=== PATIENT | male | born 1935 ===

== ENCOUNTER 2017-02-08 09:14 | Emergency (ER) | payer MEDICARE, OTHER ==
[2017-02-08 09:22] VITALS: BMI 30.9
[2017-02-08 09:25] VITALS: RESP 18
[2017-02-08 10:10] LABS: BASO % 0.5 % (0.0-2.0); EOS # 0.2 K/uL (0.0-0.7); EOS % 3.6 % (0.0-4.0); LYMPH # 1.2 K/uL (1.0-4.3); LYMPH % 21.1 % (20.0-40.0); MEAN CELL VOLUME 97.8 fL (80.0-94.0); MEAN CORPUSCULAR HEMOGLOBIN 31.8 pg (27.0-31.0); MEAN CORPUSCULAR HGB CONC 32.6 g/dL (33.0-37.0); MEAN PLATELET VOLUME 9.7 fL (7.2-11.7); MONO # 0.3 K/uL (0.0-0.8); MONO % 4.9 % (0.0-10.0); NEUT # 3.9 K/uL (1.8-7.0); NEUT % 69.9 % (50.0-75.0); NRBC % 0.1 % (0.0-2.0); RBC 3.78 Mil/uL (4.40-5.90); RED CELL DISTRIBUTION WIDTH 13.4 % (11.5-14.5); WHITE BLOOD COUNT 5.6 K/uL (4.8-10.8)
[2017-02-08 10:19] LABS: ALBUMIN 3.8 g/dL (3.5-5.0)
[2017-02-08 10:22] LABS: ALB/GLOB RATIO 1.1 (1.0-2.1); AST/SGOT 19 U/L (17-59); BLOOD UREA NITROGEN 20 mg/dL (9-20); GFR AFRICAN-AMERICAN > 60; GFR NON-AFRICAN AMERICAN > 60
[2017-02-08 10:23] LABS: ALT/SGPT 16 U/L (21-72); CALCIUM 8.5 mg/dl (8.6-10.4); LIPASE 79 U/L (23-300)
[2017-02-08] MEDS ORDERED: (Novolin R) Insulin Human Regular 100 units/ml vial IV ONE (10:28)
[2017-02-08 10:29] LABS: CK-MB 1.14 ng/mL (0.0-3.38)
--- NOTE | 2017-02-08 10:37 | C.PDOC ---
History Of Present Illness 81 y/o male that presents to the ED for evaluation of constant mid and low back pain that radiates to chest for the last 6 days. Patient states that pain is worse with movement. Notes having similar symptoms in the past when he was in [place], seen by a physician there at that time who provided pain medication - patient unsure of the cause his symptoms. He denies extremity weakness, sensory changes, urinary/bowel incontinence, urinary retention, dysuria, abdominal pain, nausea, vomiting, shortness of breath, fever/chills, Time Seen by Provider: 02/08/17 09:28 Chief Complaint (Nursing): Back Pain History Per: Patient History/Exam Limitations: no limitations Onset/Duration Of Symptoms: Days (6) Current Symptoms Are (Timing): Still Present Quality Of Discomfort: "Pain" Severity: Moderate Previous Symptoms: Back Pain. denies: Chronic Pain Associated Symptoms: None. denies: Incontinence, New Weakness, New Numbness Exacerbating Factor(s): Movement Additional History Per: Patient Past Medical History Reviewed: Historical Data, Nursing Documentation, Vital Signs Vital Signs: Last Vital Signs Temp 98.1 F 02/08/17 14:10 Pulse 52 L 02/08/17 14:10 Resp 18 02/08/17 14:10 BP 121/60 02/08/17 14:10 Pulse Ox 96 02/08/17 14:10 - Medical History PMH: Cardia Arrhythmia, Diabetes (IDDM), HTN, Hypercholesterolemia, Peripheral Edema Family History: States: No Known Family Hx - Social History Hx Alcohol Use: No Hx Substance Use: No - Immunization History Hx Tetanus Toxoid Vaccination: No Hx Influenza Vaccination: No Hx Pneumococcal Vaccination: No Review Of Systems Except As Marked, All Systems Reviewed And Found Negative. Constitutional: Negative for: Fever, Chills Cardiovascular: Negative for: Chest Pain Respiratory: Negative for: Cough, Shortness of Breath Gastrointestinal: Negative for: Nausea, Vomiting, Abdominal Pain Genitourinary: Negative for: Dysuria, Frequency, Incontinence Musculoskeletal: Positive for: Back Pain Skin: Negative for: Rash Neurological: Negative for: Weakness, Numbness Physical Exam - Physical Exam Appears: Non-toxic, Other (In moderate pain) Skin: Normal Color, Warm, Dry, No Rash Head: Atraumatic, Normacephalic Eye(s): bilateral: Normal Inspection Oral Mucosa: Moist Neck: Normal, Normal ROM, No Midline Cervical Tenderness, No Paracervical Tenderness, No Step Off Deformity, Supple Chest: Symmetrical, No Tenderness Cardiovascular: Rhythm Regular Respiratory: Normal Breath Sounds, No Rales, No Rhonchi, No Wheezing Gastrointestinal/Abdominal: Normal Exam, Bowel Sounds, Soft, No Tenderness, Other (obese abdomen) Back: No CVA Tenderness, No Vertebral Tenderness, Paraspinal Tenderness ( bilateral lower thoracic/upper lumbar paraspinal TTP) Extremity: Normal ROM, No Tenderness, No Pedal Edema, No Calf Tenderness, No Deformity Extremity: Bilateral: Atraumatic, Normal Color And Temperature, Normal ROM Pulses: Left Dorsalis Pedis: Normal, Right Dorsalis Pedis: Normal Neurological/Psych: Oriented x3, Normal Motor, Normal Sensation Gait: Steady ED Course And Treatment - Laboratory Results Result Diagrams: 02/08/17 10:02 02/08/17 10:02 ECG: Interpreted By Me, Viewed By Me (NSR 68 bpm, normal axis, RBBB, no acute ST changes) ECG Interpretation: No Acute Changes O2 Sat by Pulse Oximetry: 100 (on RA) Pulse Ox Interpretation: Normal - CT Scan/US ct chest/abd angio Other Rad Studies (CT/US): Read By Radiologist, Radiology Report Reviewed CT/US Interpretation: Accession No. : [id number]. Patient Name / ID : EDUARDO STEVE / [id number]. Exam Date : 02/08/2017 11:24:45 ( Approved ). Study Comment : Sex / Age : M / 81Y. Creator : KAREN RHODES. Dictator : Manager Eligibility : Lab Instructor : KAREN RHODES. Approver2 : Report Date : 2016 20:36:00. My Comment : . [facility] Division of Radiology. [address] [place] [address]. Tel. no. . . . Patient Name: EVI CLARK . Pt. Address: [address] [place] [address]. Rec #: [id number]. [place] [address]: Hrotencia Cardoso DO Pt Phone: Order Location: [facility] : 1935 Male Age : 81 Order #: [id number]. Reason for exam: back, chest, epigastric pain - evaluate aorta. . . . . . CT Scan. . . ANGIO CHEST/ABDOMEN/PELVIS Exam Date: . . This imaging exam was performed at [facility]. EXAM: CT Chest Without and With Intravenous Contrast. CT Abdomen and Pelvis Without and With Intravenous Contrast. . CLINICAL HISTORY: 81 years old, male; Pain; Chest pain; Type not specified; Abdominal pain;. Epigastric; Additional info: Back, chest, epigastric pain - evaluate aorta. . TECHNIQUE: Axial computed tomography images of the chest, abdomen and pelvis without and. with intravenous contrast during the arterial phase of enhancement. This CT. exam was performed using one or more of the following dose reduction. techniques: automated exposure control, adjustment of the mA and/or kV. according to patient size, and/or use of iterative reconstruction technique. Coronal and sagittal reformatted images were created and reviewed. . CONTRAST: 100 mL of [id number] administered intravenously. . COMPARISON: No relevant prior studies available. . FINDINGS: . VASCULATURE: Aorta: No acute findings. No aortic aneurysm. No dissection. Pulmonary arteries: Unremarkable as visualized. No pulmonary embolism is. identified. Great vessels of aortic arch: No acute findings. No dissection. No. arterial occlusion or significant stenosis. Celiac trunk and mesenteric arteries: No acute findings. No occlusion or. significant stenosis. Renal arteries: No acute findings. No occlusion or significant stenosis. Iliac arteries: No acute findings. No occlusion or significant stenosis. . CHEST: Lungs: Hypoventilatory changes are noted in the dependent portion of both. lung bases. Pleural space: Unremarkable. No significant effusion. No pneumothorax. Heart: Unremarkable. No cardiomegaly. No significant pericardial effusion. Mediastinum: There is a small hiatal hernia. Thyroid: The 1.7 cm hypodense nodule is noted in the right lobe of the. thyroid posteriorly. . ABDOMEN: Liver: Hepatic parenchymal calcifications are present. Gallbladder and bile ducts: Unremarkable. No calcified stones. No ductal. dilation. Pancreas: Unremarkable. No ductal dilation. No mass. Spleen: Unremarkable. No splenomegaly. Adrenals: Unremarkable. No mass. Kidneys and ureters: Parapelvic cyst is noted in the mid right kidney with a. maximum diameter of 4 cm and a density measurement of 6H. A. 4 mm low density. lesion in the upper pole right kidney is too small to fully characterize. An. exophytic cyst projects off the midportion of the left kidney with a maximal. diameter of 1.3 cm and in the density measurement of 4H. A second cyst seen in. the upper pole of the left kidney with a maximum diameter 1.4 cm and a density. measurement of 8H In the lower pole of left kidney there is a 1.9 cm cyst with. a density measurement of 6H. No obstructing stones. Stomach and bowel: Unremarkable. No obstruction. No mucosal thickening. Appendix: No findings to suggest acute appendicitis. . PELVIS: Bladder: Unremarkable. No stones. No mass. Reproductive: Unremarkable as visualized. . CHEST, ABDOMEN and PELVIS: Intraperitoneal space: Unremarkable. No significant fluid collection. No. free air. Bones/joints: Degenerative changes are noted of the thoracic spine. Bridging osteophytes are noted on the right side of several adjacent thoracic. vertebral bodies. No acute fracture. No dislocation. Soft tissues: Unremarkable. Lymph nodes: Unremarkable. No enlarged lymph nodes. . IMPRESSION: 1. No evidence of a aortic dissection or aneurysm. No pulmonary embolism. . 2. Small hiatal hernia. . 3. Bilateral renal cysts. . 4. Degenerative changes of the thoracic spine. . 5. Nodule in the right lobe of the thyroid measuring 1.7 cm. . . . . EXAM: CT Abdomen and Pelvis Without and With Intravenous Contrast. . CLINICAL HISTORY: 81 years old, male; Pain; Chest pain; Type not specified; Abdominal pain;. Epigastric; Additional info: Back, chest, epigastric pain - evaluate aorta. . TECHNIQUE: Axial computed tomography images of the abdomen and pelvis without and with. intravenous contrast during the arterial phase of enhancement. This CT exam. was performed using one or more of the following dose reduction techniques: automated exposure control, adjustment of the mA and/or kV according to patient. size, and/or use of iterative reconstruction technique. Coronal and sagittal reformatted images were created and reviewed. . CONTRAST: 100 mL of [id number] administered intravenously. . EXAM DATE/TIME: Exam ordered 02/08/2017 9 :45 AM. . COMPARISON: No relevant prior studies available. . FINDINGS: Lower thorax: No acute findings. . VASCULATURE: Aorta: No acute findings. No abdominal aortic aneurysm. No dissection. Celiac trunk and mesenteric arteries: No acute findings. No occlusion or. significant stenosis. Renal arteries: No acute findings. No occlusion or significant stenosis. Iliac arteries: No acute findings. No occlusion or significant stenosis. . ABDOMEN : Liver: Hepatic parenchymal calcifications are present. Gallbladder and bile ducts: Unremarkable. No calcified stones. No ductal. dilation. Pancreas: Unremarkable. No ductal dilation. No mass. Spleen: Unremarkable. No splenomegaly. Adrenals: Unremarkable. No mass. Kidneys and ureters: Parapelvic cyst is noted in the mid right kidney with a. maximum diameter of 4 cm and a density measurement of 6H.. A 4 mm low density. lesion in the upper pole right kidney is too small to fully characterize. An. exophytic cyst projects off the midportion of the left kidney with a maximal. diameter of 1.3 cm and a density measurement of 4H. A second cyst seen in the. upper pole of the left kidney with a maximum diameter 1.4 cm and a density. measurement of 8H. In the lower pole of left kidney there is a 1.9 cm cyst. with a density measurement of 6H. No obstructing stones. Stomach and bowel: Unremarkable. No obstruction. No mucosal thickening. Appendix: No findings to suggest acute appendicitis. . PELVIS: Bladder: Unremarkable. No stones. No mass. Reproductive: The prostate measures 4.7 x 4.8 x 5.6 cm. . ABDOMEN and PELVIS : Intraperitoneal space: Unremarkable. No significant fluid collection. No. free air. Bones/joints: No acute fracture. No dislocation. Soft tissues: There is a small umbilical hernia containing fat. Lymph nodes: Unremarkable. No enlarged lymph nodes. . IMPRESSION: 1. No evidence of aortic dissection. . 2. Hepatic parenchymal calcifications suggest previous granulomatous disease. . 3. Bilateral renal cysts. . 4. Small umbilical hernia containing fat. . Dictated By: Karen Rhodes MD. Dictated Date/Time: 02/08/172035. Signed By: Karen Rhodes MD. Date Signed: 02/08/172035. Transcribed By: MEDMIREILLE. Transcribe Date/Time: 02/08/172035. [facility] Progress Note: Blood work, EKG, CT Angio chest/abdomen ordered and reviewed. Patient given PO tylenol and flexeril. IV insulin given for hyperglycemia. Reevaluation Time: 13:50 Reassessment Condition: Improved (On reassessment, patient states his pain has improved and he feels better. He is ambulating normally in ED. CT angio (-) for aortic dissection/PE. Patient made aware of incidental CT findings and given copies of results to bring to his doctor. He was instructed to follow up with PMD in 1-2 days, and understands he should return to ED if symptoms worsen. ) Disposition Counseled Patient/Family Regarding: Studies Performed, Diagnosis, Need For Followup, Rx Given - Disposition Referrals: Andre Freedman MD [Staff Provider] - Disposition: HOME/ ROUTINE Disposition Time: 13:55 Condition: STABLE Additional Instructions: SEGUIMIENTO CON VELAZQUEZ MDICO EN 1-2 VAZ USE MEDICAMENTOS NARCISA SEA NECESARIO DEVUELVA A LA GEOVANNY DE EMERGENCIA SI LOS SNTOMAS EMPEORARAN Prescriptions: Cyclobenzaprine [Cyclobenzaprine HCl] 10 mg PO BID PRN #12 tab PRN Reason: pain/muscle Naproxen [Naprosyn Tab] 375 mg PO BID PRN #20 tab PRN Reason: pain Instructions: Back Pain (ED) Print Language: SLOVAK - POA Present On Arrival: None - Clinical Impression Clinical Impression: Back pain - Scribe Statement The provider has reviewed the documentation as recorded by the Angelineiblora Thakur All medical record entries made by the Angelineiblora were at my direction and personally dictated by me. I have reviewed the chart and agree that the record accurately reflects my personal performance of the history, physical exam, medical decision making, and the department course for this patient. I have also personally directed, reviewed, and agree with the discharge instructions and disposition.
[2017-02-08] MEDS ORDERED: (Novolin R) Insulin Human Regular 100 units/ml vial ONE (11:04)
[2017-02-08] MEDS ORDERED: Iodixanol 320 mg/ml 150 ml Bottle IV ONE (11:18)
[2017-02-08 11:38] LABS: URINE BILIRUBIN NEGATIVE (NEGATIVE); URINE CLARITY Clear (Clear); URINE COLOR Yellow (YELLOW); URINE GLUCOSE (UA) 3+ mg/dL (Normal); URINE LEUKOCYTE ESTERASE NEG Leu/uL (Negative); URINE NITRATE NEGATIVE (NEGATIVE); URINE PROTEIN 1+ mg/dL (NEGATIVE); URINE UROBILINOGEN NORMAL mg/dL (0.2-1.0)
[2017-02-08 11:45] LABS: SQUAMOUS EPITHIAL 1 /hpf (0-5)
[2017-02-08 11:46] LABS: URINE BLOOD TRACE (NEGATIVE)
[2017-02-08 12:17] VITALS: PULSE 52
[2017-02-08 14:11] VITALS: BP 121/60; TEMP 98.1
--- NOTE | 2017-02-08 20:37 | CT ---
EXAM: CT Chest Without and With Intravenous Contrast CT Abdomen and Pelvis Without and With Intravenous Contrast CLINICAL HISTORY: 81 years old, male; Pain; Chest pain; Type not specified; Abdominal pain; Epigastric; Additional info: Back, chest, epigastric pain - evaluate aorta TECHNIQUE: Axial computed tomography images of the chest, abdomen and pelvis without and with intravenous contrast during the arterial phase of enhancement. This CT exam was performed using one or more of the following dose reduction techniques: automated exposure control, adjustment of the mA and/or kV according to patient size, and/or use of iterative reconstruction technique. Coronal and sagittal reformatted images were created and reviewed. CONTRAST: 100 mL of [id number] administered intravenously. COMPARISON: No relevant prior studies available. FINDINGS: VASCULATURE: Aorta: No acute findings. No aortic aneurysm. No dissection. Pulmonary arteries: Unremarkable as visualized. No pulmonary embolism is identified. Great vessels of aortic arch: No acute findings. No dissection. No arterial occlusion or significant stenosis. Celiac trunk and mesenteric arteries: No acute findings. No occlusion or significant stenosis. Renal arteries: No acute findings. No occlusion or significant stenosis. Iliac arteries: No acute findings. No occlusion or significant stenosis. CHEST: Lungs: Hypoventilatory changes are noted in the dependent portion of both lung bases. Pleural space: Unremarkable. No significant effusion. No pneumothorax. Heart: Unremarkable. No cardiomegaly. No significant pericardial effusion. Mediastinum: There is a small hiatal hernia. Thyroid: The 1.7 cm hypodense nodule is noted in the right lobe of the thyroid posteriorly ABDOMEN: Liver: Hepatic parenchymal calcifications are present. Gallbladder and bile ducts: Unremarkable. No calcified stones. No ductal dilation. Pancreas: Unremarkable. No ductal dilation. No mass. Spleen: Unremarkable. No splenomegaly. Adrenals: Unremarkable. No mass. Kidneys and ureters: Parapelvic cyst is noted in the mid right kidney with a maximum diameter of 4 cm and a density measurement of 6H. A. 4 mm low density lesion in the upper pole right kidney is too small to fully characterize. An exophytic cyst projects off the midportion of the left kidney with a maximal diameter of 1.3 cm and in the density measurement of 4H. A second cyst seen in the upper pole of the left kidney with a maximum diameter 1.4 cm and a density measurement of 8H In the lower pole of left kidney there is a 1.9 cm cyst with a density measurement of 6H. No obstructing stones. Stomach and bowel: Unremarkable. No obstruction. No mucosal thickening. Appendix: No findings to suggest acute appendicitis. PELVIS: Bladder: Unremarkable. No stones. No mass. Reproductive: Unremarkable as visualized. CHEST, ABDOMEN and PELVIS: Intraperitoneal space: Unremarkable. No significant fluid collection. No free air. Bones/joints: Degenerative changes are noted of the thoracic spine. Bridging osteophytes are noted on the right side of several adjacent thoracic vertebral bodies. No acute fracture. No dislocation. Soft tissues: Unremarkable. Lymph nodes: Unremarkable. No enlarged lymph nodes. IMPRESSION: 1. No evidence of a aortic dissection or aneurysm. No pulmonary embolism. 2. Small hiatal hernia 3. Bilateral renal cysts. 4. Degenerative changes of the thoracic spine. 5. Nodule in the right lobe of the thyroid measuring 1.7 cm EXAM: CT Abdomen and Pelvis Without and With Intravenous Contrast CLINICAL HISTORY: 81 years old, male; Pain; Chest pain; Type not specified; Abdominal pain; Epigastric; Additional info: Back, chest, epigastric pain - evaluate aorta TECHNIQUE: Axial computed tomography images of the abdomen and pelvis without and with intravenous contrast during the arterial phase of enhancement. This CT exam was performed using one or more of the following dose reduction techniques: automated exposure control, adjustment of the mA and/or kV according to patient size, and/or use of iterative reconstruction technique. Coronal and sagittal reformatted images were created and reviewed. CONTRAST: 100 mL of [id number] administered intravenously. EXAM DATE/TIME: Exam ordered 02/08/2017 9:45 AM COMPARISON: No relevant prior studies available. FINDINGS: Lower thorax: No acute findings. VASCULATURE: Aorta: No acute findings. No abdominal aortic aneurysm. No dissection. Celiac trunk and mesenteric arteries: No acute findings. No occlusion or significant stenosis. Renal arteries: No acute findings. No occlusion or significant stenosis. Iliac arteries: No acute findings. No occlusion or significant stenosis. ABDOMEN: Liver: Hepatic parenchymal calcifications are present. Gallbladder and bile ducts: Unremarkable. No calcified stones. No ductal dilation. Pancreas: Unremarkable. No ductal dilation. No mass. Spleen: Unremarkable. No splenomegaly. Adrenals: Unremarkable. No mass. Kidneys and ureters: Parapelvic cyst is noted in the mid right kidney with a maximum diameter of 4 cm and a density measurement of 6H.. A 4 mm low density lesion in the upper pole right kidney is too small to fully characterize. An exophytic cyst projects off the midportion of the left kidney with a maximal diameter of 1.3 cm and a density measurement of 4H. A second cyst seen in the upper pole of the left kidney with a maximum diameter 1.4 cm and a density measurement of 8H. In the lower pole of left kidney there is a 1.9 cm cyst with a density measurement of 6H. No obstructing stones. Stomach and bowel: Unremarkable. No obstruction. No mucosal thickening. Appendix: No findings to suggest acute appendicitis. PELVIS: Bladder: Unremarkable. No stones. No mass. Reproductive: The prostate measures 4.7 x 4.8 x 5.6 cm. ABDOMEN and PELVIS: Intraperitoneal space: Unremarkable. No significant fluid collection. No free air. Bones/joints: No acute fracture. No dislocation. Soft tissues: There is a small umbilical hernia containing fat Lymph nodes: Unremarkable. No enlarged lymph nodes. IMPRESSION: 1. No evidence of aortic dissection. 2. Hepatic parenchymal calcifications suggest previous granulomatous disease. 3. Bilateral renal cysts. 4. Small umbilical hernia containing fat.
--- NOTE | 2017-02-10 13:31 | CARD ---
APPROVED REPORT EKG Measurement Heart [id number] CO [id number] <Conclusion> Normal sinus rhythm Right bundle branch block Abnormal ECG
[2017-02-18 09:07] VITALS: O2SAT 100
== END 2017-02-08 14:13 | disposition home or self-care (01) ==
LOC: C.ER 09:14
DX: M54.89 Other dorsalgia (principal); E11.9 Type 2 diabetes mellitus without complications
CPT/HCPCS: 71270; 74175; 80053; 81001; 82550; 82553; 82948; 83690; 84484; 85025; 93005; 96374; 96375; 99284; J1885; Q9965

== ENCOUNTER 2017-05-25 17:07 | Inpatient (IN) | payer MEDICARE, OTHER ==
[2017-05-25 17:07] VITALS: BMI 30.9
--- NOTE | 2017-05-25 17:26 | C.PDOC ---
History Of Present Illness 81 year old male, whose PMHx includes Diabetes, HTN, and unknown heart disease, is brought to the ED by EMS for evaluation of a pressure and tightness sensation to his chest which has been constant for the past 4 days. Patient states his symptoms are exacerbated with movement and deep inspiration. He also reports experiencing shortness of breath for 1 day. Patient reports taking Advil and Aspirin at home with some relief. Patient denies fever, chills, cough. Patient was evaluated in [facility] on 02/2017 for similar complaints. Patient underwent a chest/abdomen/pelvis CTA, which was negative for aortic dissection/ PE. Time Seen by Provider: 05/25/17 17:14 Chief Complaint (Nursing): Chest Pain History Per: Patient History/Exam Limitations: no limitations Onset/Duration Of Symptoms: Hrs Current Symptoms Are (Timing): Still Present Quality: Tightness, Pressure, "Pain" Exacerbating Factors: Movement, Deep Breathing Additional History Per: Patient Past Medical History Reviewed: Historical Data, Nursing Documentation, Vital Signs Vital Signs: Last Vital Signs Temp 98.9 F 05/25/17 17:12 Pulse 56 L 05/25/17 18:22 Resp 15 05/25/17 18:22 BP 132/63 05/25/17 18:22 Pulse Ox 97 05/25/17 20:16 - Medical History PMH: Cardia Arrhythmia, Diabetes (IDDM), HTN, Hypercholesterolemia, Peripheral Edema Denies: Chronic Kidney Disease Surgical History: No Surg Hx Family History: States: Unknown Family Hx - Social History Hx Alcohol Use: Yes Hx Substance Use: No - Immunization History Hx Tetanus Toxoid Vaccination: No Hx Influenza Vaccination: Yes (2016) Hx Pneumococcal Vaccination: Yes Review Of Systems Constitutional: Negative for: Fever, Chills Cardiovascular: Positive for: Chest Pain Respiratory: Negative for: Cough, Shortness of Breath Physical Exam - Physical Exam Appears: Non-toxic, No Acute Distress Skin: Normal Color, Warm, Dry Head: Atraumatic, Normacephalic Eye(s): bilateral: Normal Inspection Oral Mucosa: Moist Neck: Supple Chest: Symmetrical, No Deformity, No Tenderness Cardiovascular: Rhythm Regular, No Murmur Respiratory: Rales (left base), No Rhonchi, No Wheezing Gastrointestinal/Abdominal: Soft, No Tenderness, No Guarding, No Rebound Extremity: Normal ROM, No Pedal Edema, Capillary Refill (less than 2 seconds ) Pulses: Left Dorsalis Pedis: Normal, Right Dorsalis Pedis: Normal Neurological/Psych: Oriented x3, Normal Speech, Normal Cognition Gait: Steady ED Course And Treatment - Laboratory Results Result Diagrams: 05/25/17 17:23 05/25/17 17:23 Lab Interpretation: Abnormal (d-dimer 485) ECG: Interpreted By Me, Viewed By La ECG Rhythm: R BBB (with PACs) ECG Interpretation: No Changes From Prior O2 Sat by Pulse Oximetry: 97 (on RA) Pulse Ox Interpretation: Normal - Radiology CXR: Interpreted by Me CXR Interpretation: Yes: No Acute Disease - CT Scan/US CT Angio Other Rad Studies (CT/US): Interpreted By Me, Read By Radiologist, Radiology Report Reviewed CT/US Interpretation: EXAM: CT Angiography Chest With Intravenous Contrast. CLINICAL HISTORY: 81 years old, male; Chest pain and dyspnea. Elevated d- dimer. Rule out pulmonary embolism. TECHNIQUE: Axial computed tomographic angiography images of the chest with intravenous contrast using. pulmonary embolism protocol. All CT scans at this facility use one or more dose reduction. techniques, viz.: automated exposure control; ma/kV adjustment per patient size (including targeted. exams where dose is matched to indication; i.e. head); or iterative reconstruction technique. MIP reconstructed images were created and reviewed. Coronal and sagittal reformatted images were created and reviewed. CONTRAST: 100 mL of VISIPAQUE 320 administered intravenously. COMPARISON: Report from the CTA of the chest, abdomen and pelvis dated February 08, 2017. The images are not. available for review. FINDINGS : Pulmonary arteries: The timing of the contrast in the pulmonary arteries is delayed. No central. pulmonary embolism. The peripheral pulmonary artery branches are not optimally assessed. Aorta: Atherosclerotic calcifications of the aorta, great vessels, coronary arteries and aortic valve. No thoracic aortic aneurysm or dissection. Lungs: Small dependent atelectasis is noted at the lung bases. No infiltrate or pulmonary nodule. The central airways are patent. Pleural space: No pneumothorax or pleural effusion is seen. Heart: The left ventricular myocardium is thickened. It measures 1.9 CM in thickness in the lateral. wall. Thinning of the left ventricular apex. No pericardial effusion is seen. Thyroid: 1.9 CM hypoattenuation in the posterior right thyroid lobe. Bones/joints: Mild dextroscoliosis and degenerative spurs in the thoracic spine. Hypertrophic facet. joints cause indentation of the posterior lateral thecal sac in the thoracic spine. At the T9-10, it. contributes to spinal canal stenosis. No acute fracture. No dislocation. Soft tissues: Unremarkable. Lymph nodes: Unremarkable. No enlarged lymph nodes. Liver: Scattered hepatic granulomas. Pancreas: Fatty infiltration of the pancreas. Kidneys: In the left kidney, there are 1.3 CM hypoattenuation in the upper pole , 1.2 CM exophytic. cortical hypoattenuation in the mid, 2.2 CM hypoattenuation in the lower pole kidney. In the right. kidney, there are 7 mm tiny hypoattenuation in the upper pole and 4.2 CM peripelvic cyst in the mid. kidney. No calculus or hydronephrosis. IMPRESSION: No central pulmonary embolism but delayed IV contrast in the pulmonary arteries. Thickened left ventricular myocardium. Left apical thinning versus old infarct. Peripheral vascular calcifications including the coronary arteries. 1.9 CM right thyroid nodule, described on the prior study. Bilateral renal cysts. Progress Note: Bloodwork, urinalysis, CXR, EKG ordered and reviewed. Reevaluation Time: 21:24 Reassessment Condition: Improved (Patient remains comfortable) - Physician Consult Information Time Consulting Physician Contacted: 21:24 Physician Contacted: Darren Yates MD Outcome Of Conversation: Patient to be admitted for cardiac observation. Disposition - Disposition Disposition: HOSPITALIZED Disposition Time: 21:24 Condition: STABLE - Clinical Impression Clinical Impression: Chest pain - Scribe Statement The provider has reviewed the documentation as recorded by the Scribe (Noris Thakur) Provider Attestation: All medical record entries made by the Scribe were at my direction and personally dictated by me. I have reviewed the chart and agree that the record accurately reflects my personal performance of the history, physical exam, medical decision making, and the department course for this patient. I have also personally directed, reviewed, and agree with the discharge instructions and disposition.
[2017-05-25 17:27] LABS: BASO % 0.4 % (0.0-2.0); EOS # 0.2 K/uL (0.0-0.7); EOS % 3.5 % (0.0-4.0); HEMATOCRIT 38.2 % (35.0-51.0); LYMPH # 1.4 K/uL (1.0-4.3); LYMPH % 25.3 % (20.0-40.0); MEAN CELL VOLUME 97.6 fL (80.0-94.0); MEAN CORPUSCULAR HEMOGLOBIN 32.1 pg (27.0-31.0); MEAN CORPUSCULAR HGB CONC 32.9 g/dL (33.0-37.0); MEAN PLATELET VOLUME 9.7 fL (7.2-11.7); MONO # 0.3 K/uL (0.0-0.8); MONO % 4.7 % (0.0-10.0); NRBC % 0.1 % (0.0-2.0); RED CELL DISTRIBUTION WIDTH 13.1 % (11.5-14.5); WHITE BLOOD COUNT 5.5 K/uL (4.8-10.8)
[2017-05-25 17:35] LABS: CHLORIDE 96 mmol/L (98-107); POTASSIUM 4.5 mmol/L (3.6-5.2); SODIUM 135 mmol/L (132-148)
[2017-05-25 17:37] LABS: ALB/GLOB RATIO 1.4 (1.0-2.1); ALKALINE PHOSPHATASE 57 U/L (38-126); AST/SGOT 21 U/L (17-59); BILIRUBIN,TOTAL 0.8 mg/dL (0.2-1.3); CARBON DIOXIDE 27 mmol/L (22-30); GFR AFRICAN-AMERICAN > 60; TOTAL PROTEIN 7.9 g/dL (6.3-8.3)
[2017-05-25 17:38] LABS: ALT/SGPT 31 U/L (21-72); BLOOD UREA NITROGEN 19 mg/dL (9-20); CALCIUM 9.8 mg/dl (8.6-10.4); GLUCOSE,RANDOM 188 mg/dL (75-110)
[2017-05-25] MEDS ORDERED: Iodixanol 320 MG/ML 100 ML BOTTLE IV ONE (18:22)
--- NOTE | 2017-05-25 22:27 | CP.PCM.HP ---
<AndresVandana CharlotteTran - Last Filed: 05/25/17 22:35> History of Present Illness - History of Present Illness History of Present Illness: CC: "Chest Pain" HPI: 81 year old male presents to the emergency room for chest pain. Patient states he has been having chest pain since Friday. The pain is constant and it is a 7/10. He states he only uses one pillow to sleep and the pain is made worse when he is laying down. He states he only had shortness of breath one night because he was congested but otherwise he does not experience shortness of breath. He states he comes today to the hospital because his sugar was about 350. He also states he has been having back pain on his right side that radiates to his left side which is constant and also started on Friday. Patient denies heart attacks in the past. PMD: Dr. Freedman Past Medical history: hypertension, diabetes, hyperlipidemia, BPH Past surgical history: right ankle surgery Past Family History: Mom- heart disease and diabetes Medications: Humulin 70/30; Valsartan 320mg daily; Nifedipine ER 60mg daily; Metformin 1,000mg BID; Furosemide 20mg daily; Dutasteride-tamsulosin .5-.4 ACHS Allergies: NKDA Social History: Past smoker - quit about 15 year ago, alcohol- quit about 15 year ago, denies illicit drug use, lives at home with , retired - previously worked as a [employer]. Present on Admission - Present on Admission Any Indicators Present on Admission: No Review of Systems - Constitutional Constitutional: absent: Fever, Headache, Night Sweats - EENT Eyes: absent: Change in Vision Nose/Mouth/Throat: absent: Nasal Discharge - Cardiovascular Cardiovascular: Chest Pain. absent: Dyspnea, Lightheadedness, Palpitations, Pedal Edema - Respiratory Respiratory: absent: Cough, Dyspnea - Gastrointestinal Gastrointestinal: absent: Constipation, Diarrhea, Nausea, Vomiting - Genitourinary Genitourinary: absent: Dysuria - Musculoskeletal Musculoskeletal: Back Pain - Neurological Neurological: absent: Dizziness, Headaches - Endocrine Endocrine: absent: Fatigue, Palpitations Past Patient History - Past Medical History & Family History Past Medical History?: Yes - Past Social History Smoking Status: Former Smoker - CARDIAC Hx Cardia Arrhythmia: Yes Hx Hypercholesterolemia: Yes Hx Hypertension: Yes Hx Peripheral Edema: Yes - PULMONARY Hx Respiratory Disorders: No - NEUROLOGICAL Hx Neurological Disorder: No - HEENT Hx HEENT Problems: No - RENAL Hx Chronic Kidney Disease: No - ENDOCRINE/METABOLIC Hx Endocrine Disorders: Yes Hx Diabetes Mellitus Type 2: Yes - HEMATOLOGICAL/ONCOLOGICAL Hx Blood Disorders: No - INTEGUMENTARY Hx Dermatological Problems: No - MUSCULOSKELETAL/RHEUMATOLOGICAL Hx Musculoskeletal Disorders: No Hx Falls: No - GASTROINTESTINAL Hx Gastrointestinal Disorders: No - GENITOURINARY/GYNECOLOGICAL Hx Genitourinary Disorders: Yes Hx Prostate Problems: Yes - PSYCHIATRIC Hx Substance Use: No - SURGICAL HISTORY Hx Surgeries: Yes Hx Orthopedic Surgery: Yes (left ankle) Other/Comment: Lt. lower leg surgery - ANESTHESIA Hx Anesthesia: Yes Hx Anesthesia Reactions: No Hx Malignant Hyperthermia: No Meds Allergies/Adverse Reactions: Allergies Allergy/AdvReac Type Severity Reaction Status Date / Time No Known Allergies Allergy Verified 05/25/17 17:17 Physical Exam - Constitutional Appears: Well, No Acute Distress - Head Exam Head Exam: ATRAUMATIC, NORMAL INSPECTION, NORMOCEPHALIC - Eye Exam Eye Exam: EOMI, Normal appearance, PERRL Pupil Exam: NORMAL ACCOMODATION - ENT Exam ENT Exam: Mucous Membranes Moist - Respiratory Exam Respiratory Exam: Clear to Auscultation Bilateral, NORMAL BREATHING PATTERN. absent: Rales, Rhonchi, Wheezes, Stridor - Cardiovascular Exam Cardiovascular Exam: REGULAR RHYTHM, RRR, +S1, +S2 - GI/Abdominal Exam GI & Abdominal Exam: Normal Bowel Sounds, Soft. absent: Tenderness - Extremities Exam Extremities exam: Positive for: normal inspection. Negative for: pedal edema, tenderness - Neurological Exam Neurological exam: Alert, CN II-XII Intact, Oriented x3 - Expanded Neurological Exam Expanded Patient oriented to: person, place, time Cranial nerves: EOM's Intact: Normal Sensory exam: Upper Extremity 2 Point Discrimination: Normal Neuro motor strength exam: Left Upper Extremity: 5, Right Upper Extremity: 5, Left Lower Extremity: 5, Right Lower Extremity: 5 Coma Scale Eye Opening: SPONTANEOUS Coma Scale Motor Response: OBEYS COMMANDS - Psychiatric Exam Psychiatric exam: Normal Affect, Normal Mood - Skin Skin Exam: Normal Color, Warm Results - Vital Signs Recent Vital Signs: Last Vital Signs Temp 98.9 F 05/25/17 17:12 Pulse 56 L 05/25/17 18:22 Resp 15 05/25/17 18:22 BP 132/63 05/25/17 18:22 Pulse Ox 97 05/25/17 21:25 - Labs Result Diagrams: 05/25/17 17:23 05/25/17 17:23 Labs: Laboratory Results - last 24 hr 05/25/17 05/25/17 05/25/17 17:23 17:23 17:23 WBC 5.5 RBC 3.92 L Hgb 12.6 Hct 38.2 MCV 97.6 H MCH 32.1 H MCHC 32.9 L RDW 13.1 Plt Count 239 MPV 9.7 Neut % (Auto) 66.1 Lymph % (Auto) 25.3 [place] % (Auto) 4.7 Eos % (Auto) 3.5 Baso % (Auto) 0.4 Neut # 3.6 Lymph # 1.4 [place] # 0.3 Eos # 0.2 Baso # 0.0 D-Dimer, Quantitative 485 H Sodium 135 Potassium 4.5 Chloride 96 L Carbon Dioxide 27 Anion Gap 17 BUN 19 Creatinine 0.8 Est GFR ( Amer) > 60 Est GFR (Non-Af Amer) > 60 POC Glucose (mg/dL) Random Glucose 188 H Calcium 9.8 Total Bilirubin 0.8 AST 21 ALT 31 Alkaline Phosphatase 57 Troponin I < 0.0120 NT-Pro-B Natriuret Pep 62.1 Total Protein 7.9 Albumin 4.6 Globulin 3.3 Albumin/Globulin Ratio 1.4 Lipase 100 05/25/17 17:23 WBC RBC Hgb Hct MCV MCH MCHC RDW Plt Count MPV Neut % (Auto) Lymph % (Auto) [place] % (Auto) Eos % (Auto) Baso % (Auto) Neut # Lymph # [place] # Eos # Baso # D-Dimer, Quantitative Sodium Potassium Chloride Carbon Dioxide Anion Gap BUN Creatinine Est GFR ( Amer) Est GFR (Non-Af Amer) POC Glucose (mg/dL) 190 H Random Glucose Calcium Total Bilirubin AST ALT Alkaline Phosphatase Troponin I NT-Pro-B Natriuret Pep Total Protein Albumin Globulin Albumin/Globulin Ratio Lipase Assessment & Plan - Assessment and Plan (Free Text) Assessment: 1.) r/o Acute Coronary Syndrome - Admit to Tele - vitals q4 - 1st Tropinin Negative - f/u SHERYL x2 - Cardiology Consult: Dr. Aviles --> help appreciated - Aspirin 81mg daily - Tylenol PRN for pain - f/u Lipid panel, TSH 2.) History of Diabetes - Insulin Sliding scale - Accucheks - f/u Ha1C 3.) History of Hypertension - Losartan 100mg daily - Nifedipine ER 60mg daily - Furosemide 20mg daily 4.) History of BPH - Tamsulosin daily 5.) Prophylaxis - Protonix - Heparin SC 5,000 daily Case Discussed with Dr. Trudy Campos PGY-1 <Trudy SU,Darren - Last Filed: 05/26/17 09:23> Results - Vital Signs Recent Vital Signs: Last Vital Signs Temp 98.4 F 05/26/17 00:00 Pulse 64 05/26/17 08:20 Resp 13 05/26/17 04:00 BP 154/71 H 05/26/17 03:35 Pulse Ox 99 05/26/17 04:00 - Labs Result Diagrams: 05/26/17 05:34 05/26/17 05:34 Labs: Laboratory Results - last 24 hr 05/25/17 05/25/17 05/25/17 17:23 17:23 17:23 WBC 5.5 RBC 3.92 L Hgb 12.6 Hct 38.2 MCV 97.6 H MCH 32.1 H MCHC 32.9 L RDW 13.1 Plt Count 239 MPV 9.7 Neut % (Auto) 66.1 Lymph % (Auto) 25.3 [place] % (Auto) 4.7 Eos % (Auto) 3.5 Baso % (Auto) 0.4 Neut # 3.6 Lymph # 1.4 [place] # 0.3 Eos # 0.2 Baso # 0.0 APTT D-Dimer, Quantitative 485 H Sodium 135 Potassium 4.5 Chloride 96 L Carbon Dioxide 27 Anion Gap 17 BUN 19 Creatinine 0.8 Est GFR ( Amer) > 60 Est GFR (Non-Af Amer) > 60 POC Glucose (mg/dL) Random Glucose 188 H Hemoglobin A1c Calcium 9.8 Total Bilirubin 0.8 AST 21 ALT 31 Alkaline Phosphatase 57 Total Creatine Kinase CK-MB (Mass) Troponin I < 0.0120 Troponin I, Quant NT-Pro-B Natriuret Pep 62.1 Total Protein 7.9 Albumin 4.6 Globulin 3.3 Albumin/Globulin Ratio 1.4 Triglycerides Cholesterol LDL Cholesterol Direct HDL Cholesterol Lipase 100 TSH 3rd Generation 05/25/17 05/25/17 05/26/17 17:23 23:19 04:27 WBC RBC Hgb Hct MCV MCH MCHC RDW Plt Count MPV Neut % (Auto) Lymph % (Auto) [place] % (Auto) Eos % (Auto) Baso % (Auto) Neut # Lymph # [place] # Eos # Baso # APTT D-Dimer, Quantitative Sodium Potassium Chloride Carbon Dioxide Anion Gap BUN Creatinine Est GFR ( Amer) Est GFR (Non-Af Amer) POC Glucose (mg/dL) 190 H 76 Random Glucose Hemoglobin A1c Calcium Total Bilirubin AST ALT Alkaline Phosphatase Total Creatine Kinase 43 L CK-MB (Mass) 0.77 Troponin I Troponin I, Quant 0.0150 NT-Pro-B Natriuret Pep Total Protein Albumin Globulin Albumin/Globulin Ratio Triglycerides Cholesterol LDL Cholesterol Direct HDL Cholesterol Lipase TSH 3rd Generation 05/26/17 05/26/17 05/26/17 05:34 05:34 05:34 WBC 5.7 RBC 3.82 L Hgb 12.4 Hct 37.0 MCV 96.9 H MCH 32.5 H MCHC 33.5 RDW 13.3 Plt Count 232 MPV 10.6 Neut % (Auto) 59.7 Lymph % (Auto) 29.2 [place] % (Auto) 6.4 Eos % (Auto) 4.1 H Baso % (Auto) 0.6 Neut # 3.4 Lymph # 1.7 [place] # 0.4 Eos # 0.2 Baso # 0.0 APTT D-Dimer, Quantitative Sodium 135 Potassium 3.9 Chloride 98 Carbon Dioxide 27 Anion Gap 14 BUN 17 Creatinine 0.7 L Est GFR ( Amer) > 60 Est GFR (Non-Af Amer) > 60 POC Glucose (mg/dL) Random Glucose 47 L Hemoglobin A1c 6.9 H Calcium 9.6 Total Bilirubin 1.0 AST 21 ALT 35 Alkaline Phosphatase 45 Total Creatine Kinase CK-MB (Mass) Troponin I Troponin I, Quant NT-Pro-B Natriuret Pep Total Protein 8.0 Albumin 4.1 Globulin 3.9 Albumin/Globulin Ratio 1.1 Triglycerides 55 Cholesterol 153 LDL Cholesterol Direct 94 HDL Cholesterol 60 Lipase TSH 3rd Generation 2.84 05/26/17 05/26/17 05:34 07:37 WBC RBC Hgb Hct MCV MCH MCHC RDW Plt Count MPV Neut % (Auto) Lymph % (Auto) [place] % (Auto) Eos % (Auto) Baso % (Auto) Neut # Lymph # [place] # Eos # Baso # APTT 27 D-Dimer, Quantitative Sodium Potassium Chloride Carbon Dioxide Anion Gap BUN Creatinine Est GFR ( Amer) Est GFR (Non-Af Amer) POC Glucose (mg/dL) 91 Random Glucose Hemoglobin A1c Calcium Total Bilirubin AST ALT Alkaline Phosphatase Total Creatine Kinase CK-MB (Mass) Troponin I Troponin I, Quant NT-Pro-B Natriuret Pep Total Protein Albumin Globulin Albumin/Globulin Ratio Triglycerides Cholesterol LDL Cholesterol Direct HDL Cholesterol Lipase TSH 3rd Generation Attending/Attestation - Attestation I have personally seen and examined this patient.: Yes I have fully participated in the care of the patient.: Yes I have reviewed all pertinent clinical information: Yes Notes (Text): -I agree with the above H&P completed by the resident physician with the following additions and/or changes: -The patient is a 81 year old Indonesian speaking man with a history of BPH, poorly controlled NIDDM, hyperlipidemia and HTN, who presents with acute chest pain and elevated blood glucose levels. His chest pain is intermittent, substernal, non-radiating and worsens in the supine position. The pain is unaffected exertion or oral intake and is not associated with any SOB or diaphoresis. He also denies any leg swelling, orthopnea or PND. His EKG, done in the ED, didn't show any acute ischemic findings and was essentially the same as his previous EKG on record. Of note, a 2D-echo done in March 2016 showed a normal EF and evidence of diastolic heart disease. He will be admitted to the telemetry wallace for observation in order to rule out ACS. Serial trop's and EKG' s have been ordered. Also, will order TSH, HgA1c, lipid panel. Cardiology has been consulted as well. The patient will be placed on a medium dose regular Insulin sliding scale alongside a heart healthy, consistent carbohydrate diet. His home oral hypoglycemic medication will be held. His other home meds, however , will be continued.
[2017-05-25] MEDS ORDERED: (Novolin R) Insulin Human Regular 100 units/ml vial SC ONE (22:45)
[2017-05-26 05:36] LABS: BASO % 0.6 % (0.0-2.0); EOS # 0.2 K/uL (0.0-0.7); EOS % 4.1 % (0.0-4.0); LYMPH # 1.7 K/uL (1.0-4.3); LYMPH % 29.2 % (20.0-40.0); MEAN CELL VOLUME 96.9 fL (80.0-94.0); MEAN CORPUSCULAR HEMOGLOBIN 32.5 pg (27.0-31.0); MEAN CORPUSCULAR HGB CONC 33.5 g/dL (33.0-37.0); MEAN PLATELET VOLUME 10.6 fL (7.2-11.7); MONO # 0.4 K/uL (0.0-0.8); MONO % 6.4 % (0.0-10.0); NRBC % 0.1 % (0.0-2.0); RED CELL DISTRIBUTION WIDTH 13.3 % (11.5-14.5); WHITE BLOOD COUNT 5.7 K/uL (4.8-10.8)
[2017-05-26 05:46] LABS: CHLORIDE 98 mmol/L (98-107); POTASSIUM 3.9 mmol/L (3.6-5.2); SODIUM 135 mmol/L (132-148)
[2017-05-26 05:48] LABS: ALB/GLOB RATIO 1.1 (1.0-2.1); AST/SGOT 21 U/L (17-59); BLOOD UREA NITROGEN 17 mg/dL (9-20); CARBON DIOXIDE 27 mmol/L (22-30); CHOLESTEROL 153 mg/dL (0-199); GFR AFRICAN-AMERICAN > 60
[2017-05-26 05:49] LABS: ALKALINE PHOSPHATASE 45 U/L (38-126); ALT/SGPT 35 U/L (21-72); CALCIUM 9.6 mg/dl (8.6-10.4); GLUCOSE,RANDOM 47 mg/dL (75-110)
[2017-05-26 06:19] LABS: THYROID STIMULATING HORMONE 2.84 mIU/L (0.46-4.68)
[2017-05-26] MEDS: (Novolin R) Insulin Human Regular 100 units/ml vial SC SCH ×4 (08:19→22:38)
--- NOTE | 2017-05-26 08:53 | RAD ---
PROCEDURE: CHEST RADIOGRAPH, 1 VIEW HISTORY: chest pain COMPARISON: 03/07/2016 FINDINGS: LUNGS: Moderate venous congestion. Patchy consolidative changes at the left lung base. PLEURA: As above. CARDIOVASCULAR: Cardiomegaly. Calcification at the aortic knob. Tortuous ectatic aorta. OSSEOUS STRUCTURES: Degenerative changes. VISUALIZED UPPER ABDOMEN: Normal. OTHER FINDINGS: None. IMPRESSION: Moderate venous congestion. Patchy consolidative changes at the left lung base.
--- NOTE | 2017-05-26 08:57 | CT ---
PROCEDURE: CT Chest with contrast (Pulmonary Angiogram) HISTORY: chest pain, elevated d-dimer COMPARISON: None available. TECHNIQUE: Axial computed tomography images were obtained of the chest in the pulmonary arterial phase of enhancement. Coronal and sagittal reformatted images were created and reviewed. Intravenous contrast dose: 100 mL Visipaque 320 Radiation dose: Total exam DLP = 532.83 mGy-cm. This CT exam was performed using one or more of the following dose reduction techniques: Automated exposure control, adjustment of the mA and/or kV according to patient size, and/or use of iterative reconstruction technique. FINDINGS: PULMONARY ARTERIES: Examination limited by either timing or injection rate. Suboptimal evaluation of segmental/subsegmental pulmonary artery branches. Main and lobar vessels show no filling defect. There is no gross evidence of pulmonary embolism. AORTA: No acute findings. No thoracic aortic aneurysm. LUNGS: Minimal ill-defined opacity in the right lower lobe (series 4, image [id number]). Nonspecific. Possible early pneumonia. Followup advised. No other opacity elsewhere. PLEURAL SPACES: Unremarkable. No effusion or pneuomothorax. HEART: Normal size. There is apical thinning of the left ventricular myocardium. Consider correlation with echocardiography. LYMPH NODES: No lymphadenopathy. BONES, CHEST WALL: Unremarkable. No fracture or destructive lesion OTHER FINDINGS: 1.4 cm nodule lower pole right lobe of thyroid. Recommend correlation with thyroid ultrasound examination. Small nodular calcifications in superior right lobe of liver consistent with calcified granulomas. Bilateral renal cortical cysts. Largest 4.3 cm mid right kidney. Consider correlation with ultrasound examination. No change from prior examination. IMPRESSION: Limited examination. No evidence of central pulmonary embolism. Minimal patchy opacity right lower lobe. Nonspecific. Rule out early pneumonia. Apical thinning of left ventricular myocardium. Correlate with echocardiography. Right lobe thyroid nodule. Bilateral renal cortical cysts. Recommend correlation with thyroid ultrasound examination. Consider correlation with renal ultrasound. Preliminary interpretation of this examination was reported by [employer] at 7:57 p.m. on 05/25/2017. There is concurrence of this report with the preliminary interpretation.
[2017-05-26] MEDS: NIFEdipine 60 mg ER Tab PO SCH ×2 (09:28→14:21)
[2017-05-26] MEDS: Pantoprazole 40 mg EC Tab PO SCH (09:28)
--- NOTE | 2017-05-26 11:36 | CP.PCM.PN ---
<Sherin Hughes - Last Filed: 05/26/17 13:18> Subjective - Date & Time of Evaluation Date of Evaluation: 05/26/17 Time of Evaluation: 11:36 - Subjective Subjective: Medicine Note for Dr. Garcia Patient seen and examined at bedside. Patient doing well and resting comfortably in bed with no new complaints at this time. Patient is still having some left sided chest pain that comes and goes and does not radiate. I asked if he has ever taken any medication for his cholesterol and he says he does but cannot remember the name of it and did not bring it with the rest of his medications that he brought with him to the hospital. Patient denies SOB, cough , abdominal pain, N&V, diarrhea, constipation, fever, chills, leg pain, and leg swelling. Objective - Vital Signs/Intake and Output Vital Signs (last 24 hours): Temp Pulse Resp BP Pulse Ox 98.4 F 64 13 146/64 99 05/26/17 00:00 05/26/17 08:20 05/26/17 04:00 05/26/17 09:28 05/26/17 04:00 Intake and Output: 05/26/17 05/26/17 06:59 18:59 Intake Total 550 Balance 550 - Medications Medications: Current Medications Acetaminophen (Tylenol 325mg Tab) 650 mg PO Q4 PRN PRN Reason: Pain, Mild (1-3) Aspirin (Aspirin Chewable) 81 mg PO DAILY [facility] Last Admin: 05/26/17 09:27 Dose: 81 mg Furosemide (Lasix) 20 mg PO DAILY [facility] Last Admin: 05/26/17 09:28 Dose: 20 mg Heparin Sodium (Porcine) (Heparin) 5,000 units SC Q8 [facility] Last Admin: 05/26/17 06:59 Dose: 5,000 units Insulin Human Regular (Novolin R) 0 unit SC ACHS [facility] PRN Reason: Protocol Last Admin: 05/26/17 08:19 Dose: Not Given Losartan Potassium (Cozaar) 100 mg PO DAILY [facility] Last Admin: 05/26/17 09:28 Dose: 100 mg Nifedipine (Procardia Xl) 60 mg PO DAILY [facility] Last Admin: 05/26/17 09:28 Dose: 60 mg Pantoprazole Sodium (Protonix Ec Tab) 40 mg PO DAILY [facility] Last Admin: 05/26/17 09:28 Dose: 40 mg Tamsulosin HCl (Flomax) 0.4 mg PO DAILY [facility] Last Admin: 05/26/17 09:28 Dose: 0.4 mg - Labs Labs: 05/26/17 05:34 05/26/17 05:34 APTT 27 SECONDS (21-34) 05/26/17 05:34 - Constitutional Appears: Non-toxic, No Acute Distress - Head Exam Head Exam: NORMAL INSPECTION - Eye Exam Eye Exam: EOMI, Normal appearance - ENT Exam ENT Exam: Mucous Membranes Moist - Respiratory Exam Respiratory Exam: Clear to Ausculation Bilateral, NORMAL BREATHING PATTERN. absent: Accessory Muscle Use, Rales, Rhonchi, Wheezes, Respiratory Distress - Cardiovascular Exam Cardiovascular Exam: REGULAR RHYTHM, +S1, +S2. absent: Bradycardia, Tachycardia , Murmur - GI/Abdominal Exam GI & Abdominal Exam: Soft. absent: Distended, Tenderness - Extremities Exam Extremities Exam: Normal Inspection. absent: Calf Tenderness, Pedal Edema - Neurological Exam Neurological Exam: Alert, Awake - Psychiatric Exam Psychiatric exam: Normal Affect, Normal Mood - Skin Skin Exam: Dry, Intact, Normal Color, Warm Assessment and Plan (1) Chest pain Assessment & Plan: * Admit to Tele * vitals q4 * D dimer: 485 * SHERYL negative x2, f/u 3rd Trop * Cardiology Consult: Dr. Stefan garcia appreciated * Aspirin 81mg daily * Tylenol PRN for pain * Lipid panel: Trig 55, Chol 153, LDL 94, HDL 60 * TSH: 2.84 * CT Chest: Limited examination. No evidence of central pulmonary embolism. Minimal patchy opacity right lower lobe. Nonspecific. Rule out early pneumonia. Apical thinning of left ventricular myocardium. Correlate with echocardiography. Right lobe thyroid nodule. Bilateral renal cortical cysts. Recommend correlation with thyroid ultrasound examination. Consider correlation with renal ultrasound. * Zithromax * Ceftriaxone * f/u echocardiogram * Consider outpatient US of thyroid Status: Acute (2) Diabetes Assessment & Plan: * ISS * Home med per Pharmacy: Humalin 70/30 25 U QD * Accuchecks * HbA1c: 6.9 Status: Chronic (3) Hypertension Assessment & Plan: * Losartan 100mg daily * Nifedipine ER 60mg daily * Furosemide 20mg daily Status: Chronic (4) Hyperlipidemia Assessment & Plan: * Lipid panel as above * Simvastatin 20 mg QD (home med) Status: Acute (5) BPH (benign prostatic hyperplasia) Assessment & Plan: Tamsulosin daily (home med) Status: Chronic (6) Prophylactic measure Assessment & Plan: Protonix Heparin SC 5,000 QD Status: Acute <Raymond Garciafloreslitzy - Last Filed: 05/26/17 13:53> Objective - Vital Signs/Intake and Output Vital Signs (last 24 hours): Temp Pulse Resp BP Pulse Ox 98.4 F 64 13 146/64 99 05/26/17 00:00 05/26/17 08:20 05/26/17 04:00 05/26/17 09:28 05/26/17 04:00 Intake and Output: 05/26/17 05/26/17 06:59 18:59 Intake Total 550 Balance 550 - Medications Medications: Current Medications Acetaminophen (Tylenol 325mg Tab) 650 mg PO Q4 PRN PRN Reason: Pain, Mild (1-3) Aspirin (Aspirin Chewable) 81 mg PO DAILY [facility] Last Admin: 05/26/17 09:27 Dose: 81 mg Furosemide (Lasix) 20 mg PO DAILY [facility] Last Admin: 05/26/17 09:28 Dose: 20 mg Heparin Sodium (Porcine) (Heparin) 5,000 units SC Q8 [facility] Last Admin: 05/26/17 06:59 Dose: 5,000 units Ceftriaxone Sodium 1 gm/ (Sodium Chloride) 100 mls @ 100 mls/hr IVPB DAILY [facility] Azithromycin (Zithromax 500mg In Ns Addvantage) 500 mg in 250 mls @ 167 mls/hr IVPB Q24H [facility] Insulin Human Regular (Novolin R) 0 unit SC ACHS [facility] PRN Reason: Protocol Last Admin: 05/26/17 08:19 Dose: Not Given Losartan Potassium (Cozaar) 100 mg PO DAILY [facility] Last Admin: 05/26/17 09:28 Dose: 100 mg Nifedipine (Procardia Xl) 60 mg PO DAILY [facility] Last Admin: 05/26/17 09:28 Dose: 60 mg Pantoprazole Sodium (Protonix Ec Tab) 40 mg PO DAILY [facility] Last Admin: 05/26/17 09:28 Dose: 40 mg Rosuvastatin Calcium (Crestor) 2.5 mg PO HS [facility] Tamsulosin HCl (Flomax) 0.4 mg PO DAILY [facility] Last Admin: 05/26/17 09:28 Dose: 0.4 mg - Labs Labs: 05/26/17 05:34 05/26/17 05:34 APTT 27 SECONDS (21-34) 05/26/17 05:34 Attending/Attestation - Attestation I have personally seen and examined this patient.: Yes I have fully participated in the care of the patient.: Yes I have reviewed all pertinent clinical information, including history, physical exam and plan: Yes Notes (Text): 05/26/17 13:42 This is a 81years old pleasant male with history of HTN,DM,hyperlipidemia and BPH is here for evaluation of chest pain.On admission his troponin negative,EKG with no ischemic changes.D dimer high,CTA negative for PE.Chest xray possible LLL pneumonia.Denies fever,no cough,s/p SOB once at home.On examination LLL rales Patient was seen and examined.Discussed with the resident and RN. Agrees with the residents documentation. 1.Chest pain and SOB follow Echo and 3rd troponin 2.Pneumonia-ceftriaxone and zithromax Repeat chest x ray as an out in 3 weeks 3.HTN-continue home meds 4.DM-continue home meds 5.BPH 6.DVT and GI prophylaxis 7.Thyroid nodule-Out pt US
[2017-05-26] MEDS ORDERED: Azithromycin 500mg/250ML NS 500 MG/250 ML BAG IVPB SCH ×2 (13:00→15:00)
[2017-05-26] MEDS: Azithromycin 500 MG in Sodium Chloride 0.9% 250 ML IVPB SCH (16:22)
--- NOTE | 2017-05-26 16:28 | US ---
Thyroid ultrasound History: Nodule. Comparison: None available. Technique: Real-time sonography was performed through the thyroid. Findings: Right lobe: 5.4 x 2.3 x 1.9 centimeters. Heterogeneous echotexture. Normal flow. In the lower pole of the right lobe of the thyroid, there is a hypoechoic cystic nodule measuring 1.4 x 1.5 x 1.4 centimeters with associated internal thickened septations and peripheral nodularity. Thyroid isthmus measures 2.2 millimeters. Heterogeneous echotexture. Normal flow. Left lobe: 5.1 x 2.0 x 1.8 centimeters. Heterogeneous echotexture. Normal flow. Impression: Complex cystic nodule in the lower pole of the right lobe of the thyroid measuring up to 1.5 centimeters.
[2017-05-26 19:27] LABS: PHOSPHOROUS 3.3 mg/dL (2.5-4.5)
[2017-05-26 19:28] LABS: MAGNESIUM 1.5 mg/dL (1.6-2.3)
--- NOTE | 2017-05-26 21:50 | CP.PCM.CON ---
History of Present Illness - History of Present Illness History of Present Illness: Patient seen and evaluated Admitted with chest pain Troponins are negative For stress test and ECHO in am Past Patient History - Past Medical History & Family History Past Medical History?: Yes - Past Social History Smoking Status: Former Smoker - CARDIAC Hx Cardiac Disorders: Yes Hx Cardia Arrhythmia: Yes Hx Hypercholesterolemia: Yes Hx Hypertension: Yes Hx Peripheral Edema: Yes - PULMONARY Hx Respiratory Disorders: No - NEUROLOGICAL Hx Neurological Disorder: No - HEENT Hx HEENT Problems: No - RENAL Hx Chronic Kidney Disease: No - ENDOCRINE/METABOLIC Hx Endocrine Disorders: Yes Hx Diabetes Mellitus Type 2: Yes - HEMATOLOGICAL/ONCOLOGICAL Hx Blood Disorders: No - INTEGUMENTARY Hx Dermatological Problems: No - MUSCULOSKELETAL/RHEUMATOLOGICAL Hx Musculoskeletal Disorders: No Hx Falls: No - GASTROINTESTINAL Hx Gastrointestinal Disorders: No - GENITOURINARY/GYNECOLOGICAL Hx Genitourinary Disorders: Yes Hx Prostate Problems: Yes - PSYCHIATRIC Hx Substance Use: No - SURGICAL HISTORY Hx Surgeries: Yes Hx Orthopedic Surgery: Yes (left ankle) Other/Comment: Lt. lower leg surgery - ANESTHESIA Hx Anesthesia: Yes Hx Anesthesia Reactions: No Hx Malignant Hyperthermia: No Meds Allergies/Adverse Reactions: Allergies Allergy/AdvReac Type Severity Reaction Status Date / Time No Known Allergies Allergy Verified 05/25/17 17:17 - Medications Medications: Current Medications Acetaminophen (Tylenol 325mg Tab) 650 mg PO Q4 PRN PRN Reason: Pain, Mild (1-3) Aspirin (Aspirin Chewable) 81 mg PO DAILY [facility] Last Admin: 05/26/17 09:27 Dose: 81 mg Furosemide (Lasix) 20 mg PO DAILY [facility] Last Admin: 05/26/17 09:28 Dose: 20 mg Heparin Sodium (Porcine) (Heparin) 5,000 units SC Q8 [facility] Last Admin: 05/26/17 14:24 Dose: 5,000 units Ceftriaxone Sodium 1 gm/ (Sodium Chloride) 100 mls @ 100 mls/hr IVPB Q24H [facility] Last Admin: 05/26/17 15:19 Dose: 100 mls/hr Azithromycin 500 mg/ Sodium (Chloride) 250 mls @ 167 mls/hr IVPB Q24H [facility] Last Admin: 05/26/17 16:22 Dose: 167 mls/hr Insulin Human Regular (Novolin R) 0 unit SC ACHS [facility] PRN Reason: Protocol Last Admin: 05/26/17 17:21 Dose: 4 unit Losartan Potassium (Cozaar) 100 mg PO DAILY [facility] Last Admin: 05/26/17 09:28 Dose: 100 mg Nifedipine (Procardia Xl) 60 mg PO DAILY [facility] Last Admin: 05/26/17 14:21 Dose: Not Given Pantoprazole Sodium (Protonix Ec Tab) 40 mg PO DAILY [facility] Last Admin: 05/26/17 09:28 Dose: 40 mg Rosuvastatin Calcium (Crestor) 2.5 mg PO [facility] Tamsulosin HCl (Flomax) 0.4 mg PO DAILY [facility] Last Admin: 05/26/17 09:28 Dose: 0.4 mg Results - Vital Signs Recent Vital Signs: Last Vital Signs Temp 98.1 F 05/26/17 20:00 Pulse 54 L 05/26/17 19:22 Resp 14 05/26/17 19:22 BP 120/49 L 05/26/17 19:22 Pulse Ox 99 05/26/17 19:22 - Labs Result Diagrams: 05/26/17 05:34 05/26/17 05:34 Labs: Laboratory Results - last 24 hr 05/25/17 05/26/17 05/26/17 23:19 04:27 05:34 WBC 5.7 RBC 3.82 L Hgb 12.4 Hct 37.0 MCV 96.9 H MCH 32.5 H MCHC 33.5 RDW 13.3 Plt Count 232 MPV 10.6 Neut % (Auto) 59.7 Lymph % (Auto) 29.2 [place] % (Auto) 6.4 Eos % (Auto) 4.1 H Baso % (Auto) 0.6 Neut # 3.4 Lymph # 1.7 [place] # 0.4 Eos # 0.2 Baso # 0.0 APTT Sodium Potassium Chloride Carbon Dioxide Anion Gap BUN Creatinine Est GFR ( Amer) Est GFR (Non-Af Amer) POC Glucose (mg/dL) 76 Random Glucose Hemoglobin A1c Calcium Phosphorus Magnesium Total Bilirubin AST ALT Alkaline Phosphatase Total Creatine Kinase 43 L CK-MB (Mass) 0.77 Troponin I, Quant 0.0150 Total Protein Albumin Globulin Albumin/Globulin Ratio Triglycerides Cholesterol LDL Cholesterol Direct HDL Cholesterol TSH 3rd Generation 05/26/17 05/26/17 05/26/17 05:34 05:34 05:34 WBC RBC Hgb Hct MCV MCH MCHC RDW Plt Count MPV Neut % (Auto) Lymph % (Auto) [place] % (Auto) Eos % (Auto) Baso % (Auto) Neut # Lymph # [place] # Eos # Baso # APTT 27 Sodium 135 Potassium 3.9 Chloride 98 Carbon Dioxide 27 Anion Gap 14 BUN 17 Creatinine 0.7 L Est GFR ( Amer) > 60 Est GFR (Non-Af Amer) > 60 POC Glucose (mg/dL) Random Glucose 47 L Hemoglobin A1c 6.9 H Calcium 9.6 Phosphorus Magnesium Total Bilirubin 1.0 AST 21 ALT 35 Alkaline Phosphatase 45 Total Creatine Kinase CK-MB (Mass) Troponin I, Quant Total Protein 8.0 Albumin 4.1 Globulin 3.9 Albumin/Globulin Ratio 1.1 Triglycerides 55 Cholesterol 153 LDL Cholesterol Direct 94 HDL Cholesterol 60 TSH 3rd Generation 2.84 05/26/17 05/26/17 05/26/17 07:37 11:44 14:46 WBC RBC Hgb Hct MCV MCH MCHC RDW Plt Count MPV Neut % (Auto) Lymph % (Auto) [place] % (Auto) Eos % (Auto) Baso % (Auto) Neut # Lymph # [place] # Eos # Baso # APTT Sodium Potassium Chloride Carbon Dioxide Anion Gap BUN Creatinine Est GFR ( Amer) Est GFR (Non-Af Amer) POC Glucose (mg/dL) 91 188 H Random Glucose Hemoglobin A1c Calcium Phosphorus 3.3 Magnesium 1.5 L Total Bilirubin AST ALT Alkaline Phosphatase Total Creatine Kinase 48 L CK-MB (Mass) 0.79 Troponin I, Quant < 0.0120 Total Protein Albumin Globulin Albumin/Globulin Ratio Triglycerides Cholesterol LDL Cholesterol Direct HDL Cholesterol TSH 3rd Generation 05/26/17 05/26/17 16:12 21:21 WBC RBC Hgb Hct MCV MCH MCHC RDW Plt Count MPV Neut % (Auto) Lymph % (Auto) [place] % (Auto) Eos % (Auto) Baso % (Auto) Neut # Lymph # [place] # Eos # Baso # APTT Sodium Potassium Chloride Carbon Dioxide Anion Gap BUN Creatinine Est GFR ( Amer) Est GFR (Non-Af Amer) POC Glucose (mg/dL) 254 H 278 H Random Glucose Hemoglobin A1c Calcium Phosphorus Magnesium Total Bilirubin AST ALT Alkaline Phosphatase Total Creatine Kinase CK-MB (Mass) Troponin I, Quant Total Protein Albumin Globulin Albumin/Globulin Ratio Triglycerides Cholesterol LDL Cholesterol Direct HDL Cholesterol TSH 3rd Generation
[2017-05-26] MEDS: Rosuvastatin Calcium 2.5 mg Tab PO SCH (22:37)
--- NOTE | 2017-05-26 23:23 | CARD ---
APPROVED REPORT EXAM: Two-dimensional and M-mode echocardiogram with Doppler and color Doppler. Other Information Quality : GoodRhythm : NSR INDICATION Chest Pain RISK FACTORS Hypertension Hyperlipidemia M-Mode DIMENSIONS RVDd1.72 (2.1-3.2cm)Left Atrium (MM)4.30 (2.5-4.0cm) IVSd1.17 (0.7-1.1cm)Aortic Root2.97 (2.2-3.7cm) LVDd5.78 (4.0-5.6cm)Aortic Cusp Exc.1.91 (1.5-2.0cm) PWd1.37 (0.7-1.1cm)FS (%) 33 % LVDs3.87 (2.0-3.8cm)LVEF (%)61 (>50%) Aortic Valve AoV Peak Jpldvvoi582.0cm/Jordi Peak GR.9mmHg Mitral Valve MV E Yenewwbj64.4cm/sMV A Rxejfhfu51.7cm/sE/A ratio0.6 TDI E/Lateral E'0.0E/Medial E'0.0 Tricuspid Valve TR Peak [id number]/sTR Peak Gr.[id number] LEFT VENTRICLE The Left Ventricle is mildly dilated. There is mild concentric left ventricular hypertrophy. Left ventricle systolic function is normal. The Ejection Fraction is 60-65%. There is normal LV segmental wall motion. Tissue Doppler imaging reveals abnormal left ventricular diastolic dysfunction. No left ventricle thrombus noted on this study. RIGHT VENTRICLE The right ventricle is normal size. There is normal right ventricular wall thickness. The right ventricular systolic function is normal. ATRIA The left atrium is mildly dilated. The right atrium size is normal. The interatrial septum is intact with no evidence for an atrial septal defect. AORTIC VALVE The aortic valve is mildly sclerotic and calcified. No aortic regurgitation is present. There is no aortic valvular stenosis. Cannot exclude aortic valvular vegetation. Suggest ADRIANNE if strongly suspected. Please correlate clinically. MITRAL VALVE The mitral valve is normal in structure. There is no evidence of mitral valve prolapse. There is no mitral valve stenosis. Mitral regurgitation is mild. TRICUSPID VALVE The tricuspid valve is normal in structure. There is trace to mild tricuspid regurgitation. Right ventricular systolic pressure is estimated at less than 30 mmHg. There is no pulmonary hypertension. PULMONIC VALVE The pulmonic valve is not well visualized. There is no pulmonic valvular regurgitation. GREAT VESSELS The aortic root is normal in size. PERICARDIAL EFFUSION There is no significant pericardial effusion. <Conclusion> Left ventricle systolic function is normal. The Ejection Fraction is 60-65%. Hypertensive heart disease. Diastolic dysfunction. No aortic regurgitation is present. Cannot exclude aortic valvular vegetation. Suggest ADRIANNE if strongly suspected. Please correlate clinically. Mitral regurgitation is mild. There is trace to mild tricuspid regurgitation. There is no pulmonary hypertension. There is no pulmonic valvular regurgitation.
[2017-05-27] MEDS ORDERED: Magnesium Sulfate 1 gm in D5W 1 GM/100 ML BAG IVPB ONE (00:02)
[2017-05-27 06:20] LABS: BASO % 0.4 % (0.0-2.0); EOS # 0.2 K/uL (0.0-0.7); EOS % 3.7 % (0.0-4.0); LYMPH # 1.4 K/uL (1.0-4.3); LYMPH % 21.9 % (20.0-40.0); MEAN CELL VOLUME 97.3 fL (80.0-94.0); MEAN CORPUSCULAR HEMOGLOBIN 32.5 pg (27.0-31.0); MEAN CORPUSCULAR HGB CONC 33.5 g/dL (33.0-37.0); MEAN PLATELET VOLUME 10.3 fL (7.2-11.7); MONO # 0.4 K/uL (0.0-0.8); MONO % 6.8 % (0.0-10.0); NRBC % 0.1 % (0.0-2.0); RED CELL DISTRIBUTION WIDTH 13.1 % (11.5-14.5); WHITE BLOOD COUNT 6.3 K/uL (4.8-10.8)
[2017-05-27 06:37] LABS: CHLORIDE 95 mmol/L (98-107); SODIUM 129 mmol/L (132-148)
[2017-05-27 06:39] LABS: AST/SGOT 20 U/L (17-59); BILIRUBIN,TOTAL 0.8 mg/dL (0.2-1.3); CARBON DIOXIDE 27 mmol/L (22-30); GFR AFRICAN-AMERICAN > 60
[2017-05-27 06:40] LABS: ALKALINE PHOSPHATASE 48 U/L (38-126); ALT/SGPT 33 U/L (21-72); BLOOD UREA NITROGEN 27 mg/dL (9-20); CALCIUM 8.9 mg/dl (8.6-10.4); GLUCOSE,RANDOM 329 mg/dL (75-110); MAGNESIUM 2.3 mg/dL (1.6-2.3); PHOSPHOROUS 3.9 mg/dL (2.5-4.5); TOTAL PROTEIN 7.2 g/dL (6.3-8.3)
[2017-05-27] MEDS ORDERED: Aminophylline 25 mg/ml Inj ONE ×2 (07:15→07:35)
[2017-05-27] MEDS: (Novolin R) Insulin Human Regular 100 units/ml vial SC SCH ×4 (07:30→21:23)
--- NOTE | 2017-05-27 07:40 | CP.PCM.PN ---
<Sherin Hughes - Last Filed: 05/27/17 12:58> Subjective - Date & Time of Evaluation Date of Evaluation: 05/27/17 Time of Evaluation: 07:36 - Subjective Subjective: Medicine note for Dr. Garcia Patient seen and examined at bedside. Patient resting comfortably in bed with no new complaints at this time. Patient is still having some mild left sided chest pain that he says is worse when he moves his left arm and shoulder. Patient says he had a headache but it is now gone. He denies fever, chills, SOB , abdominal pain, N&V, diarrhea, constipation, leg pain, and leg swelling. Objective - Vital Signs/Intake and Output Vital Signs (last 24 hours): Temp Pulse Resp BP Pulse Ox 98.1 F 46 L 14 100/45 L 98 05/26/17 20:00 05/27/17 06:22 05/27/17 06:22 05/27/17 06:22 05/27/17 06:22 Intake and Output: 05/27/17 05/27/17 06:59 18:59 Intake Total 700 Output Total 1050 Balance -350 - Medications Medications: Current Medications Acetaminophen (Tylenol 325mg Tab) 650 mg PO Q4 PRN PRN Reason: Pain, Mild (1-3) Aspirin (Aspirin Chewable) 81 mg PO DAILY [facility] Last Admin: 05/26/17 09:27 Dose: 81 mg Furosemide (Lasix) 20 mg PO DAILY [facility] Last Admin: 05/26/17 09:28 Dose: 20 mg Heparin Sodium (Porcine) (Heparin) 5,000 units SC Q8 [facility] Last Admin: 05/27/17 06:39 Dose: 5,000 units Ceftriaxone Sodium 1 gm/ (Sodium Chloride) 100 mls @ 100 mls/hr IVPB Q24H [facility] Last Admin: 05/26/17 15:19 Dose: 100 mls/hr Azithromycin 500 mg/ Sodium (Chloride) 250 mls @ 167 mls/hr IVPB Q24H [facility] Last Admin: 05/26/17 16:22 Dose: 167 mls/hr Insulin Human Regular (Novolin R) 0 unit SC ACHS [facility] PRN Reason: Protocol Last Admin: 05/26/17 22:38 Dose: Not Given Losartan Potassium (Cozaar) 100 mg PO DAILY [facility] Last Admin: 10/23/17 09:28 Dose: 100 mg Nifedipine (Procardia Xl) 60 mg PO DAILY [facility] Last Admin: 05/26/17 14:21 Dose: Not Given Pantoprazole Sodium (Protonix Ec Tab) 40 mg PO DAILY [facility] Last Admin: 05/26/17 09:28 Dose: 40 mg Rosuvastatin Calcium (Crestor) 2.5 mg PO HS [facility] Last Admin: 05/26/17 22:37 Dose: 2.5 mg Tamsulosin HCl (Flomax) 0.4 mg PO DAILY [facility] Last Admin: 05/26/17 09:28 Dose: 0.4 mg - Labs Labs: 05/27/17 06:14 05/27/17 06:10 APTT 27 SECONDS (21-34) 05/26/17 05:34 - Constitutional Appears: Non-toxic, No Acute Distress - Head Exam Head Exam: NORMAL INSPECTION - Eye Exam Eye Exam: EOMI, Normal appearance - ENT Exam ENT Exam: Mucous Membranes Moist - Respiratory Exam Respiratory Exam: Clear to Ausculation Bilateral, NORMAL BREATHING PATTERN. absent: Accessory Muscle Use, Rales, Rhonchi, Wheezes, Respiratory Distress - Cardiovascular Exam Cardiovascular Exam: Bradycardia, REGULAR RHYTHM, +S1, +S2. absent: Tachycardia , Murmur - GI/Abdominal Exam GI & Abdominal Exam: Soft. absent: Distended, Tenderness - Extremities Exam Extremities Exam: Normal Inspection. absent: Calf Tenderness, Pedal Edema - Neurological Exam Neurological Exam: Alert, Awake - Psychiatric Exam Psychiatric exam: Normal Affect, Normal Mood - Skin Skin Exam: Dry, Intact, Normal Color, Warm Assessment and Plan (1) Chest pain Assessment & Plan: * vitals q4 * D dimer: 485 * SHERYL negative x3 * Cardiology Consult: Dr. Stefan garcia appreciated * f/u echocardiogram and stress test * Aspirin 81mg daily * Tylenol PRN for pain * Lipid panel: Trig 55, Chol 153, LDL 94, HDL 60 * TSH: 2.84 * CT Chest: Limited examination. No evidence of central pulmonary embolism. Minimal patchy opacity right lower lobe. Nonspecific. Rule out early pneumonia. Apical thinning of left ventricular myocardium. Correlate with echocardiography. Right lobe thyroid nodule. Bilateral renal cortical cysts. Recommend correlation with thyroid ultrasound examination. Consider correlation with renal ultrasound. * Zithromax * Ceftriaxone * US of thyroid: Complex cystic nodule of the lower pole of the right lobe measuring 1.5 cm Status: Acute (2) Cystic thyroid nodule Assessment & Plan: * 1.5 cm complex cystic nodule of lower pole of the right lobe of thyroid as described above * f/u FNA biopsy Status: Acute (3) Diabetes Assessment & Plan: * ISS * Home med per Pharmacy: Humalin 70/30 25 U QD * Accuchecks * HbA1c: 6.9 Status: Chronic (4) Hypertension Assessment & Plan: * Losartan 100mg daily * Nifedipine ER 60mg daily * Furosemide 20mg daily Status: Chronic (5) Hyperlipidemia Assessment & Plan: * Lipid panel as above * Simvastatin 20 mg QD (home med) Status: Acute (6) BPH (benign prostatic hyperplasia) Assessment & Plan: * Tamsulosin daily (home med) Status: Chronic (7) Prophylactic measure Assessment & Plan: * Protonix * Heparin SC 5,000 QD Status: Acute <Wilfrido Garcia - Last Filed: 05/27/17 14:21> Objective - Vital Signs/Intake and Output Vital Signs (last 24 hours): Temp Pulse Resp BP Pulse Ox 98.1 F 46 L 12 145/54 L 99 05/26/17 20:00 05/27/17 12:34 05/27/17 12:07 05/27/17 12:07 05/27/17 12:07 Intake and Output: 05/27/17 05/27/17 06:59 18:59 Intake Total 700 Output Total 1050 Balance -350 - Medications Medications: Current Medications Acetaminophen (Tylenol 325mg Tab) 650 mg PO Q4 PRN PRN Reason: Pain, Mild (1-3) Aspirin (Aspirin Chewable) 81 mg PO DAILY [facility] Last Admin: 05/27/17 10:10 Dose: 81 mg Furosemide (Lasix) 20 mg PO DAILY [facility] Last Admin: 05/27/17 10:10 Dose: 20 mg Heparin Sodium (Porcine) (Heparin) 5,000 units SC Q8 [facility] Last Admin: 05/27/17 13:29 Dose: 5,000 units Ceftriaxone Sodium 1 gm/ (Sodium Chloride) 100 mls @ 100 mls/hr IVPB Q24H [facility] Last Admin: 05/26/17 15:19 Dose: 100 mls/hr Azithromycin 500 mg/ Sodium (Chloride) 250 mls @ 167 mls/hr IVPB Q24H [facility] Last Admin: 10/23/17 16:22 Dose: 167 mls/hr Insulin Human Regular (Novolin R) 0 unit SC ACHS [facility] PRN Reason: Protocol Last Admin: 05/27/17 13:29 Dose: 6 unit Losartan Potassium (Cozaar) 100 mg PO DAILY [facility] Last Admin: 05/27/17 10:14 Dose: Not Given Nifedipine (Procardia Xl) 60 mg PO DAILY [facility] Last Admin: 05/27/17 10:14 Dose: Not Given Pantoprazole Sodium (Protonix Ec Tab) 40 mg PO DAILY [facility] Last Admin: 05/27/17 10:10 Dose: 40 mg Rosuvastatin Calcium (Crestor) 2.5 mg PO HS [facility] Last Admin: 05/26/17 22:37 Dose: 2.5 mg Tamsulosin HCl (Flomax) 0.4 mg PO DAILY [facility] Last Admin: 05/27/17 10:10 Dose: 0.4 mg - Labs Labs: 05/27/17 06:14 05/27/17 06:10 APTT 27 SECONDS (21-34) 05/26/17 05:34 Attending/Attestation - Attestation I have personally seen and examined this patient.: Yes I have fully participated in the care of the patient.: Yes I have reviewed all pertinent clinical information, including history, physical exam and plan: Yes Notes (Text): This is a 81years old pleasant male with history of HTN,DM,hyperlipidemia and BPH is here for evaluation of chest pain.On admission his troponin negative,EKG with no ischemic changes.D dimer high,CTA negative for PE.Chest xray possible LLL pneumonia.Denies fever,no cough,s/p SOB once at home.On examination LLL rales Patient was seen and examined this afternoon with his RN No complain,no chest pain .Discussed with the resident Agrees with the residents documentation. 1.Chest pain and SOB follow Echo and stress test report 2.Pneumonia-ceftriaxone and zithromax Repeat chest x ray as an out in 3 weeks 3.HTN-continue home meds 4.DM-continue home meds 5.BPH 6.DVT and GI prophylaxis 7.Thyroid nodule-US done shows 1.5cm nodule request US guided biopsy 8.Asymptomatic bradycardia not on beta blockers,normal TSH The plan was explained to the patient in [place] by RN
[2017-05-27] MEDS: Pantoprazole 40 mg EC Tab PO SCH (10:10)
[2017-05-27] MEDS: NIFEdipine 60 mg ER Tab PO SCH (10:14)
[2017-05-27] MEDS: Azithromycin 500 MG in Sodium Chloride 0.9% 250 ML IVPB SCH (14:42)
--- NOTE | 2017-05-27 16:35 | CP.PCM.PN ---
<Sherin Albrecht DO - Last Filed: 05/27/17 16:27> Subjective - Date & Time of Evaluation Date of Evaluation: 05/27/17 Time of Evaluation: 08:10 - Subjective Subjective: Cardiology progress note for Dr. Aviles Patient seen and examined in nuclear stress lab. Patient asymptomatic this morning and denies chest pain or dyspnea. Patient tolerated lexiscan nuclear stress test well. Objective - Vital Signs/Intake and Output Vital Signs (last 24 hours): Temp Pulse Resp BP Pulse Ox 98.1 F 55 L 12 145/54 L 99 05/26/17 20:00 05/27/17 15:25 05/27/17 12:07 05/27/17 12:07 05/27/17 12:07 Intake and Output: 05/27/17 05/27/17 06:59 18:59 Intake Total 990 Output Total 2700 Balance -1710 - Medications Medications: Current Medications Acetaminophen (Tylenol 325mg Tab) 650 mg PO Q4 PRN PRN Reason: Pain, Mild (1-3) Aspirin (Aspirin Chewable) 81 mg PO DAILY [facility] Last Admin: 05/27/17 10:10 Dose: 81 mg Furosemide (Lasix) 20 mg PO DAILY [facility] Last Admin: 05/27/17 10:10 Dose: 20 mg Heparin Sodium (Porcine) (Heparin) 5,000 units SC Q8 [facility] Last Admin: 05/27/17 13:29 Dose: 5,000 units Ceftriaxone Sodium 1 gm/ (Sodium Chloride) 100 mls @ 100 mls/hr IVPB Q24H [facility] Last Admin: 05/26/17 15:19 Dose: 100 mls/hr Azithromycin 500 mg/ Sodium (Chloride) 250 mls @ 167 mls/hr IVPB Q24H [facility] Last Admin: 05/27/17 14:42 Dose: 167 mls/hr Insulin Human Regular (Novolin R) 0 unit SC ACHS [facility] PRN Reason: Protocol Last Admin: 05/27/17 13:29 Dose: 6 unit Losartan Potassium (Cozaar) 100 mg PO DAILY [facility] Last Admin: 05/27/17 10:14 Dose: Not Given Nifedipine (Procardia Xl) 60 mg PO DAILY [facility] Last Admin: 05/27/17 10:14 Dose: Not Given Pantoprazole Sodium (Protonix Ec Tab) 40 mg PO DAILY [facility] Last Admin: 05/27/17 10:10 Dose: 40 mg Rosuvastatin Calcium (Crestor) 2.5 mg PO HS [facility] Last Admin: 05/26/17 22:37 Dose: 2.5 mg Tamsulosin HCl (Flomax) 0.4 mg PO DAILY [facility] Last Admin: 05/27/17 10:10 Dose: 0.4 mg - Labs Labs: 05/27/17 06:14 05/27/17 06:10 APTT 27 SECONDS (21-34) 05/26/17 05:34 - Constitutional Appears: Non-toxic, No Acute Distress - Head Exam Head Exam: ATRAUMATIC, NORMOCEPHALIC - Eye Exam Eye Exam: EOMI - ENT Exam ENT Exam: Mucous Membranes Moist - Respiratory Exam Respiratory Exam: Clear to Ausculation Bilateral, NORMAL BREATHING PATTERN. absent: Wheezes - Cardiovascular Exam Cardiovascular Exam: +S1, +S2 - GI/Abdominal Exam GI & Abdominal Exam: Soft, Normal Bowel Sounds. absent: Tenderness - Extremities Exam Extremities Exam: Normal Inspection. absent: Pedal Edema - Neurological Exam Neurological Exam: Alert, Awake - Psychiatric Exam Psychiatric exam: Normal Affect - Skin Skin Exam: Normal Color, Warm Assessment and Plan - Assessment and Plan (Free Text) Assessment: 81 year old male with PMHx DM, HTN, HLD admitted for chest pain. Chest pain, r/o ACS troponin negative x 3 nuclear stress test noted to show borderline positive inferior ischemia recommend cath tomorrow AM due to combination of bradycardia and stress test results, will put patient NPO past MN except for medications Asymptomatic bradycardia continue losartan and procardia patient is not on Beta blockers heart rate noted to have gone down to 42 during hospitalization will continue to monitor, patient may benefit from further monitoring or PPM TSH noted to be in normal range Diastolic dysfunction EF 60-65% diastolic dysfunction no aortic regurg mild mitral regurg trace to mild tricuspid regurg no pulm HTN or pulmonic valvular regurgitation Plan as per Dr. Aviles <Po Aviles - Last Filed: 05/27/17 23:18> Objective - Vital Signs/Intake and Output Vital Signs (last 24 hours): Temp Pulse Resp BP Pulse Ox 98.3 F 46 L 19 138/53 L 96 05/27/17 20:00 05/27/17 20:00 05/27/17 18:06 05/27/17 18:06 05/27/17 18:06 Intake and Output: 05/27/17 05/28/17 18:59 06:59 Intake Total 990 Output Total 2700 Balance -1710 - Medications Medications: Current Medications Acetaminophen (Tylenol 325mg Tab) 650 mg PO Q4 PRN PRN Reason: Pain, Mild (1-3) Aspirin (Aspirin Chewable) 81 mg PO DAILY [facility] Last Admin: 05/27/17 10:10 Dose: 81 mg Furosemide (Lasix) 20 mg PO DAILY [facility] Last Admin: 05/27/17 10:10 Dose: 20 mg Heparin Sodium (Porcine) (Heparin) 5,000 units SC Q8 [facility] Last Admin: 05/27/17 21:19 Dose: 5,000 units Ceftriaxone Sodium 1 gm/ (Sodium Chloride) 100 mls @ 100 mls/hr IVPB Q24H [facility] Last Admin: 05/27/17 16:44 Dose: 100 mls/hr Azithromycin 500 mg/ Sodium (Chloride) 250 mls @ 167 mls/hr IVPB Q24H [facility] Last Admin: 05/27/17 14:42 Dose: 167 mls/hr Insulin Human Regular (Novolin R) 0 unit SC ACHS [facility] PRN Reason: Protocol Last Admin: 05/27/17 21:23 Dose: Not Given Losartan Potassium (Cozaar) 100 mg PO DAILY [facility] Last Admin: 05/27/17 10:14 Dose: Not Given Nifedipine (Procardia Xl) 60 mg PO DAILY [facility] Last Admin: 05/27/17 10:14 Dose: Not Given Pantoprazole Sodium (Protonix Ec Tab) 40 mg PO DAILY [facility] Last Admin: 05/27/17 10:10 Dose: 40 mg Rosuvastatin Calcium (Crestor) 2.5 mg PO HS [facility] Last Admin: 05/27/17 21:19 Dose: 2.5 mg Tamsulosin HCl (Flomax) 0.4 mg PO DAILY [facility] Last Admin: 05/27/17 10:10 Dose: 0.4 mg - Labs Labs: 05/27/17 06:14 05/27/17 06:10 APTT 27 SECONDS (21-34) 05/26/17 05:34 Assessment and Plan - Assessment and Plan (Free Text) Assessment: Patient seen and evaluated with the medical office asst Plan of care as documented
[2017-05-27] MEDS: Rosuvastatin Calcium 2.5 mg Tab PO SCH (21:19)
[2017-05-28 06:28] LABS: BASO % 0.6 % (0.0-2.0); EOS # 0.2 K/uL (0.0-0.7); LYMPH # 1.2 K/uL (1.0-4.3); LYMPH % 20.9 % (20.0-40.0); MEAN CELL VOLUME 97.6 fL (80.0-94.0); MEAN CORPUSCULAR HEMOGLOBIN 32.7 pg (27.0-31.0); MEAN CORPUSCULAR HGB CONC 33.5 g/dL (33.0-37.0); MEAN PLATELET VOLUME 10.2 fL (7.2-11.7); MONO # 0.4 K/uL (0.0-0.8); NRBC % 0.1 % (0.0-2.0); WHITE BLOOD COUNT 5.5 K/uL (4.8-10.8)
[2017-05-28 06:38] LABS: CHLORIDE 96 mmol/L (98-107); POTASSIUM 4.9 mmol/L (3.6-5.2); SODIUM 133 mmol/L (132-148)
[2017-05-28 06:40] LABS: GFR AFRICAN-AMERICAN > 60
[2017-05-28 06:41] LABS: ALKALINE PHOSPHATASE 52 U/L (38-126); ALT/SGPT 38 U/L (21-72); AST/SGOT 17 U/L (17-59); BILIRUBIN,TOTAL 0.9 mg/dL (0.2-1.3); BLOOD UREA NITROGEN 24 mg/dL (9-20); CARBON DIOXIDE 26 mmol/L (22-30); GLUCOSE,RANDOM 281 mg/dL (75-110); PHOSPHOROUS 3.3 mg/dL (2.5-4.5); TOTAL PROTEIN 7.4 g/dL (6.3-8.3)
[2017-05-28 06:42] LABS: MAGNESIUM 1.7 mg/dL (1.6-2.3)
[2017-05-28] MEDS: (Novolin R) Insulin Human Regular 100 units/ml vial SC SCH ×2 (08:00→12:06)
[2017-05-28] MEDS ORDERED: Midazolam 2 MG/2 ML VIAL ONE (08:43)
[2017-05-28] MEDS ORDERED: Iodixanol 320 MG/ML 200 ML BOTTLE IV ONE (08:46)
[2017-05-28] MEDS ORDERED: Influenza Vaccine 60 mcg/0.5 mL SYR (4YR UP) IM ONE (10:00)
[2017-05-28] MEDS: Pantoprazole 40 mg EC Tab PO SCH (10:33)
[2017-05-28] MEDS: NIFEdipine 60 mg ER Tab PO SCH (10:36)
[2017-05-28 12:30] VITALS: TEMP 98.4
[2017-05-28 12:54] VITALS: BP 153/58; PULSE 49; O2SAT 97
--- NOTE | 2017-05-28 19:34 | CP.PCM.DIS ---
<Sheirn Hughes - Last Filed: 05/28/17 19:31> Provider - Provider Date of Admission: 05/25/17 22:11 Attending physician: Wilfrido Garcia MD Consults: Dr. Aviles Time Spent in preparation of Discharge (in minutes): 35 Diagnosis - Discharge Diagnosis (1) Chest pain Status: Acute (2) Cystic thyroid nodule Status: Acute (3) Diabetes Status: Chronic (4) Hypertension Status: Chronic (5) Hyperlipidemia Status: Acute (6) BPH (benign prostatic hyperplasia) Status: Chronic (7) Prophylactic measure Status: Acute Hospital Course - Lab Results Lab Results: Micro Results 05/25/17 23:35 Naris MRSA Culture (Admit) - Final MRSA NOT DETECTED Most Recent Lab Values WBC 5.5 K/uL (4.8-10.8) 05/28/17 06:20 RBC 3.69 Mil/uL (4.40-5.90) L 05/28/17 06:20 Hgb 12.0 g/dL (12.0-18.0) 05/28/17 06:20 Hct 36.0 % (35.0-51.0) 05/28/17 06:20 MCV 97.6 fL (80.0-94.0) H 05/28/17 06:20 MCH 32.7 pg (27.0-31.0) H 05/28/17 06:20 MCHC 33.5 g/dL (33.0-37.0) 05/28/17 06:20 RDW 13.0 % (11.5-14.5) 05/28/17 06:20 Plt Count 213 K/uL (130-400) 05/28/17 06:20 MPV 10.2 fL (7.2-11.7) 05/28/17 06:20 Neut % (Auto) 67.5 % (50.0-75.0) 05/28/17 06:20 Lymph % (Auto) 20.9 % (20.0-40.0) 05/28/17 06:20 Kings % (Auto) 7.0 % (0.0-10.0) 05/28/17 06:20 Eos % (Auto) 4.0 % (0.0-4.0) 05/28/17 06:20 Baso % (Auto) 0.6 % (0.0-2.0) 05/28/17 06:20 Neut # 3.7 K/uL (1.8-7.0) 05/28/17 06:20 Lymph # 1.2 K/uL (1.0-4.3) 05/28/17 06:20 Kings # 0.4 K/uL (0.0-0.8) 05/28/17 06:20 Eos # 0.2 K/uL (0.0-0.7) 05/28/17 06:20 Baso # 0.0 K/uL (0.0-0.2) 05/28/17 06:20 PT 10.9 SECONDS (9.7-12.2) 05/28/17 06:16 INR 1.0 05/28/17 06:16 APTT 32 SECONDS (21-34) D 05/28/17 06:16 D-Dimer, Quantitative 485 ng/mlDDU (0-243) H 05/25/17 17:23 Sodium 133 mmol/L (132-148) 05/28/17 06:17 Potassium 4.9 mmol/L (3.6-5.2) 05/28/17 06:17 Chloride 96 mmol/L (98-107) L 05/28/17 06:17 Carbon Dioxide 26 mmol/L (22-30) 05/28/17 06:17 Anion Gap 16 (10-20) 05/28/17 06:17 BUN 24 mg/dL (9-20) H 05/28/17 06:17 Creatinine 0.9 mg/dL (0.8-1.5) 05/28/17 06:17 Est GFR ( Amer) > 60 05/28/17 06:17 Est GFR (Non-Af Amer) > 60 05/28/17 06:17 POC Glucose (mg/dL) 281 mg/dL (65-110) H 05/28/17 11:00 Random Glucose 281 mg/dL (75-110) H 05/28/17 06:17 Hemoglobin A1c 6.9 % (4.2-6.5) H 05/26/17 05:34 Calcium 9.0 mg/dl (8.6-10.4) 05/28/17 06:17 Phosphorus 3.3 mg/dL (2.5-4.5) 05/28/17 06:17 Magnesium 1.7 mg/dL (1.6-2.3) 05/28/17 06:17 Total Bilirubin 0.9 mg/dL (0.2-1.3) 05/28/17 06:17 AST 17 U/L (17-59) 05/28/17 06:17 ALT 38 U/L (21-72) 05/28/17 06:17 Alkaline Phosphatase 52 U/L (38-126) 05/28/17 06:17 Total Creatine Kinase 48 U/L (55-170) L 05/26/17 14:46 CK-MB (Mass) 0.79 ng/mL (0.0-3.38) 05/26/17 14:46 Troponin I < 0.0120 ng/mL (0.00-0.120) 05/25/17 17:23 Troponin I, Quant < 0.0120 ng/mL (0.00-0.120) 05/26/17 14:46 NT-Pro-B Natriuret Pep 62.1 pg/mL (0-900) 05/25/17 17:23 Total Protein 7.4 g/dL (6.3-8.3) 05/28/17 06:17 Albumin 3.7 g/dL (3.5-5.0) 05/28/17 06:17 Globulin 3.7 gm/dL (2.2-3.9) 05/28/17 06:17 Albumin/Globulin Ratio 1.0 (1.0-2.1) 05/28/17 06:17 Triglycerides 55 mg/dL (0-149) 05/26/17 05:34 Cholesterol 153 mg/dL (0-199) 05/26/17 05:34 LDL Cholesterol Direct 94 mg/dL (0-129) 05/26/17 05:34 HDL Cholesterol 60 mg/dL (30-70) 05/26/17 05:34 Lipase 100 U/L (23-300) 05/25/17 17:23 TSH 3rd Generation 2.84 mIU/L (0.46-4.68) 05/26/17 05:34 - Hospital Course Hospital Course: Upon Admission: 81 year old male presents to the emergency room for chest pain. Patient states he has been having chest pain since Friday. The pain is constant and it is a 7/10. He states he only uses one pillow to sleep and the pain is made worse when he is laying down. He states he only had shortness of breath one night because he was congested but otherwise he does not experience shortness of breath. He states he comes today to the hospital because his sugar was about 350. He also states he has been having back pain on his right side that radiates to his left side which is constant and also started on Friday. Patient denies heart attacks in the past. Hospital Course: Patient was admitted to rule out DC. SHERYL and EKG negative x3. D-dimer: 485. ASA 81 mg daily started. TSH 2.84. CT Chest prior to echo showed no evidence of central pulmonary embolism, Minimal nonspecific patchy opacity right lower lobe , Apical thinning of left ventricular myocardium, Right lobe thyroid nodule, Bilateral renal cortical cysts. Cardiology was consulted (Dr. Aviles) who recommended echo which showed EF 60-65% with diastolic dysfunction. Dr. Aviles then recommended cardiac catheterization which showed no disease. US of thyroid was done and showed complex cystic nodule of the lower pole of the right lobe measuring 1.5 cm. We recommended outpatient thyroid biopsy. Possible pneumonia was treated with zithromax and ceftriaxone. Patient's history of diabetes was treated with sliding scale insulin and monitored with accuchecks. HbA1c 6.9. Patient's HTN was treated with his home meds: Losartan 100mg daily, Nifedipine ER 60mg daily, Furosemide 20mg daily. Patient's HLD was treated with his home meds: Simvastatin 20 mg QD. Lipid panel showed: Trig 55, Chol 153, LDL 94, HDL 60 Patient's BPH was treated with home med: Tamsulosin 0.4 mg daily. Upon discharge: Patient seen and examined at bedside and doing well. He is clear for discharge per Dr. Garcia. Patient was discharged with the following instructions: Please follow up with you PCP, Dr. Freedman, within 1 week for continuity of care and for referral to have thyroid biopsy in outpatient setting. Please follow up with Dr. Aviles, the hot dipper, upon discharge. Appointments can be made by calling his office at , or by visiting his office at [address] [place] [address]. [phone], [place] [address]. Please resume all home medications in addition to levoquin 500 mg daily for 5 days. Please note that this is a summary of events. For more details, please see complete medical record. Discharge Exam - Head Exam Head Exam: ATRAUMATIC, NORMOCEPHALIC - Eye Exam Eye Exam: EOMI - ENT Exam ENT Exam: Mucous Membranes Moist - Respiratory Exam Respiratory Exam: Clear to PA & Lateral, NORMAL BREATHING PATTERN, UNREMARKABLE - Cardiovascular Exam Cardiovascular Exam: Bradycardia, REGULAR RHYTHM, +S1, +S2 - GI/Abdominal Exam GI & Abdominal Exam: Normal Bowel Sounds, Soft, Unremarkable. absent: Distended , Tenderness - Extremities Exam Extremities exam: normal inspection - Neurological Exam Neurological exam: Alert, Oriented x3 - Psychiatric Exam Psychiatric exam: Normal Affect, Normal Mood - Skin Skin Exam: Dry, Intact, Normal Color, Warm Discharge Plan - Discharge Medications Prescriptions: Levofloxacin [Levaquin] 500 mg PO DAILY #5 tablet Simvastatin 20 mg PO HS #30 tablet - Follow Up Plan Condition: STABLE Disposition: HOME/ ROUTINE Instructions: Diabetic Ketoacidosis (DC), Diabetic Ketoacidosis (GEN), Hypertension (DC), Hypertension (GEN) Additional Instructions: Please follow up with you PCP, Dr. Freedman, within 1 week for continuity of care and for referral to have thyroid biopsy in outpatient setting. Please follow up with Dr. Aviles, the hot dipper, upon discharge. Appointments can be made by calling his office at , or by visiting his office at [address] [place] [address]. [address], [place] [address]. Please resume all home medications in addition to levoquin 500 mg daily for 5 days. Referrals: Po Aviles MD [Staff Provider] - <Wilfrido Garcia - Last Filed: 06/07/17 17:37> Provider - Provider Date of Admission: 05/25/17 22:11 Attending physician: Wilfrido Garcia MD Hospital Course - Lab Results Lab Results: Micro Results 05/28/17 19:00 Naris MRSA Culture - Final MRSA NOT DETECTED 05/25/17 23:35 Naris MRSA Culture (Admit) - Final MRSA NOT DETECTED Most Recent Lab Values WBC 5.5 K/uL (4.8-10.8) 05/28/17 06:20 RBC 3.69 Mil/uL (4.40-5.90) L 05/28/17 06:20 Hgb 12.0 g/dL (12.0-18.0) 05/28/17 06:20 Hct 36.0 % (35.0-51.0) 05/28/17 06:20 MCV 97.6 fL (80.0-94.0) H 05/28/17 06:20 MCH 32.7 pg (27.0-31.0) H 05/28/17 06:20 MCHC 33.5 g/dL (33.0-37.0) 05/28/17 06:20 RDW 13.0 % (11.5-14.5) 05/28/17 06:20 Plt Count 213 K/uL (130-400) 05/28/17 06:20 MPV 10.2 fL (7.2-11.7) 05/28/17 06:20 Neut % (Auto) 67.5 % (50.0-75.0) 05/28/17 06:20 Lymph % (Auto) 20.9 % (20.0-40.0) 05/28/17 06:20 Kings % (Auto) 7.0 % (0.0-10.0) 05/28/17 06:20 Eos % (Auto) 4.0 % (0.0-4.0) 05/28/17 06:20 Baso % (Auto) 0.6 % (0.0-2.0) 05/28/17 06:20 Neut # 3.7 K/uL (1.8-7.0) 05/28/17 06:20 Lymph # 1.2 K/uL (1.0-4.3) 05/28/17 06:20 Kings # 0.4 K/uL (0.0-0.8) 05/28/17 06:20 Eos # 0.2 K/uL (0.0-0.7) 05/28/17 06:20 Baso # 0.0 K/uL (0.0-0.2) 05/28/17 06:20 PT 10.9 SECONDS (9.7-12.2) 05/28/17 06:16 INR 1.0 05/28/17 06:16 APTT 32 SECONDS (21-34) D 05/28/17 06:16 D-Dimer, Quantitative 485 ng/mlDDU (0-243) H 05/25/17 17:23 Sodium 133 mmol/L (132-148) 05/28/17 06:17 Potassium 4.9 mmol/L (3.6-5.2) 05/28/17 06:17 Chloride 96 mmol/L (98-107) L 05/28/17 06:17 Carbon Dioxide 26 mmol/L (22-30) 05/28/17 06:17 Anion Gap 16 (10-20) 05/28/17 06:17 BUN 24 mg/dL (9-20) H 05/28/17 06:17 Creatinine 0.9 mg/dL (0.8-1.5) 05/28/17 06:17 Est GFR ( Amer) > 60 05/28/17 06:17 Est GFR (Non-Af Amer) > 60 05/28/17 06:17 POC Glucose (mg/dL) 281 mg/dL (65-110) H 05/28/17 11:00 Random Glucose 281 mg/dL (75-110) H 05/28/17 06:17 Hemoglobin A1c 6.9 % (4.2-6.5) H 05/26/17 05:34 Calcium 9.0 mg/dl (8.6-10.4) 05/28/17 06:17 Phosphorus 3.3 mg/dL (2.5-4.5) 05/28/17 06:17 Magnesium 1.7 mg/dL (1.6-2.3) 05/28/17 06:17 Total Bilirubin 0.9 mg/dL (0.2-1.3) 05/28/17 06:17 AST 17 U/L (17-59) 05/28/17 06:17 ALT 38 U/L (21-72) 05/28/17 06:17 Alkaline Phosphatase 52 U/L (38-126) 05/28/17 06:17 Total Creatine Kinase 48 U/L (55-170) L 05/26/17 14:46 CK-MB (Mass) 0.79 ng/mL (0.0-3.38) 05/26/17 14:46 Troponin I < 0.0120 ng/mL (0.00-0.120) 05/25/17 17:23 Troponin I, Quant < 0.0120 ng/mL (0.00-0.120) 05/26/17 14:46 NT-Pro-B Natriuret Pep 62.1 pg/mL (0-900) 05/25/17 17:23 Total Protein 7.4 g/dL (6.3-8.3) 05/28/17 06:17 Albumin 3.7 g/dL (3.5-5.0) 05/28/17 06:17 Globulin 3.7 gm/dL (2.2-3.9) 05/28/17 06:17 Albumin/Globulin Ratio 1.0 (1.0-2.1) 05/28/17 06:17 Triglycerides 55 mg/dL (0-149) 05/26/17 05:34 Cholesterol 153 mg/dL (0-199) 05/26/17 05:34 LDL Cholesterol Direct 94 mg/dL (0-129) 05/26/17 05:34 HDL Cholesterol 60 mg/dL (30-70) 05/26/17 05:34 Lipase 100 U/L (23-300) 05/25/17 17:23 TSH 3rd Generation 2.84 mIU/L (0.46-4.68) 05/26/17 05:34 Attending/Attestation - Attestation I have personally seen and examined this patient.: Yes I have fully participated in the care of the patient.: Yes I have reviewed all pertinent clinical information, including history, physical exam and plan: Yes Notes (Text): Patient was seen and examined on the day of discharge.Patient and his was told about the need for the thyroid biopsy to rule out malignancy.[facility].
--- NOTE | 2017-05-28 23:52 | CP.PCM.PN ---
Subjective - Date & Time of Evaluation Date of Evaluation: 05/28/17 Time of Evaluation: 15:00 - Subjective Subjective: Patient s/p cath Non obstructive coronaries Medical mgt Objective - Vital Signs/Intake and Output Vital Signs (last 24 hours): Temp Pulse Resp BP Pulse Ox 98.4 F 49 L 13 153/58 H 97 05/28/17 12:00 05/28/17 12:43 05/28/17 12:43 05/28/17 12:43 05/28/17 12:43 - Labs Labs: 05/28/17 06:20 05/28/17 06:17 PT 10.9 SECONDS (9.7-12.2) 05/28/17 06:16 INR 1.0 05/28/17 06:16 APTT 32 SECONDS (21-34) D 05/28/17 06:16
--- NOTE | 2017-05-29 16:46 | CARD ---
APPROVED REPORT Protocol: LEXISCAN Test Type: LEXISCAN STRESS Target HR: 140 bpm Resting ECG: Incomplete RBBB Resting Heart Rate: 48 bpm Resting Blood Pressure: 140/80mmHg submaximum (85%): 119 bpm TEST SUMMARY [id number]/80.0. INFUSIONDOSE 100:300.00.01.047/.0. [id number]/80.0. PROCEDURE Pharmacologic stress testing was performed using 0.4mg per 5ml of regadenoson given intravenously over 7-10 seconds. POST EXERCISE Reason for Termination: Test completed Target HR: No Max HR: 47 bpm 55% of Maximum Predicted HR: 140 bpm Exercise duration: 00:30 min:sec, 0 Stage Exercise capacity: 1.0METs Max Blood Pressure: 140/80mmHg Blood Pressure response to exercise: normal resting BP - appropriate response Heart Rate response to exercise: appropriate Chest Pain: No, none Angina index: 0 Arrhythmia: No, none ST Change: No, none Deviation: 0 mm INTERPRETATION Stress EKG Conclusion: Nuclear images to follow EXAM: Myocardial Perfusion STRESS/REST Imaging Protocol The imaging protocol used to acquire images was Stress Tc-99m/rest Tc-99m 1 day Rest Spect myocardial perfusion imaging was performed in supine position 45 minutes following the injection of 30.6 mCi of Tc-99 Myoview. Gated Stress Spect was performed 45 minutes after intravenous 13.2 mCi Tc-99 Myoview injection. The images were gated to evaluate regional wall motion and calculate ventricular ejection fraction.Images were reconstructed using backfilter projection method in short horizontal and verticle long axis. Spect slices were generated. RESTING DATA [id number]/min ESV59.00mlMyocardial Fjuv083.00g Av. Heart Rate46.00bpm EF55.00% STRESS DATA TVI453.79opDW4.20L/min ESV52.00mlMyocardial Hsmr197.00g EF60.00% Regional WT score at stress:0.00 Regional WM score at stress:0.00 Summed WT score at stress:2.00 Av. Heart Rate53.00bpmSummed WM score at stress:4.00 LV Perf. Quant 17 Seg. SSS2.00 17 Seg. SRS2.00 17 Seg. SDS0.00 Stress Defect Extent (% LAD)1.90Rest Defect Extent (% LAD)0.00Rev. Defect Extent (% LAD)0.00 Stress Defect Extent (% LCX)16.30Rest Defect Extent (% LCX)22.50Rev. Defect Extent (% LCX)0.00 Stress Defect Extent (% RCA)0.00Rest Defect Extent (% RCA)0.00Rev. Defect Extent (% RCA)0.00 Stress Defect Extent (% JARAD)7.60Rest Defect Extent (% JARAD)5.90Rev. Defect Extent (% JARAD)0.00 Other Information Quality:Good IMPRESSION Abnormal Myocardial Perfusion exercise stress study Left Ventricle LV Function:Left ventricle systolic function is normal. The Ejection Fraction is >55%. Conclusion 1. Small apical reversible perfusion defect suggestive of stress induced ischemia. Normal EF
--- NOTE | 2017-05-29 16:50 | CARD ---
APPROVED REPORT EKG Measurement Heart [id number] [place] [id number] <Conclusion> Sinus rhythm with premature atrial complexes Right bundle branch block Abnormal ECG
[2017-05-30 16:26] VITALS: RESP 16
--- NOTE | 2017-05-30 16:58 | CARD ---
APPROVED REPORT EKG Measurement Heart [id number] [place] 154P53 [id number] <Conclusion> Sinus bradycardia Right bundle branch block Abnormal ECG
--- NOTE | 2017-05-30 17:05 | CARD ---
APPROVED REPORT EKG Measurement Heart [id number] [place] 168P62 [id number] <Conclusion> Sinus bradycardia Right bundle branch block Abnormal ECG
--- NOTE | 2017-06-01 10:20 | CARDCATH ---
PROCEDURE DATE: 05/28/2017 PROCEDURES: 1. Coronary angiogram. 2. Left ventricular angiogram. 3. Radiological supervision and radiological interpretation of the coronary angiogram and LV angiogram. CLINICAL INDICATIONS: 1. Abnormal stress test. 2. Angina. 3. Hypertension. 4. Diabetes. PERFORMING PHYSICIAN: Dr. Po Aviles. PROCEDURE: After informed consent, the patient was prepped and draped in the usual sterile fashion. A 2% lidocaine was given in the right groin for local anesthesia. Using micropuncture technique, a 6-Singaporean sheath was injected into right common femoral artery. A JL4 6-Singaporean diagnostic catheter was engaged into left main coronary artery. Contrast injected and left coronary angiogram was performed. JR4 6-Singaporean diagnostic catheter was engaged into right coronary artery. Contrast injected and right coronary angiogram was performed. Pigtail catheter inserted into left ventricle across the aortic valve. Contrast injected and LV angiography was performed. LV pressure and gradient across the aortic valve was measured. The patient tolerated the procedure well. Post-procedure, sheaths were removed and excellent hemostasis accomplished. FINDINGS: 1. Left main coronary artery is patent. 2. Proximal, distal LAD and diagonal branches are patent; however, mid LAD has 50% concentric nonobstructive stenosis. 3. Left circumflex and obtuse marginal branches are patent. 4. Right coronary artery is dominant and patent. 5. LV ejection fraction is approximately 50%. No gradient across the aortic valve. EDP is 18. IMPRESSION: Nonobstructive coronary arteries with mid left anterior descending 50% stenosis. RECOMMENDATION: Medical management. Po Aviles MD STARLA
== END 2017-05-28 15:29 | disposition home or self-care (01) | DRG 286 ==
LOC: C.ER 17:07 → C.9E 21:25 → OBSVTOIN 22:11 → C.9I 22:50
PROVIDERS: ADMIT Internal Medicine; ATTEND Internal Medicine
PROC: 4A023N7 Measurement of Cardiac Sampling and Pressure, Left Heart, Percutaneous Approach (ICD-10-PCS; principal; 2017-05-25)
PROC: B2151ZZ Fluoroscopy of Left Heart using Low Osmolar Contrast (ICD-10-PCS; 2017-05-25)
PROC: B2111ZZ Fluoroscopy of Multiple Coronary Arteries using Low Osmolar Contrast (ICD-10-PCS; 2017-05-25)
DX: I25.119 Atherosclerotic heart disease of native coronary artery with unspecified angina pectoris (principal); J18.9 Pneumonia, unspecified organism; E11.9 Type 2 diabetes mellitus without complications; I34.0 Nonrheumatic mitral (valve) insufficiency; I10 Essential (primary) hypertension; E04.1 Nontoxic single thyroid nodule; E78.00 Pure hypercholesterolemia, unspecified; N40.0 Benign prostatic hyperplasia without lower urinary tract symptoms; Z79.82 Long term (current) use of aspirin; Z83.3 Family history of diabetes mellitus; Z87.891 Personal history of nicotine dependence

== ENCOUNTER 2017-07-10 08:25 | Day surgery (SDC) | payer MEDICARE, OTHER ==
--- NOTE | 2017-07-10 11:04 | CP.SDSHP ---
Same Day Surgery H & P - History Proposed Procedure: US guided FNA of right thyroid nodule Pre-Op Diagnosis: Thyroid nodule - Allergies Allergies: Allergies No Known Allergies Allergy (Verified 05/25/17 17:17) - Physical Exam Vital Signs: Vital Signs 07/10/17 08:44 Temperature 97.9 F Pulse Rate 50 L Respiratory 20 Rate Blood Pressure 146/69 O2 Sat by Pulse 97 Oximetry - Impression Impression: Pt with a 1.8 cm predominantly cystic right thyroid nodule. Plan US guided FNA. Pt. Evaluated Today:Candidate for Anesthesia & Procedure: No Short Stay Discharge - Short Stay Discharge Admitting Diagnosis/Reason for Visit: NODULE Disposition: HOME/ ROUTINE
--- NOTE | 2017-07-10 11:05 | PCM.SURG1 ---
Surgeon's Initial Post Op Note - Surgeon's Notes Surgeon: Gilmer Christine MD Sap Technical Developer: NONE Type of Anesthesia: Local Pre-Operative Diagnosis: Right thyroid nodule Operative Findings: US showed a 1.8 cm predominantly cystic right thyroid nodule Post-Operative Diagnosis: Right thyroid nodule Operation Performed: US guided FNA Specimen/Specimens Removed: 25 g FNA x 4 passes Estimated Blood Loss: EBL {In ML}: 0 Blood Products Given: N/A Drains Used: No Drains Post-Op Condition: Good Date of Surgery/Procedure: 07/10/17 Time of Surgery/Procedure: 11:00
[2017-07-10 11:34] VITALS: BP 111/51; PULSE 51; RESP 18; TEMP 97; O2SAT 100
--- NOTE | 2017-07-11 12:47 | US ---
PROCEDURE: Date of Procedure: 07/10/2017 PROCEDURE: 1. Ultrasound guided FNA of right thyroid nodule, CPT 98308 2. Ultrasound guidance for FNA, 77450 Medications: 3cc 1% Lidocaine HISTORY: Enlarged right thyroid nodule. TECHNIQUE: Following informed consent and procedure time-out, a limited ultrasound patient's neck confirmed the presence of a 1.5 cmcomplex right thyroid nodule which is predominantly cystic. After the patient's neck was prepped and draped in the usual sterile fashion, the skin was anesthetized with 1% lidocaine. Ultrasound-guided fine needle aspiration was then performed of the dominant right thyroid nodule. A total of 4 passes were made into the nodule with 25 gauge needle under ultrasound guidance. The FNA specimen was sent for routine pathology. Post biopsy ultrasound showed no hematoma. IMPRESSION: Ultrasound-guided FNA of the dominant right thyroid nodule.
== END 2017-07-10 11:36 | disposition home or self-care (01) ==
LOC: C.SPRAD 08:25
PROVIDERS: ATTEND Radiology Vascular & Interventional Radiology
DX: E04.1 Nontoxic single thyroid nodule (principal)

== ENCOUNTER 2017-11-11 10:23 | Emergency (ER) | payer MEDICARE, MEDICAID ==
[2017-11-11 10:33] VITALS: BMI 31.9
[2017-11-11 10:42] VITALS: RESP 18
[2017-11-11] MEDS ORDERED: Tdap Vaccine 0.5 ml Vial (10-64 yrs) IM ONE ×2 (11:18→11:42)
--- NOTE | 2017-11-11 11:25 | C.PDOC ---
History Of Present Illness 81 y/o male with dm presents with laceration to left 2nd finger; pt accidentally slammed finger in door. last tdap unknown. pt reports compliance with insulin and metformin. no numbness or tingling. Time Seen by Provider: 11/11/17 11:08 Chief Complaint (Nursing): Abnormal Skin Integrity History Per: Patient Onset/Duration Of Symptoms: Days Current Symptoms Are (Timing): Still Present Past Medical History Reviewed: Historical Data, Nursing Documentation, Vital Signs Vital Signs: Last Vital Signs Temp 97.3 F L 11/11/17 13:37 Pulse 60 11/11/17 13:37 Resp 18 11/11/17 13:37 BP 141/79 11/11/17 13:37 Pulse Ox 98 11/15/17 13:26 - Medical History PMH: Cardia Arrhythmia, Colonic Polyps, Diabetes (IDDM), HTN, Hypercholesterolemia, Peripheral Edema Surgical History: No Surg Hx - [facility] Procedures FLUOROSCOPY OF LEFT HEART USING LOW OSMOLAR CONTRAST (05/25/17) FLUOROSCOPY OF MULT COR ART USING L OSM CONTRAST (05/25/17) MEASURE OF CARDIAC SAMPL & PRESSURE, L HEART, PERC APPROACH (05/25/17) Family History: States: No Known Family Hx - Social History Hx Alcohol Use: Yes Hx Substance Use: No - Immunization History Hx Tetanus Toxoid Vaccination: No Hx Influenza Vaccination: Yes (2017) Hx Pneumococcal Vaccination: Yes Review Of Systems Constitutional: Negative for: Fever, Chills Cardiovascular: Negative for: Chest Pain Musculoskeletal: Positive for: Hand Pain, Other (laceration finger left) Skin: Negative for: Rash Neurological: Negative for: Weakness, Numbness, Dizziness Physical Exam - Physical Exam Appears: Non-toxic, No Acute Distress Skin: Warm, Dry, No Rash, Other (two, 1 cm parallel lacerations to medial aspect of distal phalanx of left 2nd finger. mild active bleeding. ) Head: Atraumatic, Normacephalic Eye(s): bilateral: Normal Inspection Oral Mucosa: Moist Neck: Normal ROM, Supple Cardiovascular: Rhythm Regular Respiratory: Normal Breath Sounds, No Rales, No Rhonchi, No Wheezing Gastrointestinal/Abdominal: Soft, No Tenderness, No Guarding, No Rebound ED Course And Treatment O2 Sat by Pulse Oximetry: 98 - Other Rad left hand XR X-Ray: Viewed By Me, Read By Radiologist Interpretation: PROCEDURE: Left Index finger radiographs. HISTORY: crush injury, eval for fx. COMPARISON: None. TECHNIQUE: AP radiograph of the left hand, as well as spot oblique and lateral images of index finger were obtained. FINDINGS: LEFT INDEX FINGER: Normal left index finger, without fracture or focal lesion. Remainder of the left hand (as seen on the AP view) grossly intact. JOINTS: Normal. SOFT TISSUES: Bandage seen over distal aspect of 2nd digit. No radiopaque foreign body identified. OTHER FINDINGS: None. IMPRESSION: No acute fracture. Laceration - Laceration Repair left 2nd finger Wound Length (In cm): 1 cm x 2 lacerations Description Of Wound: Linear Anesthesia: Lidocaine 1% Wound Examination: Irrigated With Saline, No FB With Wound Exploration, No Tendon Injury With Wound Exploration Wound Closure: Suture (5) Wound Complexity: Simple Medical Decision Making Medical Decision Making: Progress: Left hand XR ordered and reviewed,. Bacitracin TOP applied. Keflex PO, Tylenol PO and Tetanus IM administered. no fx on xray, given tdap, tylenol, keflex and wound was repaired. Disposition Counseled Patient/Family Regarding: Studies Performed, Diagnosis, Need For Followup, Rx Given - Disposition Referrals: Andre Freedman MD [Staff Provider] - Disposition: HOME/ ROUTINE Disposition Time: 13:20 Condition: GOOD Additional Instructions: Mantenga la herida limpia y seca. Cambie el vendaje diariamente, lave suavemente con agua y jabn y vuelva a aplicar bacitracin. [place] los antibi ticos segn lo prescrito. Eliminacin de sutura en 7- 10 llamas. Tylenol para sart n si es necesario. Regrese a la tom de emergencias para detectar signos de infeccin tales mac enrojecimiento, secrecin, peor dolor. Keep wound clean and dry. CHange dressing daily, wash gently with soap and water and re-apply bacitracin. Take Antibiotics as prescribed. Suture removal in 7- 10 days. Tylenol for thurston if needed. Return to ER for nay signs of infectin such as redness, discharge, worse pain. Prescriptions: Acetaminophen [Tylenol 325mg tab] 650 mg PO Q4 #50 tab Bacitracin OINT 1 applic TOP BID #1 tube Cephalexin [cephalexin] 500 mg PO QID #28 cap Instructions: Laceration Repair With Stitches (DC) Forms: Gen Discharge Inst Sami, [facility] [employer] [facility] (Sami) Print Language: CITIZEN OF [place] - Clinical Impression Clinical Impression: Laceration of left index finger
[2017-11-11] MEDS ORDERED: Bacitracin 500 Units/gm Oint Foilpak UD ONE ×2 (11:50→13:19)
--- NOTE | 2017-11-11 11:58 | RAD ---
PROCEDURE: Left Index finger radiographs. HISTORY: crush injury, eval for fx COMPARISON: None. TECHNIQUE: AP radiograph of the left hand, as well as spot oblique and lateral images of index finger were obtained. FINDINGS: LEFT INDEX FINGER: Normal left index finger, without fracture or focal lesion. Remainder of the left hand (as seen on the AP view) grossly intact. JOINTS: Normal. SOFT TISSUES: Bandage seen over distal aspect of 2nd digit. No radiopaque foreign body identified. OTHER FINDINGS: None. IMPRESSION: No acute fracture.
[2017-11-11] MEDS ORDERED: Bacitracin 500 Units/gm Oint Foilpak UD TOP ONE (12:16)
[2017-11-11] MEDS ORDERED: Lidocaine 1% Inj (20ml) INFIL ONE (12:16)
[2017-11-11 13:38] VITALS: BP 141/79; PULSE 60; TEMP 97.3
[2017-11-11 20:27] VITALS: O2SAT 98
== END 2017-11-11 13:38 | disposition home or self-care (01) ==
LOC: C.ER 10:23
DX: S61.211A Laceration without foreign body of left index finger without damage to nail, initial encounter (principal); W22.8XXA Striking against or struck by other objects, initial encounter

== ENCOUNTER 2017-11-18 09:08 | Emergency (ER) | payer MEDICARE, MEDICAID ==
[2017-11-18 09:08] VITALS: BMI 31.9
[2017-11-18 09:17] VITALS: BP 138/62; PULSE 63; RESP 18; TEMP 98.3; O2SAT 99
--- NOTE | 2017-11-18 09:46 | C.PDOC ---
History Of Present Illness 81 year old male presents to the ED for suture removal. Patient reports suture were placed on 11/11 to his left second finger distal phalanx. Patient states no complications and the wound is healing well. Patient denies fever, chills, weakness, numbness, new injury, fall, trauma. Time Seen by Provider: 11/18/17 09:32 Chief Complaint (Nursing): Suture/Staple Removal History Per: Patient History/Exam Limitations: no limitations Onset/Duration Of Symptoms: Days Ago (11/11) Current Symptoms Are (Timing): Better Location Of Injury: Left: Hand (5th finger) Recent travel outside of the [place]: No Additional History Per: Patient Past Medical History Reviewed: Historical Data, Nursing Documentation, Vital Signs Vital Signs: Last Vital Signs Temp 98.3 F 11/18/17 09:14 Pulse 63 11/18/17 09:14 Resp 18 11/18/17 09:14 BP 138/62 11/18/17 09:14 Pulse Ox 99 11/18/17 09:51 - Medical History PMH: Cardia Arrhythmia, Colonic Polyps, Diabetes (IDDM), HTN, Hypercholesterolemia, Peripheral Edema Denies: Chronic Kidney Disease Surgical History: No Surg Hx - [facility] Procedures FLUOROSCOPY OF LEFT HEART USING LOW OSMOLAR CONTRAST (05/25/17) FLUOROSCOPY OF MULT COR ART USING L OSM CONTRAST (05/25/17) MEASURE OF CARDIAC SAMPL & PRESSURE, L HEART, PERC APPROACH (05/25/17) Family History: States: Unknown Family Hx - Social History Hx Alcohol Use: Yes Hx Substance Use: No - Immunization History Hx Tetanus Toxoid Vaccination: No Hx Influenza Vaccination: Yes (2016) Hx Pneumococcal Vaccination: Yes Review Of Systems Except As Marked, All Systems Reviewed And Found Negative. Skin: Positive for: Other (wound) Physical Exam - Physical Exam Appears: Non-toxic, No Acute Distress Skin: Normal Color, Warm, Dry Head: Atraumatic, Normacephalic Eye(s): bilateral: Normal Inspection Nose: No Discharge Oral Mucosa: Moist Extremity: Normal ROM, No Tenderness, Capillary Refill (< 2 seconds), No Swelling, Other (healing laceration to left 5th finger. ) Pulses: Left Radial: Normal, Right Radial: Normal Neurological/Psych: Oriented x3, Normal Motor, Normal Sensation Gait: Steady ED Course And Treatment O2 Sat by Pulse Oximetry: 99 (On RA) Pulse Ox Interpretation: Normal Medical Decision Making Medical Decision Makin sutures were removed from the 5th left finger, patient tolerated the procedure well with no complications. Disposition Counseled Patient/Family Regarding: Diagnosis - Disposition Referrals: [facility] [Outside] Disposition: HOME/ ROUTINE Disposition Time: 09:45 Condition: STABLE Additional Instructions: follow up with your doctor in 2 days call to make an appointment continue your medications at home return to ER if symptoms worsens or progress Instructions: Stitches Removal Forms: Gen Discharge Inst Malagasy, [employer] (Malagasy) - Clinical Impression Clinical Impression: Removal of suture - Scribe Statement The provider has reviewed the documentation as recorded by the Scribe Sammy Norton All medical record entries made by the Scribe were at my direction and personally dictated by me. I have reviewed the chart and agree that the record accurately reflects my personal performance of the history, physical exam, medical decision making, and the department course for this patient. I have also personally directed, reviewed, and agree with the discharge instructions and disposition.
== END 2017-11-18 09:52 | disposition home or self-care (01) ==
LOC: C.ER 09:08
DX: Z48.02 Encounter for removal of sutures (principal)

== ENCOUNTER 2018-04-07 10:07 | Observation (INO) | payer MEDICARE, MEDICAID ==
[2018-04-07 10:08] VITALS: BMI 31.9
--- NOTE | 2018-04-07 10:45 | C.PDOC ---
History Of Present Illness 82 y/o male with history of HTN, Hyperlipidimia, BPH and DM presents to ED with c/o left sided chest pain for 9 days. It started whiling excersicing but symptoms persist. The pain is described at pressure "inside" radiating to his left shoulder. Patient reports he had stress test 6 months ago that was "normal ". Notes h/o similar episodes last year. He took 81mg Aspirin earlier today. Patient denies sob, headache, sweating, abdominal pain, dizziness, nausea, vomiting or any other complaints at this time. Time Seen by Provider: 04/07/18 10:12 Chief Complaint (Nursing): Chest Pain History Per: Patient History/Exam Limitations: no limitations Onset/Duration Of Symptoms: Days Current Symptoms Are (Timing): Still Present Past Medical History Reviewed: Historical Data, Nursing Documentation, Vital Signs Vital Signs: Last Vital Signs Temp 97.8 F 04/10/18 08:40 Pulse 43 L 04/10/18 10:49 Resp 20 04/10/18 08:40 BP 160/65 H 04/10/18 10:50 Pulse Ox 96 04/10/18 08:40 - Medical History PMH: Cardia Arrhythmia, Colonic Polyps, Diabetes (IDDM), HTN, Hypercholesterolemia, Peripheral Edema Other Surgeries: ankle surgery - [facility] Procedures FLUOROSCOPY OF LEFT HEART USING LOW OSMOLAR CONTRAST (05/25/17) FLUOROSCOPY OF MULT COR ART USING L OSM CONTRAST (05/25/17) MEASURE OF CARDIAC SAMPL & PRESSURE, L HEART, PERC APPROACH (05/25/17) Family History: States: OR (mother at 85), Diabetes (mother) - Social History Hx Tobacco Use: No (Quit 10+ years ago) Hx Alcohol Use: No (Quit 10 years ago) Hx Substance Use: No - Immunization History Hx Tetanus Toxoid Vaccination: No Hx Influenza Vaccination: Yes (2017) Hx Pneumococcal Vaccination: Yes Review Of Systems Except As Marked, All Systems Reviewed And Found Negative. Constitutional: Negative for: Fever, Chills Cardiovascular: Positive for: Chest Pain Respiratory: Negative for: Cough, Shortness of Breath Gastrointestinal: Negative for: Nausea, Vomiting Skin: Negative for: Rash Physical Exam - Physical Exam Appears: Non-toxic, No Acute Distress Skin: Warm, Dry, No Rash Head: Atraumatic, Normacephalic Eye(s): bilateral: Normal Inspection, EOMI Nose: Normal Oral Mucosa: Moist Neck: Normal ROM, Supple Chest: Symmetrical, Tenderness (to interior chest wall) Cardiovascular: Rhythm Regular Respiratory: Normal Breath Sounds, No Rales, No Rhonchi, No Wheezing Gastrointestinal/Abdominal: Soft, No Tenderness, No Guarding, No Rebound Extremity: Normal ROM, No Pedal Edema, Capillary Refill (<2 seconds) Neurological/Psych: Oriented x3, Normal Speech, Normal Cognition ED Course And Treatment - Laboratory Results Result Diagrams: 04/10/18 07:43 04/10/18 07:43 ECG: Interpreted By Me, Viewed By Me ECG Rhythm: Sinus Bradycardia, R BBB Rate From EC (BPM) O2 Sat by Pulse Oximetry: 96 (RA) Pulse Ox Interpretation: Normal Progress Note: CXR, Blood work,UA ordered. Aspirin administered. D/W Dr. Lola Thakur, agrees for patient to be admitted for Chest pain Disposition - Disposition Disposition: HOSPITALIZED Disposition Time: 11:00 Condition: STABLE - Clinical Impression Clinical Impression: Chest pain - PA / DIRECTOR OF MARKET ANALYSIS / Resident Statement MD/DO has reviewed & agrees with the documentation as recorded. - Scribe Statement The provider has reviewed the documentation as recorded by the Scribe Ozzie Kothari All medical record entries made by the Nina were at my direction and personally dictated by me. I have reviewed the chart and agree that the record accurately reflects my personal performance of the history, physical exam, medical decision making, and the department course for this patient. I have also personally directed, reviewed, and agree with the discharge instructions and disposition.
[2018-04-07 10:52] LABS: BASO % 0.5 % (0.0-2.0); EOS # 0.2 K/uL (0.0-0.7); EOS % 3.3 % (0.0-4.0); HEMOGLOBIN 11.6 g/dL (12.0-18.0); LYMPH % 21.6 % (20.0-40.0); MEAN CORPUSCULAR HEMOGLOBIN 33.9 pg (27.0-31.0); MEAN CORPUSCULAR HGB CONC 34.6 g/dL (33.0-37.0); MEAN PLATELET VOLUME 9.3 fL (7.2-11.7); MONO # 0.2 K/uL (0.0-0.8); NEUT # 3.3 K/uL (1.8-7.0); NEUT % 69.6 % (50.0-75.0); RBC 3.41 Mil/uL (4.40-5.90); RED CELL DISTRIBUTION WIDTH 13.4 % (11.5-14.5); WHITE BLOOD COUNT 4.8 K/uL (4.8-10.8)
[2018-04-07 11:04] LABS: ALB/GLOB RATIO 1.4 (1.0-2.1); ALBUMIN 4.2 g/dL (3.5-5.0); ALT/SGPT 19 U/L (21-72); AST/SGOT 14 U/L (17-59); BLOOD UREA NITROGEN 20 mg/dL (9-20); CALCIUM 9.4 mg/dl (8.6-10.4); GFR NON-AFRICAN AMERICAN > 60
--- NOTE | 2018-04-07 11:07 | RAD ---
Date of service: 04/07/2018 HISTORY: SOB COMPARISON: 05/25/2017 TECHNIQUE: Chest PA and lateral FINDINGS: LUNGS: Low-normal lung volumes. No interval consolidation. PLEURA: No significant pleural effusion identified. No pneumothorax apparent. CARDIOVASCULAR: Mild cardiomegaly. Atherosclerotic vascular calcifications present. Mild- to moderate pulmonary venous congestion -not significantly changed. OSSEOUS STRUCTURES: Thoracic spondylosis. VISUALIZED UPPER ABDOMEN: Normal. OTHER FINDINGS: None. IMPRESSION: No interval consolidation. Cardiomegaly and mild-moderate pulmonary venous congestion - similar
[2018-04-07 11:16] LABS: B-TYPE NATRIURETIC PEPTIDE 99.4 pg/mL (0-900); CK-MB 0.66 ng/mL (0.0-3.38)
[2018-04-07] MEDS ORDERED: Dextrose 50% SYRINGE Inj (50 ml) IV PRN (13:44)
[2018-04-07] MEDS ORDERED: Glucagon Recombinant 1 mg Inj IM PRN (13:44)
--- NOTE | 2018-04-07 16:53 | CP.PCM.HP ---
History of Present Illness - History of Present Illness History of Present Illness: cc: L sided chest pain Mr. Kumar is a 82 year old male PMH hypertension, diabetes, hyperlipidemia, benign prostatic hyperplasia comes in today for chest pain x9 days. It started when he was working out on the treadmill. Once the pain started , he ceased exercising but still felt the pain. He describes it as an intermittent pulsating pressure at his left chest radiating over his shoulder to his back. He rates it a 7/10 at worst, but is complaining of 3/10 on interview. He takes aspirin and Tylenol, which only temporarily relieved the pain. He came in today because this is the worst the pain has felt since starting. He's been hospitalized at [facility] for this issue twice before: once in 05/20 and again 03/19. 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 Denies headache, sweating, nausea, vomiting, abdominal pain, dizziness, weakness. PMH: HTN, DM, HLD, BPH PSxH: ankle repair FamHx: Mother: CAD, DM. Father: unsure SocHx: Former smoker: quit 10-12 years ago, smoked 1-1.5ppd for 40 years. 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 Denies drug use. Lives with , Verenice. 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 Med: Nifedipine, Valsartan, Tamsulosin, Simvastatin, Finasteride, metformin, ASA , Meloxicam All: NKDA Full Code Proxy: , Verenice Garcia Present on Admission - Present on Admission Any Indicators Present on Admission: No Review of Systems - Constitutional Constitutional: absent: Headache, Weakness - EENT Ears: absent: Dizziness - Cardiovascular Cardiovascular: Chest Pain. absent: Diaphoresis, Dyspnea, Palpitations - Respiratory Respiratory: absent: Dyspnea - Gastrointestinal Gastrointestinal: absent: Abdominal Pain, Diarrhea, Nausea, Vomiting - Musculoskeletal Musculoskeletal: absent: Numbness Past Patient History - Infectious Disease Hx of Infectious Diseases: None - Past Medical History & Family History Past Medical History?: Yes - Past Social History Smoking Status: Former Smoker Alcohol: None Drugs: Denies - CARDIAC Hx Cardia Arrhythmia: Yes Hx Hypercholesterolemia: Yes Hx Hypertension: Yes Hx Peripheral Edema: Yes - PULMONARY Hx Respiratory Disorders: No - NEUROLOGICAL Hx Neurological Disorder: No - HEENT Hx HEENT Problems: Yes Other/Comment: HX: THYROID NODULE - RENAL Hx Chronic Kidney Disease: No - ENDOCRINE/METABOLIC Hx Endocrine Disorders: Yes Hx Diabetes Mellitus Type 2: Yes Other/Comment: HX: THYROID NODULE - HEMATOLOGICAL/ONCOLOGICAL Hx Blood Disorders: No - INTEGUMENTARY Hx Dermatological Problems: No - MUSCULOSKELETAL/RHEUMATOLOGICAL Hx Musculoskeletal Disorders: No Hx Falls: No - GASTROINTESTINAL Hx Gastrointestinal Disorders: Yes - GENITOURINARY/GYNECOLOGICAL Hx Genitourinary Disorders: Yes Hx Prostate Problems: Yes (BPH) - PSYCHIATRIC Hx Substance Use: No - SURGICAL HISTORY Hx Surgeries: Yes Hx Angiogram: Yes Hx Cardiac Catheterization: Yes (05/28/17) Hx Orthopedic Surgery: Yes (ankle) Other/Comment: HX: COLON POLYPECTOMY - ANESTHESIA Hx Anesthesia: Yes Hx Anesthesia Reactions: No Hx Malignant Hyperthermia: No Meds Allergies/Adverse Reactions: Allergies Allergy/AdvReac Type Severity Reaction Status Date / Time No Known Allergies Allergy Verified 11/18/17 09:17 Physical Exam - Constitutional Appears: Non-toxic, No Acute Distress - Head Exam Head Exam: NORMAL INSPECTION, NORMOCEPHALIC - Eye Exam Eye Exam: EOMI, Normal appearance. absent: Scleral icterus Pupil Exam: NORMAL ACCOMODATION, PERRL - ENT Exam ENT Exam: Mucous Membranes Moist, Normal Exam - Neck Exam Neck exam: Negative for: Lymphadenopathy, Tenderness, Thyromegaly - Respiratory Exam Respiratory Exam: Clear to Auscultation Bilateral, NORMAL BREATHING PATTERN. absent: Accessory Muscle Use, Chest Wall Tenderness, Decreased Breath Sounds, Rales, Rhonchi, Wheezes, Respiratory Distress, Stridor - Cardiovascular Exam Cardiovascular Exam: Bradycardia, REGULAR RHYTHM, +S1, +S2. absent: Clicks, Gallop, Rubs - GI/Abdominal Exam GI & Abdominal Exam: Normal Bowel Sounds, Soft. absent: Distended, Firm, Guarding, Organomegaly, Rebound, Rigid, Tenderness - Rectal Exam Rectal Exam: Deferred - Extremities Exam Extremities exam: Positive for: normal capillary refill, normal inspection, pedal edema. Negative for: calf tenderness, tenderness - Back Exam Back exam: NORMAL INSPECTION - Neurological Exam Neurological exam: Alert, CN II-XII Intact - Psychiatric Exam Psychiatric exam: Normal Affect, Normal Mood - Skin Skin Exam: Dry, Intact, Normal Color, Warm Results - Vital Signs Recent Vital Signs: Last Vital Signs Temp 98.4 F 04/07/18 10:09 Pulse 59 L 04/07/18 10:09 Resp 18 04/07/18 10:09 BP 154/64 H 04/07/18 10:09 Pulse Ox 96 04/07/18 12:34 - Labs Result Diagrams: 04/07/18 10:47 04/07/18 10:47 Labs: Laboratory Results - last 24 hr 04/07/18 04/07/18 10:47 10:47 WBC 4.8 RBC 3.41 L Hgb 11.6 L Hct 33.5 L MCV 98.0 H MCH 33.9 H MCHC 34.6 RDW 13.4 Plt Count 187 MPV 9.3 Neut % (Auto) 69.6 Lymph % (Auto) 21.6 [place] % (Auto) 5.0 Eos % (Auto) 3.3 Baso % (Auto) 0.5 Neut # (Auto) 3.3 Lymph # (Auto) 1.0 [place] # (Auto) 0.2 Eos # (Auto) 0.2 Baso # (Auto) 0.0 Sodium 139 Potassium 4.7 Chloride 97 L Carbon Dioxide 30 Anion Gap 16 BUN 20 Creatinine 0.9 Est GFR ( Amer) > 60 Est GFR (Non-Af Amer) > 60 Random Glucose 253 H Calcium 9.4 Total Bilirubin 0.9 AST 14 L D ALT 19 L Alkaline Phosphatase 42 Total Creatine Kinase 72 CK-MB (Mass) 0.66 Troponin I < 0.0120 NT-Pro-B Natriuret Pep 99.4 Total Protein 7.1 Albumin 4.2 Globulin 2.9 Albumin/Globulin Ratio 1.4 Assessment & Plan - Assessment and Plan (Free Text) Assessment: 82yoM PMH HTN, DM, HLD, BPH admitted for CP r/o ACS Plan: 1) Chest Pain r/o ACS - CXR (04/07): no interval consolidation. Cardiomegaly and mild-moderate pulmonary venous congestion - EKGs and ROMIs x2 negative, pending third - BNP OA 99.4, increased from 62.1 from last year's admission for the same complaint - f/u lipid panel - f/u Hgb A1c - Lasix 20mg po daily - Cont home ASA 81mg po daily - Cardio consulted: Dr. Aviles, physician on previous admission. help appreciated. 2) Hypertension - Cont home Valsartan 320mg po daily - Cont home Nifedipine 60mg po daily 3) Hyperlipidemia - Cont home Simvastin 20 -> Crestor 10mg po HS - f/u lipid panel 4) BPH - Cont home Tamsulosin 0.4mg po daily - Cont home Finasteride 5mg po HS 5) Diabetes Mellitus - Cont home Metformin 1000mg po bid - ISS - moderate - Accucheck ACHS - hypoglycemia protocol d/w Dr. Blaze Parson PGY1 - Date & Time Date: 04/07/18 Time: 14:00
[2018-04-07 17:26] LABS: CK-MB 0.55 ng/mL (0.0-3.38)
[2018-04-07] MEDS: (Novolin R) Insulin Human Regular 100 units/ml vial SC SCH ×2 (17:30→21:55)
[2018-04-07 21:54] VITALS: RESP 20
--- NOTE | 2018-04-07 22:19 | CP.PCM.CON ---
History of Present Illness - History of Present Illness History of Present Illness: cc: L sided chest pain Mr. Kumar is a 82 year old male PMH hypertension, diabetes, hyperlipidemia, benign prostatic hyperplasia comes in today for chest pain x9 days. It started when he was working out on the treadmill. Once the pain started , he ceased exercising but still felt the pain. He describes it as an intermittent pulsating pressure at his left chest radiating over his shoulder to his back. He rates it a 7/10 at worst, but is complaining of 3/10 on interview. He takes aspirin and Tylenol, which only temporarily relieved the pain. He came in today because this is the worst the pain has felt since starting. He's been hospitalized at [facility] for this issue twice before: once in 05/20 and again 03/19. He has been following up with his outpatient pega developer since discharge, but does not remember their name. Denies headache, sweating, nausea, vomiting, abdominal pain, dizziness, weakness. PMH: HTN, DM, HLD, BPH PSxH: ankle repair FamHx: Mother: CAD, DM. Father: unsure SocHx: Former smoker: quit 10-12 years ago, smoked 1-1.5ppd for 40 years. 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 Denies drug use. Lives with , Verenice. 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 Med: Nifedipine, Valsartan, Tamsulosin, Simvastatin, Finasteride, metformin, ASA , Meloxicam All: NKDA Full Code Proxy: , Verenice Garcia Present on Admission - Present on Admission Any Indicators Present on Admission: No Review of Systems - Constitutional Constitutional: absent: Headache, Weakness - EENT Ears: absent: Dizziness - Cardiovascular Cardiovascular: Chest Pain. absent: Diaphoresis, Dyspnea, Palpitations - Respiratory Respiratory: absent: Dyspnea - Gastrointestinal Gastrointestinal: absent: Abdominal Pain, Diarrhea, Nausea, Vomiting - Musculoskeletal Musculoskeletal: absent: Numbness Physical Exam - Constitutional Appears: Non-toxic, No Acute Distress - Head Exam Head Exam: NORMAL INSPECTION, NORMOCEPHALIC - Eye Exam Eye Exam: EOMI, Normal appearance. absent: Scleral icterus Pupil Exam: NORMAL ACCOMODATION, PERRL - ENT Exam ENT Exam: Mucous Membranes Moist, Normal Exam - Neck Exam Neck exam: Negative for: Lymphadenopathy, Tenderness, Thyromegaly - Respiratory Exam Respiratory Exam: Clear to Auscultation Bilateral, NORMAL BREATHING PATTERN. absent: Accessory Muscle Use, Chest Wall Tenderness, Decreased Breath Sounds, Rales, Rhonchi, Wheezes, Respiratory Distress, Stridor - Cardiovascular Exam Cardiovascular Exam: Bradycardia, REGULAR RHYTHM, +S1, +S2. absent: Clicks, Gallop, Rubs - GI/Abdominal Exam GI & Abdominal Exam: Normal Bowel Sounds, Soft. absent: Distended, Firm, Guarding, Organomegaly, Rebound, Rigid, Tenderness - Rectal Exam Rectal Exam: Deferred - Extremities Exam Extremities exam: Positive for: normal capillary refill, normal inspection, pedal edema. Negative for: calf tenderness, tenderness - Back Exam Back exam: NORMAL INSPECTION - Neurological Exam Neurological exam: Alert, CN II-XII Intact - Psychiatric Exam Psychiatric exam: Normal Affect, Normal Mood - Skin Skin Exam: Dry, Intact, Normal Color, Warm Past Patient History - Infectious Disease Hx of Infectious Diseases: None - Past Medical History & Family History Past Medical History?: Yes - Past Social History Smoking Status: Former Smoker Alcohol: None Drugs: Denies - CARDIAC Hx Cardia Arrhythmia: Yes Hx Hypercholesterolemia: Yes Hx Hypertension: Yes Hx Peripheral Edema: Yes - PULMONARY Hx Respiratory Disorders: No - NEUROLOGICAL Hx Neurological Disorder: No - HEENT Hx HEENT Problems: Yes Other/Comment: HX: THYROID NODULE - RENAL Hx Chronic Kidney Disease: No - ENDOCRINE/METABOLIC Hx Endocrine Disorders: Yes Hx Diabetes Mellitus Type 2: Yes Other/Comment: HX: THYROID NODULE - HEMATOLOGICAL/ONCOLOGICAL Hx Blood Disorders: No - INTEGUMENTARY Hx Dermatological Problems: No - MUSCULOSKELETAL/RHEUMATOLOGICAL Hx Musculoskeletal Disorders: No Hx Falls: No - GASTROINTESTINAL Hx Gastrointestinal Disorders: Yes - GENITOURINARY/GYNECOLOGICAL Hx Genitourinary Disorders: Yes Hx Prostate Problems: Yes (BPH) - PSYCHIATRIC Hx Substance Use: No - SURGICAL HISTORY Hx Surgeries: Yes Hx Angiogram: Yes Hx Cardiac Catheterization: Yes (05/28/17) Hx Orthopedic Surgery: Yes (ankle) Other/Comment: HX: COLON POLYPECTOMY - ANESTHESIA Hx Anesthesia: Yes Hx Anesthesia Reactions: No Hx Malignant Hyperthermia: No Meds Allergies/Adverse Reactions: Allergies Allergy/AdvReac Type Severity Reaction Status Date / Time No Known Allergies Allergy Verified 11/18/17 09:17 - Medications Medications: Current Medications Acetaminophen (Tylenol 325mg Tab) 650 mg PO Q6 PRN PRN Reason: Pain, moderate (4-7) Aspirin (Ecotrin) 81 mg PO DAILY [facility] Dextrose (Dextrose 50% Inj) 0 ml IV STAT PRN; Protocol PRN Reason: Hypoglycemia Protocol Dextrose (Glutose 15) 0 gm PO ONCE PRN; Protocol PRN Reason: Hypoglycemia Protocol Finasteride (Proscar) 5 mg PO DAILY [facility] Last Admin: 04/07/18 21:57 Dose: 5 mg Furosemide (Lasix) 20 mg PO DAILY [facility] Glucagon (Glucagen Diagnostic Kit) 0 mg IM STAT PRN; Protocol PRN Reason: Hypoglycemia Protocol Dextrose (Dextrose 5% In Water 1000 Ml) 1,000 mls @ 0 mls/hr IV .Q0M PRN; Protocol; Per Protocol PRN Reason: Hypoglycemia Protocol Insulin Human Regular (Novolin R) 0 unit SC ACHS [facility] PRN Reason: Protocol Last Admin: 04/07/18 21:55 Dose: Not Given Losartan Potassium (Cozaar) 100 mg PO DAILY [facility] Metformin HCl (Glucophage) 500 mg PO BIDCC [facility] Last Admin: 04/07/18 19:38 Dose: 500 mg Nifedipine (Procardia Xl) 60 mg PO DAILY [facility] Rosuvastatin Calcium (Crestor) 5 mg PO HS [facility] Last Admin: 04/07/18 21:57 Dose: 5 mg Tamsulosin HCl (Flomax) 0.4 mg PO DAILY [facility] Results - Vital Signs Recent Vital Signs: Last Vital Signs Temp 98.0 F 04/07/18 21:53 Pulse 54 L 04/07/18 21:53 Resp 20 04/07/18 21:53 BP 137/60 04/07/18 21:53 Pulse Ox 97 04/07/18 21:53 - Labs Result Diagrams: 04/07/18 10:47 04/07/18 10:47 Labs: Laboratory Results - last 24 hr 04/07/18 04/07/18 04/07/18 10:47 10:47 16:52 WBC 4.8 RBC 3.41 L Hgb 11.6 L Hct 33.5 L MCV 98.0 H MCH 33.9 H MCHC 34.6 RDW 13.4 Plt Count 187 MPV 9.3 Neut % (Auto) 69.6 Lymph % (Auto) 21.6 Bonner % (Auto) 5.0 Eos % (Auto) 3.3 Baso % (Auto) 0.5 Neut # (Auto) 3.3 Lymph # (Auto) 1.0 Bonner # (Auto) 0.2 Eos # (Auto) 0.2 Baso # (Auto) 0.0 Sodium 139 Potassium 4.7 Chloride 97 L Carbon Dioxide 30 Anion Gap 16 BUN 20 Creatinine 0.9 Est GFR ( Amer) > 60 Est GFR (Non-Af Amer) > 60 POC Glucose (mg/dL) Random Glucose 253 H Calcium 9.4 Total Bilirubin 0.9 AST 14 L D ALT 19 L Alkaline Phosphatase 42 Total Creatine Kinase 72 58 CK-MB (Mass) 0.66 0.55 Troponin I < 0.0120 < 0.0120 NT-Pro-B Natriuret Pep 99.4 Total Protein 7.1 Albumin 4.2 Globulin 2.9 Albumin/Globulin Ratio 1.4 04/07/18 04/07/18 17:25 21:53 WBC RBC Hgb Hct MCV MCH MCHC RDW Plt Count MPV Neut % (Auto) Lymph % (Auto) Bonner % (Auto) Eos % (Auto) Baso % (Auto) Neut # (Auto) Lymph # (Auto) Bonner # (Auto) Eos # (Auto) Baso # (Auto) Sodium Potassium Chloride Carbon Dioxide Anion Gap BUN Creatinine Est GFR ( Amer) Est GFR (Non-Af Amer) POC Glucose (mg/dL) 109 175 H Random Glucose Calcium Total Bilirubin AST ALT Alkaline Phosphatase Total Creatine Kinase CK-MB (Mass) Troponin I NT-Pro-B Natriuret Pep Total Protein Albumin Globulin Albumin/Globulin Ratio Assessment & Plan - Assessment and Plan (Free Text) Assessment: 1) Chest Pain/Non cardiac Recent cath shows Non Obstructive coronaries Normal EF 2) Hypertension - Cont home Valsartan 320mg po daily - Cont home Nifedipine 60mg po daily 3) Hyperlipidemia - Cont home Simvastin 20 -> Crestor 10mg po HS - f/u lipid panel 4) BPH - Cont home Tamsulosin 0.4mg po daily - Cont home Finasteride 5mg po HS 5) Diabetes Mellitus - Cont home Metformin 1000mg po bid - ISS - moderate - Accucheck ACHS - hypoglycemia protocol No further cardiac work up recommended at this time
[2018-04-07 23:11] LABS: CK-MB 0.52 ng/mL (0.0-3.38)
[2018-04-08 07:28] LABS: BASO % 0.7 % (0.0-2.0); EOS # 0.2 K/uL (0.0-0.7); EOS % 5.1 % (0.0-4.0); HEMOGLOBIN 11.4 g/dL (12.0-18.0); LYMPH # 1.3 K/uL (1.0-4.3); LYMPH % 30.7 % (20.0-40.0); MEAN CELL VOLUME 98.5 fL (80.0-94.0); MEAN CORPUSCULAR HEMOGLOBIN 33.4 pg (27.0-31.0); MEAN CORPUSCULAR HGB CONC 33.9 g/dL (33.0-37.0); MEAN PLATELET VOLUME 10.1 fL (7.2-11.7); MONO # 0.3 K/uL (0.0-0.8); MONO % 6.6 % (0.0-10.0); NEUT # 2.5 K/uL (1.8-7.0); NEUT % 56.9 % (50.0-75.0); NRBC % 0.1 % (0.0-2.0); RBC 3.42 Mil/uL (4.40-5.90); RED CELL DISTRIBUTION WIDTH 13.2 % (11.5-14.5); WHITE BLOOD COUNT 4.4 K/uL (4.8-10.8)
[2018-04-08] MEDS: (Novolin R) Insulin Human Regular 100 units/ml vial SC SCH ×4 (07:29→21:41)
--- NOTE | 2018-04-08 07:42 | CP.PCM.PN ---
<CecileDesanmol - Last Filed: 04/08/18 14:54> Subjective - Date & Time of Evaluation Date of Evaluation: 04/08/18 Time of Evaluation: 07:50 - Subjective Subjective: Cardiology Progress Note- Dr. Aviles's service Patient seen and examined in no apparent acute distress. Patient admits to "a little" chest discomfort. He denies palpitations or shortness of breath at this time. Objective - Vital Signs/Intake and Output Vital Signs (last 24 hours): Temp Pulse Resp BP Pulse Ox 97.6 F 45 L 20 127/64 97 04/07/18 23:25 04/08/18 00:05 04/07/18 23:25 04/07/18 23:25 04/08/18 01:00 - Medications Medications: Current Medications Acetaminophen (Tylenol 325mg Tab) 650 mg PO Q6 PRN PRN Reason: Pain, moderate (4-7) Aspirin (Ecotrin) 81 mg PO DAILY [facility] Dextrose (Dextrose 50% Inj) 0 ml IV STAT PRN; Protocol PRN Reason: Hypoglycemia Protocol Dextrose (Glutose 15) 0 gm PO ONCE PRN; Protocol PRN Reason: Hypoglycemia Protocol Finasteride (Proscar) 5 mg PO DAILY [facility] Last Admin: 04/07/18 21:57 Dose: 5 mg Furosemide (Lasix) 20 mg PO DAILY [facility] Glucagon (Glucagen Diagnostic Kit) 0 mg IM STAT PRN; Protocol PRN Reason: Hypoglycemia Protocol Dextrose (Dextrose 5% In Water 1000 Ml) 1,000 mls @ 0 mls/hr IV .Q0M PRN; Protocol; Per Protocol PRN Reason: Hypoglycemia Protocol Insulin Human Regular (Novolin R) 0 unit SC ACHS [facility] PRN Reason: Protocol Last Admin: 04/08/18 07:29 Dose: Not Given Losartan Potassium (Cozaar) 100 mg PO DAILY [facility] Metformin HCl (Glucophage) 500 mg PO BIDCC [facility] Last Admin: 04/07/18 19:38 Dose: 500 mg Nifedipine (Procardia Xl) 60 mg PO DAILY [facility] Rosuvastatin Calcium (Crestor) 5 mg PO HS [facility] Last Admin: 04/07/18 21:57 Dose: 5 mg Tamsulosin HCl (Flomax) 0.4 mg PO DAILY [facility] - Labs Labs: 04/08/18 07:13 04/07/18 10:47 - Constitutional Appears: Non-toxic, No Acute Distress - Head Exam Head Exam: ATRAUMATIC, NORMAL INSPECTION - Eye Exam Eye Exam: EOMI - ENT Exam ENT Exam: Mucous Membranes Moist - Neck Exam Neck Exam: Full ROM - Respiratory Exam Respiratory Exam: NORMAL BREATHING PATTERN - Cardiovascular Exam Cardiovascular Exam: Bradycardia, +S1, +S2. absent: JVD - GI/Abdominal Exam GI & Abdominal Exam: Soft, Normal Bowel Sounds - Extremities Exam Extremities Exam: Full ROM, Pedal Edema (trace) - Back Exam Back Exam: Full ROM - Neurological Exam Neurological Exam: Alert, Awake, Oriented x3 - Psychiatric Exam Psychiatric exam: Normal Affect, Normal Mood Assessment and Plan (1) Chest pain Assessment & Plan: SHERYL negative x3 EKG shows sinus bradycardia with RBBB Cardiac Cath performed 05/2017 with findings of 50% concentric nonobstructive stenosis. Patent left main coronary artery, proximal, distal LAD, diagonal branches, circumflex and obtuse marginal branches. Patient to go for Fractional flow reserve procedure to assess blood pressure in coronaries tomorrow at [facility]. NPO past midnight. F/U New Echo. Prior echo obtained 05/2017 confirms EF of 60-65% Will continue to follow Status: Acute (2) Bradycardia Assessment & Plan: This is patient's baseline. Asymptomatic at this time Oxygen nc PRN Status: Chronic (3) Hypertension Assessment & Plan: Normotensive, will manage accordingly Losartan and procardia on board Status: Chronic (4) Diabetes Assessment & Plan: On metformin HgbA1c is 6.6 Status: Chronic (5) Hyperlipidemia Assessment & Plan: Lipid Panel within normal limits Cont Crestor Diet and exercise modifications Status: Chronic (6) Prophylactic measure Assessment & Plan: Lovenox SC daily No GI prophylaxis indicated currently Status: Acute <Po Aviles - Last Filed: 04/08/18 21:57> Objective - Vital Signs/Intake and Output Vital Signs (last 24 hours): Temp Pulse Resp BP Pulse Ox 98.2 F 55 L 20 120/55 L 96 04/08/18 15:57 04/08/18 16:14 04/08/18 15:57 04/08/18 15:57 04/08/18 15:57 - Medications Medications: Current Medications Acetaminophen (Tylenol 325mg Tab) 650 mg PO Q6 PRN PRN Reason: Pain, moderate (4-7) Aspirin (Ecotrin) 81 mg PO DAILY [facility] Last Admin: 04/08/18 09:09 Dose: 81 mg Dextrose (Dextrose 50% Inj) 0 ml IV STAT PRN; Protocol PRN Reason: Hypoglycemia Protocol Dextrose (Glutose 15) 0 gm PO ONCE PRN; Protocol PRN Reason: Hypoglycemia Protocol Enoxaparin Sodium (Lovenox) 40 mg SC DAILY [facility] Last Admin: 04/08/18 09:08 Dose: 40 mg Finasteride (Proscar) 5 mg PO DAILY [facility] Last Admin: 04/08/18 09:09 Dose: 5 mg Furosemide (Lasix) 20 mg PO DAILY [facility] Last Admin: 04/08/18 09:10 Dose: 20 mg Glucagon (Glucagen Diagnostic Kit) 0 mg IM STAT PRN; Protocol PRN Reason: Hypoglycemia Protocol Dextrose (Dextrose 5% In Water 1000 Ml) 1,000 mls @ 0 mls/hr IV .Q0M PRN; Protocol; Per Protocol PRN Reason: Hypoglycemia Protocol Insulin Human Regular (Novolin R) 0 unit SC ACHS [facility] PRN Reason: Protocol Last Admin: 04/08/18 21:41 Dose: Not Given Losartan Potassium (Cozaar) 100 mg PO DAILY [facility] Last Admin: 04/08/18 09:10 Dose: 100 mg Metformin HCl (Glucophage) 500 mg PO BIDCC [facility] Last Admin: 04/08/18 17:39 Dose: 500 mg Nifedipine (Procardia Xl) 60 mg PO DAILY [facility] Last Admin: 04/08/18 09:08 Dose: 60 mg Rosuvastatin Calcium (Crestor) 5 mg PO HS [facility] Last Admin: 04/08/18 21:42 Dose: 5 mg Tamsulosin HCl (Flomax) 0.4 mg PO DAILY [facility] Last Admin: 04/08/18 09:09 Dose: 0.4 mg - Labs Labs: 04/08/18 07:13 04/08/18 07:13 Assessment and Plan - Assessment and Plan (Free Text) Assessment: Patient seen and evaluated personally by me. Plan of care d/w the biomedical field service engineer and as documented
[2018-04-08 08:00] LABS: ALB/GLOB RATIO 1.3 (1.0-2.1); ALBUMIN 3.7 g/dL (3.5-5.0); ALT/SGPT 20 U/L (21-72); AST/SGOT 15 U/L (17-59); BLOOD UREA NITROGEN 22 mg/dL (9-20); CALCIUM 9.2 mg/dl (8.6-10.4); GFR NON-AFRICAN AMERICAN > 60; HDL CHOLESTEROL 57 mg/dL (30-70)
[2018-04-08 08:11] LABS: LDL CHOLESTEROL 44 mg/dL (0-129)
[2018-04-08] MEDS: NIFEdipine 60 mg ER Tab PO SCH (09:08)
[2018-04-08] MEDS: Enoxaparin 40 mg Syringe SC SCH (09:08)
--- NOTE | 2018-04-08 16:45 | CARD ---
APPROVED REPORT Date of service: 04/07/2018 EKG Measurement Heart [id number] <Conclusion> Sinus bradycardia Right bundle branch block Abnormal ECG
--- NOTE | 2018-04-08 16:45 | CARD ---
APPROVED REPORT Date of service: 04/07/2018 EKG Measurement Heart [id number] <Conclusion> Sinus bradycardia Right bundle branch block Abnormal ECG
--- NOTE | 2018-04-08 16:45 | CARD ---
APPROVED REPORT Date of service: 04/07/2018 EKG Measurement Heart [id number] <Conclusion> Sinus bradycardia Right bundle branch block Abnormal ECG
--- NOTE | 2018-04-08 18:19 | CP.PCM.PN ---
<Juan Carlos Ferreira - Last Filed: 04/08/18 18:16> Subjective - Date & Time of Evaluation Date of Evaluation: 04/08/18 Time of Evaluation: 11:45 - Subjective Subjective: PGY-1 Medicine Progress Note for Dr. Causey Patient seen and examined at bedside, resting comfortably in no acute distress. No acute overnight events reported. No chest pain, palpitations, or shortness of breath at this time. Patient is tolerating diet well. No fevers/chills, nausea/vomiting/diarrhea/constipation, abdominal pain, weakness, dysuria, or change in stool. Objective - Vital Signs/Intake and Output Vital Signs (last 24 hours): Temp Pulse Resp BP Pulse Ox 98.2 F 55 L 20 120/55 L 96 04/08/18 15:57 04/08/18 16:14 04/08/18 15:57 04/08/18 15:57 04/08/18 15:57 - Medications Medications: Current Medications Acetaminophen (Tylenol 325mg Tab) 650 mg PO Q6 PRN PRN Reason: Pain, moderate (4-7) Aspirin (Ecotrin) 81 mg PO DAILY [facility] Last Admin: 04/08/18 09:09 Dose: 81 mg Dextrose (Dextrose 50% Inj) 0 ml IV STAT PRN; Protocol PRN Reason: Hypoglycemia Protocol Dextrose (Glutose 15) 0 gm PO ONCE PRN; Protocol PRN Reason: Hypoglycemia Protocol Enoxaparin Sodium (Lovenox) 40 mg SC DAILY [facility] Last Admin: 04/08/18 09:08 Dose: 40 mg Finasteride (Proscar) 5 mg PO DAILY [facility] Last Admin: 04/08/18 09:09 Dose: 5 mg Furosemide (Lasix) 20 mg PO DAILY [facility] Last Admin: 04/08/18 09:10 Dose: 20 mg Glucagon (Glucagen Diagnostic Kit) 0 mg IM STAT PRN; Protocol PRN Reason: Hypoglycemia Protocol Dextrose (Dextrose 5% In Water 1000 Ml) 1,000 mls @ 0 mls/hr IV .Q0M PRN; Protocol; Per Protocol PRN Reason: Hypoglycemia Protocol Insulin Human Regular (Novolin R) 0 unit SC ACHS [facility] PRN Reason: Protocol Last Admin: 04/08/18 17:39 Dose: 4 units Losartan Potassium (Cozaar) 100 mg PO DAILY [facility] Last Admin: 04/08/18 09:10 Dose: 100 mg Metformin HCl (Glucophage) 500 mg PO BIDCC [facility] Last Admin: 04/08/18 17:39 Dose: 500 mg Nifedipine (Procardia Xl) 60 mg PO DAILY [facility] Last Admin: 04/08/18 09:08 Dose: 60 mg Rosuvastatin Calcium (Crestor) 5 mg PO HS [facility] Last Admin: 04/07/18 21:57 Dose: 5 mg Tamsulosin HCl (Flomax) 0.4 mg PO DAILY [facility] Last Admin: 04/08/18 09:09 Dose: 0.4 mg - Labs Labs: 04/08/18 07:13 04/08/18 07:13 - Constitutional Appears: Non-toxic, No Acute Distress - Head Exam Head Exam: ATRAUMATIC, NORMAL INSPECTION, NORMOCEPHALIC - Eye Exam Eye Exam: EOMI, Normal appearance Pupil Exam: NORMAL ACCOMODATION - ENT Exam ENT Exam: Mucous Membranes Moist, Normal Exam - Neck Exam Neck Exam: Normal Inspection - Respiratory Exam Respiratory Exam: Clear to Ausculation Bilateral, NORMAL BREATHING PATTERN. absent: Rales, Rhonchi, Wheezes - Cardiovascular Exam Cardiovascular Exam: RRR, +S1, +S2 - GI/Abdominal Exam GI & Abdominal Exam: Soft, Normal Bowel Sounds. absent: Distended, Firm, Guarding, Rigid, Tenderness, Mass, Rebound - Extremities Exam Extremities Exam: Normal Inspection - Back Exam Back Exam: NORMAL INSPECTION - Neurological Exam Neurological Exam: Alert, Awake, CN II-XII Intact, Normal Gait, Oriented x3 - Psychiatric Exam Psychiatric exam: Normal Affect, Normal Mood - Skin Skin Exam: Dry, Intact, Normal Color, Warm Assessment and Plan - Assessment and Plan (Free Text) Assessment: 82 yo M with PMHx of HTN, DM, HLD, BPH admitted for chest pain, r/o ACS Plan: 1. Chest Pain, r/o ACS - CXR (04/07): no interval consolidation. Cardiomegaly and mild-moderate pulmonary venous congestion - ROMIs x3 negative - EKG shows sinus bradycardia with RBBB - Cardiac Cath performed 05/2017 with findings of 50% concentric nonobstructive stenosis. Patent left main coronary artery, proximal, distal LAD, diagonal branches, circumflex and obtuse marginal branches. - BNP OA 99.4, increased from 62.1 from last year's admission for the same complaint - lipid panel normal - Hgb A1c: 6.6 - Lasix 20mg po daily - Continue home ASA 81mg po daily - Cardiology recs (Dr. Stefan smith) - Patient to go for Fractional flow reserve procedure to assess blood pressure in coronaries tomorrow at [facility]. - NPO after midnight - F/U New Echo. Prior echo obtained 05/2017 confirms EF of 60-65% 2. Hypertension - Continue home Valsartan 320mg po daily - Continue home Nifedipine 60mg po daily 3. Hyperlipidemia - Continue home Simvastin 20 -> Crestor 10mg po HS - lipid panel normal 4. BPH - Continue home Tamsulosin 0.4mg po daily - Continue home Finasteride 5mg po HS 5. Diabetes Mellitus - Cont home Metformin 1000mg po bid - ISS - moderate - Accucheck ACHS - hypoglycemia protocol Case discussed with Dr. Marium Ferreira, PGY-1 <Carlos Causey - Last Filed: 04/08/18 18:46> Objective - Vital Signs/Intake and Output Vital Signs (last 24 hours): Temp Pulse Resp BP Pulse Ox 98.2 F 55 L 20 120/55 L 96 04/08/18 15:57 04/08/18 16:14 04/08/18 15:57 04/08/18 15:57 04/08/18 15:57 - Medications Medications: Current Medications Acetaminophen (Tylenol 325mg Tab) 650 mg PO Q6 PRN PRN Reason: Pain, moderate (4-7) Aspirin (Ecotrin) 81 mg PO DAILY [facility] Last Admin: 04/08/18 09:09 Dose: 81 mg Dextrose (Dextrose 50% Inj) 0 ml IV STAT PRN; Protocol PRN Reason: Hypoglycemia Protocol Dextrose (Glutose 15) 0 gm PO ONCE PRN; Protocol PRN Reason: Hypoglycemia Protocol Enoxaparin Sodium (Lovenox) 40 mg SC DAILY [facility] Last Admin: 04/08/18 09:08 Dose: 40 mg Finasteride (Proscar) 5 mg PO DAILY [facility] Last Admin: 04/08/18 09:09 Dose: 5 mg Furosemide (Lasix) 20 mg PO DAILY [facility] Last Admin: 04/08/18 09:10 Dose: 20 mg Glucagon (Glucagen Diagnostic Kit) 0 mg IM STAT PRN; Protocol PRN Reason: Hypoglycemia Protocol Dextrose (Dextrose 5% In Water 1000 Ml) 1,000 mls @ 0 mls/hr IV .Q0M PRN; Protocol; Per Protocol PRN Reason: Hypoglycemia Protocol Insulin Human Regular (Novolin R) 0 unit SC ACHS [facility] PRN Reason: Protocol Last Admin: 04/08/18 17:39 Dose: 4 units Losartan Potassium (Cozaar) 100 mg PO DAILY [facility] Last Admin: 04/08/18 09:10 Dose: 100 mg Metformin HCl (Glucophage) 500 mg PO BIDCC [facility] Last Admin: 04/08/18 17:39 Dose: 500 mg Nifedipine (Procardia Xl) 60 mg PO DAILY [facility] Last Admin: 04/08/18 09:08 Dose: 60 mg Rosuvastatin Calcium (Crestor) 5 mg PO HS [facility] Last Admin: 04/07/18 21:57 Dose: 5 mg Tamsulosin HCl (Flomax) 0.4 mg PO DAILY [facility] Last Admin: 04/08/18 09:09 Dose: 0.4 mg - Labs Labs: 04/08/18 07:13 04/08/18 07:13 Attending/Attestation - Attestation I have personally seen and examined this patient.: Yes I have fully participated in the care of the patient.: Yes I have reviewed all pertinent clinical information, including history, physical exam and plan: Yes Notes (Text): 04/08/18 18:46 Medical attending: Patient was seen and examined by me, reviewed the above note by the manager medical affairs and agree with the above note. The patient was with his at bedside. Patient was okay with family members being at bedside when we came and discussed with him. He denied having any chest pain, denied having shortness of breath. His troponins were negative throughout the night. I discussed with cardiology and they asked to keep the patient overnight current. The retention is to bring the patient will to be on [facility] tomorrow for further analysis. The patient will have to be nothing by mouth after midnight and we explained this to the patient Thank you very much, Carlos Causey
[2018-04-09 07:40] LABS: BASO % 0.7 % (0.0-2.0); EOS # 0.2 K/uL (0.0-0.7); EOS % 5.3 % (0.0-4.0); HEMOGLOBIN 12.1 g/dL (12.0-18.0); LYMPH # 1.3 K/uL (1.0-4.3); MEAN CELL VOLUME 98.1 fL (80.0-94.0); MEAN CORPUSCULAR HEMOGLOBIN 33.5 pg (27.0-31.0); MEAN CORPUSCULAR HGB CONC 34.2 g/dL (33.0-37.0); MONO # 0.3 K/uL (0.0-0.8); NEUT # 2.3 K/uL (1.8-7.0); NRBC % 0.1 % (0.0-2.0); RBC 3.6 Mil/uL (4.40-5.90); RED CELL DISTRIBUTION WIDTH 13.1 % (11.5-14.5); WHITE BLOOD COUNT 4.1 K/uL (4.8-10.8)
[2018-04-09 08:04] LABS: ALB/GLOB RATIO 1.3 (1.0-2.1); ALBUMIN 3.9 g/dL (3.5-5.0); ALT/SGPT 26 U/L (21-72); AST/SGOT 12 U/L (17-59); BLOOD UREA NITROGEN 18 mg/dL (9-20); CALCIUM 9.6 mg/dl (8.6-10.4); GFR NON-AFRICAN AMERICAN > 60
[2018-04-09] MEDS: (Novolin R) Insulin Human Regular 100 units/ml vial SC SCH ×4 (08:11→21:13)
--- NOTE | 2018-04-09 09:47 | CP.PCM.PN ---
<Juan Carlos Ferreira - Last Filed: 04/09/18 14:05> Subjective - Date & Time of Evaluation Date of Evaluation: 04/09/18 Time of Evaluation: 09:44 - Subjective Subjective: PGY-1 Medicine Progress Note for Dr. Causey Patient seen and examined this morning at bedside. No acute over night events reported. Patient denies any chest pain this morning. Patient reports he understands the plan to go to [facility] for his FFR procedure later this morning. Denies fever/chills, nausea/vomiting/diarrhea/constipation, abdominal pain or weakness. Patient continues to be asymptomatic with a heart rate in the 50's. Objective - Vital Signs/Intake and Output Vital Signs (last 24 hours): Temp Pulse Resp BP Pulse Ox 97.9 F 42 L 20 132/62 95 04/09/18 08:06 04/09/18 08:06 04/09/18 08:06 04/09/18 08:06 04/09/18 08:06 - Medications Medications: Current Medications Acetaminophen (Tylenol 325mg Tab) 650 mg PO Q6 PRN PRN Reason: Pain, moderate (4-7) Aspirin (Ecotrin) 81 mg PO DAILY [facility] Last Admin: 04/09/18 08:04 Dose: 81 mg Dextrose (Dextrose 50% Inj) 0 ml IV STAT PRN; Protocol PRN Reason: Hypoglycemia Protocol Dextrose (Glutose 15) 0 gm PO ONCE PRN; Protocol PRN Reason: Hypoglycemia Protocol Enoxaparin Sodium (Lovenox) 40 mg SC DAILY [facility] Last Admin: 04/08/18 09:08 Dose: 40 mg Finasteride (Proscar) 5 mg PO DAILY [facility] Last Admin: 04/08/18 09:09 Dose: 5 mg Furosemide (Lasix) 20 mg PO DAILY [facility] Last Admin: 04/08/18 09:10 Dose: 20 mg Glucagon (Glucagen Diagnostic Kit) 0 mg IM STAT PRN; Protocol PRN Reason: Hypoglycemia Protocol Dextrose (Dextrose 5% In Water 1000 Ml) 1,000 mls @ 0 mls/hr IV .Q0M PRN; Protocol; Per Protocol PRN Reason: Hypoglycemia Protocol Insulin Human Regular (Novolin R) 0 unit SC ACHS [facility] PRN Reason: Protocol Last Admin: 04/09/18 08:11 Dose: Not Given Losartan Potassium (Cozaar) 100 mg PO DAILY [facility] Last Admin: 04/08/18 09:10 Dose: 100 mg Metformin HCl (Glucophage) 500 mg PO BIDCC [facility] Last Admin: 04/09/18 08:11 Dose: Not Given Nifedipine (Procardia Xl) 60 mg PO DAILY [facility] Last Admin: 04/08/18 09:08 Dose: 60 mg Rosuvastatin Calcium (Crestor) 5 mg PO HS [facility] Last Admin: 04/08/18 21:42 Dose: 5 mg Tamsulosin HCl (Flomax) 0.4 mg PO DAILY [facility] Last Admin: 04/08/18 09:09 Dose: 0.4 mg - Labs Labs: 04/09/18 07:24 04/09/18 07:24 - Constitutional Appears: Non-toxic, No Acute Distress - Head Exam Head Exam: ATRAUMATIC, NORMAL INSPECTION, NORMOCEPHALIC - Eye Exam Eye Exam: EOMI, Normal appearance Pupil Exam: NORMAL ACCOMODATION - ENT Exam ENT Exam: Normal Exam - Neck Exam Neck Exam: Normal Inspection - Respiratory Exam Respiratory Exam: Clear to Ausculation Bilateral, NORMAL BREATHING PATTERN. absent: Rales, Rhonchi, Wheezes - Cardiovascular Exam Cardiovascular Exam: Bradycardia, +S1, +S2 - GI/Abdominal Exam GI & Abdominal Exam: Soft, Normal Bowel Sounds. absent: Distended, Firm, Guarding, Rigid, Tenderness, Mass, Rebound - Extremities Exam Extremities Exam: Normal Capillary Refill, Normal Inspection. absent: Pedal Edema - Neurological Exam Neurological Exam: Alert, Awake, Oriented x3 - Psychiatric Exam Psychiatric exam: Normal Affect, Normal Mood - Skin Skin Exam: Dry, Intact, Normal Color, Warm Assessment and Plan - Assessment and Plan (Free Text) Assessment: 82 yo M with PMHx of HTN, DM, HLD, BPH who was admitted for chest pain rule out ACS after having chest pain for the past 9 days which started while he was working out on the treadmill. Scheduled for Fractional flow [place] procedure this am to assess blood pressure in coronaries at [facility]. Plan: 1. Chest Pain, r/o ACS - CXR (04/07): no interval consolidation. Cardiomegaly and mild-moderate pulmonary venous congestion - ROMIs x3 negative - EKG shows sinus bradycardia with RBBB - Cardiac Cath performed 05/2017 with findings of 50% concentric nonobstructive stenosis. Patent left main coronary artery, proximal, distal LAD, diagonal branches, circumflex and obtuse marginal branches. - BNP OA 99.4, increased from 62.1 from last year's admission for the same complaint - lipid panel normal - Hgb A1c: 6.6 - Lasix 20mg po daily - Continue home ASA 81mg po daily - Cardiology recs (Dr. Stefan smith) - Patient to go for Fractional flow [place] procedure to assess blood pressure in coronaries at [facility]. - F/U New Echo. Prior echo obtained 05/2017 confirms EF of 60-65% 2. Hypertension - Continue home Valsartan 320mg po daily - Continue home Nifedipine 60mg po daily 3. Hyperlipidemia - Continue home Simvastin 20 -> Crestor 10mg po HS - lipid panel normal 4. BPH - Continue home Tamsulosin 0.4mg po daily - Continue home Finasteride 5mg po HS 5. Diabetes Mellitus - Cont home Metformin 1000mg po bid - ISS - moderate - Accucheck ACHS - hypoglycemia protocol Case discussed with Dr. Marium Ferreira, PGY-1 <Carlos Causey H - Last Filed: 04/09/18 14:30> Objective - Vital Signs/Intake and Output Vital Signs (last 24 hours): Temp Pulse Resp BP Pulse Ox 97.9 F 42 L 20 132/62 95 04/09/18 08:06 04/09/18 08:06 04/09/18 08:06 04/09/18 08:06 04/09/18 08:06 - Medications Medications: Current Medications Acetaminophen (Tylenol 325mg Tab) 650 mg PO Q6 PRN PRN Reason: Pain, moderate (4-7) Aspirin (Ecotrin) 81 mg PO DAILY [facility] Last Admin: 04/09/18 08:04 Dose: 81 mg Dextrose (Dextrose 50% Inj) 0 ml IV STAT PRN; Protocol PRN Reason: Hypoglycemia Protocol Dextrose (Glutose 15) 0 gm PO ONCE PRN; Protocol PRN Reason: Hypoglycemia Protocol Enoxaparin Sodium (Lovenox) 40 mg SC DAILY [facility] Last Admin: 04/08/18 09:08 Dose: 40 mg Finasteride (Proscar) 5 mg PO DAILY [facility] Last Admin: 04/08/18 09:09 Dose: 5 mg Furosemide (Lasix) 20 mg PO DAILY [facility] Last Admin: 09/05/18 09:10 Dose: 20 mg Glucagon (Glucagen Diagnostic Kit) 0 mg IM STAT PRN; Protocol PRN Reason: Hypoglycemia Protocol Dextrose (Dextrose 5% In Water 1000 Ml) 1,000 mls @ 0 mls/hr IV .Q0M PRN; Protocol; Per Protocol PRN Reason: Hypoglycemia Protocol Sodium Chloride (Sodium Chloride 0.45%) 1,000 mls @ 70 mls/hr IV .[id number] [facility] Stop: 04/10/18 23:59 Insulin Human Regular (Novolin R) 0 unit SC ACHS [facility] PRN Reason: Protocol Last Admin: 04/09/18 11:30 Dose: Not Given Losartan Potassium (Cozaar) 100 mg PO DAILY [facility] Last Admin: 04/08/18 09:10 Dose: 100 mg Metformin HCl (Glucophage) 500 mg PO BIDCC [facility] Last Admin: 04/09/18 08:11 Dose: Not Given Nifedipine (Procardia Xl) 60 mg PO DAILY [facility] Last Admin: 04/08/18 09:08 Dose: 60 mg Rosuvastatin Calcium (Crestor) 5 mg PO HS [facility] Last Admin: 04/08/18 21:42 Dose: 5 mg Sodium Polystyrene Sulfonate (Kayexalate Susp) 30 gm PO ONCE ONE Stop: 04/09/18 16:01 Tamsulosin HCl (Flomax) 0.4 mg PO DAILY [facility] Last Admin: 04/08/18 09:09 Dose: 0.4 mg - Labs Labs: 04/09/18 07:24 04/09/18 07:24 Attending/Attestation - Attestation Notes (Text): 04/09/18 14:29 Medical attenidng: I reviewed the above note by the medical detailist and agree with the above. By the time I came with the medical team this morning he was already moved to [facility] for the procedure. I will try to see him when he returns later today. thank you Carlos Causey
--- NOTE | 2018-04-09 12:44 | CP.PCM.PN ---
Subjective - Date & Time of Evaluation Date of Evaluation: 04/09/18 Time of Evaluation: 12:43 - Subjective Subjective: Patient s/p cath and FFR Non obstructive coronaries. Normal EF. Medical management Ambulate after 3pm, today Resume diet IV hydration Check labs in am Objective - Vital Signs/Intake and Output Vital Signs (last 24 hours): Temp Pulse Resp BP Pulse Ox 97.9 F 42 L 20 132/62 95 04/09/18 08:06 04/09/18 08:06 04/09/18 08:06 04/09/18 08:06 04/09/18 08:06 - Medications Medications: Current Medications Acetaminophen (Tylenol 325mg Tab) 650 mg PO Q6 PRN PRN Reason: Pain, moderate (4-7) Aspirin (Ecotrin) 81 mg PO DAILY [facility] Last Admin: 04/09/18 08:04 Dose: 81 mg Dextrose (Dextrose 50% Inj) 0 ml IV STAT PRN; Protocol PRN Reason: Hypoglycemia Protocol Dextrose (Glutose 15) 0 gm PO ONCE PRN; Protocol PRN Reason: Hypoglycemia Protocol Enoxaparin Sodium (Lovenox) 40 mg SC DAILY [facility] Last Admin: 04/08/18 09:08 Dose: 40 mg Finasteride (Proscar) 5 mg PO DAILY [facility] Last Admin: 04/08/18 09:09 Dose: 5 mg Furosemide (Lasix) 20 mg PO DAILY [facility] Last Admin: 04/08/18 09:10 Dose: 20 mg Glucagon (Glucagen Diagnostic Kit) 0 mg IM STAT PRN; Protocol PRN Reason: Hypoglycemia Protocol Dextrose (Dextrose 5% In Water 1000 Ml) 1,000 mls @ 0 mls/hr IV .Q0M PRN; Protocol; Per Protocol PRN Reason: Hypoglycemia Protocol Insulin Human Regular (Novolin R) 0 unit SC ACHS [facility] PRN Reason: Protocol Last Admin: 04/09/18 08:11 Dose: Not Given Losartan Potassium (Cozaar) 100 mg PO DAILY [facility] Last Admin: 04/08/18 09:10 Dose: 100 mg Metformin HCl (Glucophage) 500 mg PO BIDCC [facility] Last Admin: 04/09/18 08:11 Dose: Not Given Nifedipine (Procardia Xl) 60 mg PO DAILY [facility] Last Admin: 04/08/18 09:08 Dose: 60 mg Rosuvastatin Calcium (Crestor) 5 mg PO HS [facility] Last Admin: 04/08/18 21:42 Dose: 5 mg Sodium Polystyrene Sulfonate (Kayexalate Susp) 30 gm PO ONCE ONE Stop: 04/09/18 16:01 Tamsulosin HCl (Flomax) 0.4 mg PO DAILY [facility] Last Admin: 04/08/18 09:09 Dose: 0.4 mg - Labs Labs: 04/09/18 07:24 04/09/18 07:24
[2018-04-09] MEDS ORDERED: Sod Polystyrene Sulf 15 gm/60 ml Susp PO ONE ×2 (16:00→18:57)
[2018-04-09] MEDS: Sodium Chloride 0.45% 1,000 ML IV SCH (19:07)
[2018-04-10] MEDS: Sodium Chloride 0.45% 1,000 ML IV SCH ×3 (03:00→06:27)
[2018-04-10 07:56] LABS: BASO % 0.9 % (0.0-2.0); EOS # 0.2 K/uL (0.0-0.7); EOS % 3.8 % (0.0-4.0); HEMOGLOBIN 11.8 g/dL (12.0-18.0); LYMPH # 1.1 K/uL (1.0-4.3); MEAN CELL VOLUME 97.5 fL (80.0-94.0); MEAN CORPUSCULAR HEMOGLOBIN 33.3 pg (27.0-31.0); MEAN CORPUSCULAR HGB CONC 34.1 g/dL (33.0-37.0); MONO # 0.4 K/uL (0.0-0.8); MONO % 7.7 % (0.0-10.0); NEUT % 63.6 % (50.0-75.0); RBC 3.55 Mil/uL (4.40-5.90); RED CELL DISTRIBUTION WIDTH 12.9 % (11.5-14.5); WHITE BLOOD COUNT 4.7 K/uL (4.8-10.8)
[2018-04-10 08:02] LABS: ALB/GLOB RATIO 1.4 (1.0-2.1); ALBUMIN 3.8 g/dL (3.5-5.0); ALT/SGPT 24 U/L (21-72); AST/SGOT 13 U/L (17-59); BLOOD UREA NITROGEN 19 mg/dL (9-20); GFR NON-AFRICAN AMERICAN > 60
[2018-04-10] MEDS: (Novolin R) Insulin Human Regular 100 units/ml vial SC SCH ×2 (08:28→12:30)
[2018-04-10 08:41] VITALS: TEMP 97.8; O2SAT 96
--- NOTE | 2018-04-10 09:15 | CP.PCM.PN ---
Subjective - Date & Time of Evaluation Date of Evaluation: 04/10/18 Time of Evaluation: 09:14 - Subjective Subjective: PGY-1 Medicine Progress Note for Dr. Causey Objective - Vital Signs/Intake and Output Vital Signs (last 24 hours): Temp Pulse Resp BP Pulse Ox 97.8 F 44 L 20 143/61 96 04/10/18 08:40 04/10/18 08:40 04/10/18 08:40 04/10/18 08:40 04/10/18 08:40 - Medications Medications: Current Medications Acetaminophen (Tylenol 325mg Tab) 650 mg PO Q6 PRN PRN Reason: Pain, moderate (4-7) Aspirin (Ecotrin) 81 mg PO DAILY [facility] Last Admin: 04/09/18 10:00 Dose: Not Given Dextrose (Dextrose 50% Inj) 0 ml IV STAT PRN; Protocol PRN Reason: Hypoglycemia Protocol Dextrose (Glutose 15) 0 gm PO ONCE PRN; Protocol PRN Reason: Hypoglycemia Protocol Enoxaparin Sodium (Lovenox) 40 mg SC DAILY [facility] Last Admin: 04/08/18 09:08 Dose: 40 mg Finasteride (Proscar) 5 mg PO DAILY [facility] Last Admin: 04/08/18 09:09 Dose: 5 mg Furosemide (Lasix) 20 mg PO DAILY [facility] Last Admin: 04/08/18 09:10 Dose: 20 mg Glucagon (Glucagen Diagnostic Kit) 0 mg IM STAT PRN; Protocol PRN Reason: Hypoglycemia Protocol Dextrose (Dextrose 5% In Water 1000 Ml) 1,000 mls @ 0 mls/hr IV .Q0M PRN; Protocol; Per Protocol PRN Reason: Hypoglycemia Protocol Sodium Chloride (Sodium Chloride 0.45%) 1,000 mls @ 70 mls/hr IV .[id number] [facility] Stop: 04/10/18 23:59 Last Admin: 04/10/18 06:27 Dose: 70 mls/hr Insulin Human Regular (Novolin R) 0 unit SC ACHS [facility] PRN Reason: Protocol Last Admin: 04/10/18 08:28 Dose: 3 units Losartan Potassium (Cozaar) 100 mg PO DAILY [facility] Last Admin: 04/08/18 09:10 Dose: 100 mg [facility] Last Admin: 04/09/18 08:11 Dose: Not Given Nifedipine (Procardia Xl) 60 mg PO DAILY [facility] Last Admin: 04/08/18 09:08 Dose: 60 mg Rosuvastatin Calcium (Crestor) 5 mg PO HS [facility] Last Admin: 04/09/18 21:13 Dose: 5 mg Tamsulosin HCl (Flomax) 0.4 mg PO DAILY [facility] Last Admin: 04/08/18 09:09 Dose: 0.4 mg - Labs Labs: 04/10/18 07:43 04/10/18 07:43
[2018-04-10] MEDS: Enoxaparin 40 mg Syringe SC SCH (10:49)
[2018-04-10] MEDS: NIFEdipine 60 mg ER Tab PO SCH (10:50)
[2018-04-10 10:51] VITALS: BP 160/65
[2018-04-10 11:29] VITALS: PULSE 43
--- NOTE | 2018-04-10 14:58 | CP.PCM.DIS ---
<Juan Carlos Ferreira - Last Filed: 04/10/18 14:37> Provider - Provider Date of Admission: 04/07/18 12:29 Attending physician: Carlos Causey DO Time Spent in preparation of Discharge (in minutes): 40 Hospital Course - Lab Results Lab Results: Most Recent Lab Values WBC 4.7 K/uL (4.8-10.8) L 04/10/18 07:43 RBC 3.55 Mil/uL (4.40-5.90) L 04/10/18 07:43 Hgb 11.8 g/dL (12.0-18.0) L 04/10/18 07:43 Hct 34.6 % (35.0-51.0) L 04/10/18 07:43 MCV 97.5 fL (80.0-94.0) H 04/10/18 07:43 MCH 33.3 pg (27.0-31.0) H 04/10/18 07:43 MCHC 34.1 g/dL (33.0-37.0) 04/10/18 07:43 RDW 12.9 % (11.5-14.5) 04/10/18 07:43 Plt Count 210 K/uL (130-400) 04/10/18 07:43 MPV 10.0 fL (7.2-11.7) 04/10/18 07:43 Neut % (Auto) 63.6 % (50.0-75.0) 04/10/18 07:43 Lymph % (Auto) 24.0 % (20.0-40.0) 04/10/18 07:43 Emery % (Auto) 7.7 % (0.0-10.0) 04/10/18 07:43 Eos % (Auto) 3.8 % (0.0-4.0) 04/10/18 07:43 Baso % (Auto) 0.9 % (0.0-2.0) 04/10/18 07:43 Neut # (Auto) 3.0 K/uL (1.8-7.0) 04/10/18 07:43 Lymph # (Auto) 1.1 K/uL (1.0-4.3) 04/10/18 07:43 Emery # (Auto) 0.4 K/uL (0.0-0.8) 04/10/18 07:43 Eos # (Auto) 0.2 K/uL (0.0-0.7) 04/10/18 07:43 Baso # (Auto) 0.0 K/uL (0.0-0.2) 04/10/18 07:43 Sodium 139 mmol/L (132-148) 04/10/18 07:43 Potassium 4.4 mmol/L (3.6-5.2) 04/10/18 07:43 Chloride 101 mmol/L (98-107) 04/10/18 07:43 Carbon Dioxide 29 mmol/L (22-30) 04/10/18 07:43 Anion Gap 14 (10-20) 04/10/18 07:43 BUN 19 mg/dL (9-20) 04/10/18 07:43 Creatinine 0.9 mg/dL (0.8-1.5) 04/10/18 07:43 Est GFR ( Amer) > 60 04/10/18 07:43 Est GFR (Non-Af Amer) > 60 04/10/18 07:43 POC Glucose (mg/dL) 318 mg/dL (65-110) H 04/10/18 11:32 Random Glucose 236 mg/dL (75-110) H 04/10/18 07:43 Hemoglobin A1c 6.6 % (4.2-6.5) H 04/08/18 07:13 Calcium 9.0 mg/dl (8.6-10.4) 04/10/18 07:43 Phosphorus 3.3 mg/dL (2.5-4.5) 04/10/18 07:43 Magnesium 1.8 mg/dL (1.6-2.3) 04/10/18 07:43 Total Bilirubin 0.8 mg/dL (0.2-1.3) 04/10/18 07:43 AST 13 U/L (17-59) L 04/10/18 07:43 ALT 24 U/L (21-72) 04/10/18 07:43 Alkaline Phosphatase 49 U/L (38-126) 04/10/18 07:43 Total Creatine Kinase 62 U/L (55-170) 04/07/18 22:42 CK-MB (Mass) 0.52 ng/mL (0.0-3.38) 04/07/18 22:42 Troponin I < 0.0120 ng/mL (0.00-0.120) 04/07/18 22:42 NT-Pro-B Natriuret Pep 99.4 pg/mL (0-900) 04/07/18 10:47 Total Protein 6.5 g/dL (6.3-8.3) 04/10/18 07:43 Albumin 3.8 g/dL (3.5-5.0) 04/10/18 07:43 Globulin 2.7 gm/dL (2.2-3.9) 04/10/18 07:43 Albumin/Globulin Ratio 1.4 (1.0-2.1) 04/10/18 07:43 Triglycerides 39 mg/dL (0-149) 04/08/18 07:13 Cholesterol 114 mg/dL (0-199) 04/08/18 07:13 LDL Cholesterol Direct 44 mg/dL (0-129) 04/08/18 07:13 HDL Cholesterol 57 mg/dL (30-70) 04/08/18 07:13 - Hospital Course Hospital Course: Hospital course: Mr. Kumar is an 82 yo Korean-speaking male with PMHx of HTN, DM, hyperlipidemia, and benign prostatic hyperplasia who presented to [facility]3] with chest pain for 9 days and was admitted for further workup and observation. As per patient, the pain started when working out on the treadmill. Once the pain started, he ceased exercising but continued to feel the pain. He describes it as an intermittent pulsating pressure on his left chest radiating over his shoulder to his back. He rated the pain a 7/10 at worst , but stated it was a 3/10 on admission. He has been taking aspirin and Tylenol , which only temporarily relieved the pain. He came in today because this is the worst the pain the pain has felt. Of note, he has been hospitalized at [facility] for this issue twice before: once in 05/2017 and again 03/2016. He has been following up with his outpatient instructor private since discharge. He denies any headache, sweating, nausea, vomiting, abdominal pain, dizziness, weakness. EKG and SHERYL x3 were negative. CXR (04/07) demonstrated cardiomegaly and mild- moderate pulmonary venous congestion but no acute findings. BNP on admission was 99.4, increased from 62.1 on previous admission for same complaint. Cardiology (Dr. Aviles) was consulted for further recommendations. Patient's home medications were continued, including: valsartain 320 mg PO daily, nifedipine 60 mg PO daily, ASA 81 mg PO daily, crestor 10 mg PO HS, tamsulosin 0.4 mg PO daily, finasteride 5 mg PO HS, metformin 1000 mg PO BID. Patient was also placed on an insulin sliding scale for uncontrolled diabetes with hypoglycemic protocol and accuchecks. Per Cardiology (Dr. Aviles), patient had a cardiac catheterization performed 2016 with findings of 50% concentric nonobstructive stenosis. Patient had a patent left main coronary artery, proximal, distal LAD, diagonal branches, circumflex and obtuse marginal branches. Patient was transferred to [facility] on 04/09 to go for Fractional flow Gaines procedure to assess blood pressure in his coronary arteries. A follow-up Echocardiogram was also ordered; prior Echo obtained in 05/2017 confirmed EF of 60-65%. FFR was completed successfully and demonstrated nonobstructive coronaries and a normal EF. Patient was cleared from a cardiology perspective and instructed to follow with medical management. On the floor, patient did not complain of any chest pain or palpitations. Patient was afebrile, tolerated his diet well, and ambulated adequately. Patient is medically stable for discharge, per Dr. Causey. He is instructed to follow up with his PMD, Dr. Freedman, within 1-2 weeks of discharge for continued care. He is also instructed to follow up with Dr. Aviles as outpatient to discuss follow-up results of his tests. Patient to continue the following medications, as prescribed: Aspirin 81 mg tablet daily Finasteride 20 mg tablet daily Furosemide 20 mg tablet daily Metformin 1000 mg tablet two times per day Nifedipine 60 mg tablet daily Simvastatin 20 mg tablet daily at bedtime Tamsulosin 0.4 mg capsule daily Valsartan 320 mg tablet daily This is a summary of hospital course. For full detail, please refer to EMR. Discharge Exam - Head Exam Head Exam: ATRAUMATIC, NORMAL INSPECTION, NORMOCEPHALIC - Eye Exam Eye Exam: EOMI, Normal appearance - ENT Exam ENT Exam: Mucous Membranes Moist, Normal Exam - Neck Exam Neck exam: Normal Inspection - Respiratory Exam Respiratory Exam: NORMAL BREATHING PATTERN, UNREMARKABLE. absent: Rales, Rhonchi, Wheezes, Respiratory Distress, Stridor - Cardiovascular Exam Cardiovascular Exam: REGULAR RHYTHM, +S1, +S2 - GI/Abdominal Exam GI & Abdominal Exam: Normal Bowel Sounds, Soft, Unremarkable. absent: Distended , Firm, Guarding, Mass, Rebound, Rigid, Tenderness - Extremities Exam Extremities exam: normal capillary refill, normal inspection, pedal pulses present - Back Exam Back exam: NORMAL INSPECTION - Neurological Exam Neurological exam: Alert, CN II-XII Intact, Normal Gait, Oriented x3, Reflexes Normal - Skin Skin Exam: Dry, Intact, Normal Color, Warm Discharge Plan - Discharge Medications Prescriptions: Aspirin [Ecotrin] 81 mg PO DAILY #30 tabec Finasteride [Proscar] 5 mg PO DAILY #30 tab Furosemide [Lasix] 20 mg PO DAILY #30 tab MetFORMIN [glucoPHAGE] 1 tab PO BID #60 tab NIFEdipine ER [Procardia XL] 60 mg PO DAILY #30 ter Simvastatin 20 mg PO HS #30 tablet Tamsulosin [Flomax] 0.4 mg PO DAILY #30 cap Valsartan [Diovan] 1 tab PO DAILY #30 tab - Follow Up Plan Condition: GOOD Disposition: HOME/ ROUTINE Instructions: Type 2 Diabetes, High Blood Pressure (DC), Diabetes Diet , Bradycardia (DC), Low Salt Diet Additional Instructions: Patient is medically stable for discharge, per Dr. Causey. He is instructed to follow up with his PMD, Dr. Freedman, within 1-2 weeks of discharge for continued care. He is also instructed to follow up with Dr. Aviles as outpatient to discuss follow-up results of his tests. Patient to continue the following medications, as prescribed: Aspirin 81 mg tablet daily Finasteride 20 mg tablet daily Furosemide 20 mg tablet daily Metformin 1000 mg tablet two times per day Nifedipine 60 mg tablet daily Simvastatin 20 mg tablet daily at bedtime Tamsulosin 0.4 mg capsule daily Valsartan 320 mg tablet daily If symptoms worsen, please return to the ED. El paciente es mdicamente estable para el thierry, segn el Dr. Causey. Se le instruye que rosalba un seguimiento con jones PMD, el Dr. Freedman, dentro de pre[place] o dos semanas despus del thierry para recibir atencin continua. Tambin se le instruye que rosalba un seguimiento con el Dr. Aviles mac paciente externo para analizar los resultados de seguimiento de darrin pruebas. Paciente para continuar con los siguientes medicamentos, segn lo recetado: Aspirina 81 mg comprimidos al da Finasteride 20 mg comprimido al da Furosemida 20 mg comprimidos al da Metformina 1000 mg comprimidos dos veces al da Nifedipine 60 mg comprimidos al da Simvastatin 20 mg comprimidos al da antes de acostarse Tamsulosina 0,4 mg cpsula al da Valsartan 320 mg comprimidos al da Si los sntomas empeoran, regrese al servicio de urgencias. Referrals: Po Aviles MD [Staff Provider] - Andre Freedman MD [Staff Provider] - <Carlos Causey - Last Filed: 04/10/18 17:15> Provider - Provider Date of Admission: 04/07/18 12:29 Attending physician: Carlos Causey, Hospital Course - Lab Results Lab Results: Most Recent Lab Values WBC 4.7 K/uL (4.8-10.8) L 04/10/18 07:43 RBC 3.55 Mil/uL (4.40-5.90) L 04/10/18 07:43 Hgb 11.8 g/dL (12.0-18.0) L 04/10/18 07:43 Hct 34.6 % (35.0-51.0) L 04/10/18 07:43 MCV 97.5 fL (80.0-94.0) H 04/10/18 07:43 MCH 33.3 pg (27.0-31.0) H 04/10/18 07:43 MCHC 34.1 g/dL (33.0-37.0) 04/10/18 07:43 RDW 12.9 % (11.5-14.5) 04/10/18 07:43 Plt Count 210 K/uL (130-400) 04/10/18 07:43 MPV 10.0 fL (7.2-11.7) 04/10/18 07:43 Neut % (Auto) 63.6 % (50.0-75.0) 04/10/18 07:43 Lymph % (Auto) 24.0 % (20.0-40.0) 04/10/18 07:43 Emery % (Auto) 7.7 % (0.0-10.0) 04/10/18 07:43 Eos % (Auto) 3.8 % (0.0-4.0) 04/10/18 07:43 Baso % (Auto) 0.9 % (0.0-2.0) 04/10/18 07:43 Neut # (Auto) 3.0 K/uL (1.8-7.0) 04/10/18 07:43 Lymph # (Auto) 1.1 K/uL (1.0-4.3) 04/10/18 07:43 Emery # (Auto) 0.4 K/uL (0.0-0.8) 04/10/18 07:43 Eos # (Auto) 0.2 K/uL (0.0-0.7) 04/10/18 07:43 Baso # (Auto) 0.0 K/uL (0.0-0.2) 04/10/18 07:43 Sodium 139 mmol/L (132-148) 04/10/18 07:43 Potassium 4.4 mmol/L (3.6-5.2) 04/10/18 07:43 Chloride 101 mmol/L (98-107) 04/10/18 07:43 Carbon Dioxide 29 mmol/L (22-30) 04/10/18 07:43 Anion Gap 14 (10-20) 04/10/18 07:43 BUN 19 mg/dL (9-20) 04/10/18 07:43 Creatinine 0.9 mg/dL (0.8-1.5) 04/10/18 07:43 Est GFR ( Amer) > 60 04/10/18 07:43 Est GFR (Non-Af Amer) > 60 04/10/18 07:43 POC Glucose (mg/dL) 318 mg/dL (65-110) H 04/10/18 11:32 Random Glucose 236 mg/dL (75-110) H 04/10/18 07:43 Hemoglobin A1c 6.6 % (4.2-6.5) H 04/08/18 07:13 Calcium 9.0 mg/dl (8.6-10.4) 04/10/18 07:43 Phosphorus 3.3 mg/dL (2.5-4.5) 04/10/18 07:43 Magnesium 1.8 mg/dL (1.6-2.3) 04/10/18 07:43 Total Bilirubin 0.8 mg/dL (0.2-1.3) 04/10/18 07:43 AST 13 U/L (17-59) L 04/10/18 07:43 ALT 24 U/L (21-72) 04/10/18 07:43 Alkaline Phosphatase 49 U/L (38-126) 04/10/18 07:43 Total Creatine Kinase 62 U/L (55-170) 04/07/18 22:42 CK-MB (Mass) 0.52 ng/mL (0.0-3.38) 04/07/18 22:42 Troponin I < 0.0120 ng/mL (0.00-0.120) 04/07/18 22:42 NT-Pro-B Natriuret Pep 99.4 pg/mL (0-900) 04/07/18 10:47 Total Protein 6.5 g/dL (6.3-8.3) 04/10/18 07:43 Albumin 3.8 g/dL (3.5-5.0) 04/10/18 07:43 Globulin 2.7 gm/dL (2.2-3.9) 04/10/18 07:43 Albumin/Globulin Ratio 1.4 (1.0-2.1) 04/10/18 07:43 Triglycerides 39 mg/dL (0-149) 04/08/18 07:13 Cholesterol 114 mg/dL (0-199) 04/08/18 07:13 LDL Cholesterol Direct 44 mg/dL (0-129) 04/08/18 07:13 HDL Cholesterol 57 mg/dL (30-70) 04/08/18 07:13 Attending/Attestation - Attestation I have personally seen and examined this patient.: Yes I have fully participated in the care of the patient.: Yes I have reviewed all pertinent clinical information, including history, physical exam and plan: Yes Notes (Text): 04/10/18 17:11 Medical attending: Patient was seen and examined by me. Agree with the above note by the resident The patient yesterday underwent [facility] and did well with cardiology. To day when we saw the patient he was not in any distress, he reported feeling well and also he did not report chest pain, denied shortness of breath, denied palpitations. He needs to resume all home medications as previous. Carlos Causey
--- NOTE | 2018-04-10 20:21 | CARD ---
APPROVED REPORT Date of service: 04/10/2018 EXAM: Two-dimensional and M-mode echocardiogram with Doppler and color Doppler. Other Information Quality : GoodRhythm : INDICATION Chest Pain RISK FACTORS Hypertension Hyperlipidemia Diabetes 2D DIMENSIONS IVSd1.3 (0.7-1.1cm)LVDd5.1 (3.9-5.9cm) PWd1.2 (0.7-1.1cm)LVDs3.1 (2.5-4.0cm) FS (%) 38.7 %LVEF (%)68.7 (>50%) M-Mode DIMENSIONS Left Atrium (MM)4.55 (2.5-4.0cm)IVSd1.24 (0.7-1.1cm) Aortic Root3.59 (2.2-3.7cm)LVDd5.44 (4.0-5.6cm) Aortic Cusp Exc.2.25 (1.5-2.0cm)PWd1.27 (0.7-1.1cm) FS (%) 45 %LVDs3.01 (2.0-3.8cm) LVEF (%)75 (>50%) Mitral Valve MV E Mukiyhjg51.4cm/sMV A Ytblheny26.6cm/sE/A ratio0.7 TDI E/Lateral E'0.0E/Medial E'0.0 Tricuspid Valve TR Peak [id number]/sTR Peak [id number] LEFT VENTRICLE The left ventricle is normal size. There is normal left ventricular wall thickness. The left ventricular function is normal. The left ventricular ejection fraction is within the normal range. No regional wall motion abnormalities noted. Transmitral Doppler flow pattern is Grade I-abnormal relaxation pattern. LV filling pressure is normal No left ventricle thrombus noted on this study. There is no ventricular septal defect visualized. There is no left ventricular aneurysm. There is no mass noted in the left ventricle. RIGHT VENTRICLE The right ventricle is normal size. There is normal right ventricular wall thickness. The right ventricular systolic function is normal. ATRIA The left atrium is mildly dilated. The right atrium size is normal. The interatrial septum is intact with no evidence for an atrial septal defect. AORTIC VALVE The aortic valve is normal in structure and function. No aortic regurgitation is present. There is no aortic valvular stenosis. There is no aortic valvular vegetation. MITRAL VALVE The mitral valve is normal in structure and function. There is no evidence of mitral valve prolapse. There is no mitral valve stenosis. There is no mitral valve regurgitation noted. TRICUSPID VALVE The tricuspid valve is normal in structure and function. There is no tricuspid valve regurgitation noted. There is no tricuspid valve prolapse or vegetation. There is no tricuspid valve stenosis. PULMONIC VALVE The pulmonary valve is normal in structure and function. There is no pulmonic valvular regurgitation. There is no pulmonic valvular stenosis. GREAT VESSELS The aortic root is normal in size. The ascending aorta is normal in size. The pulmonary artery is normal. The IVC is normal in size and collapses >50% with inspiration. PERICARDIAL EFFUSION The pericardium appears normal. There is no pleural effusion. <Conclusion> The left ventricular function is normal. The left ventricular ejection fraction is within the normal range. No regional wall motion abnormalities noted. Transmitral Doppler flow pattern is Grade I-abnormal relaxation pattern. LV filling pressure is normal The left atrium is mildly dilated.
== END 2018-04-10 15:31 | disposition home or self-care (01) ==
LOC: C.ER 10:07 → C.9E 12:29 → C.5S 20:03
PROVIDERS: ADMIT Hospitalist; ATTEND Hospitalist
DX: R07.89 Other chest pain (principal); I11.9 Hypertensive heart disease without heart failure; N40.0 Benign prostatic hyperplasia without lower urinary tract symptoms; E11.9 Type 2 diabetes mellitus without complications; E78.00 Pure hypercholesterolemia, unspecified; E78.5 Hyperlipidemia, unspecified; Z79.4 Long term (current) use of insulin; Z86.010 Personal history of colon polyps; Z79.82 Long term (current) use of aspirin; Z82.49 Family history of ischemic heart disease and other diseases of the circulatory system; Z83.3 Family history of diabetes mellitus; Z87.891 Personal history of nicotine dependence
CPT/HCPCS: 36415; 71046; 80053; 80061; 82550; 82553; 82948; 83036; 83735; 83880; 84100; 84484; 85025; 93005; 93306; 99283; G0378; J1650; J7030